=== PATIENT | male | born 1965 | race African-American/Black ===

== ENCOUNTER 2019-10-23 09:07 | Inpatient (IN) | payer SELFPAY ==
--- NOTE | 2019-10-23 10:01 | RAD ---
EXAM: Single view of the chest HISTORY: CHF and edema COMPARISON: None FINDINGS: Single view of the chest shows an enlarged cardiomediastinal silhouette. There is no eviden ce of consolidation, mass, or pleural effusion. The bones are unremarkable. IMPRESSION: Cardiomegaly
[2019-10-23] MEDS ORDERED: Furosemide 40 MG/4 ML VIAL ONE (10:08)
[2019-10-23 10:39] LABS: Hemoglobin 10.3 g/dL (14.0-18.0); Mean Corpuscular HGB CONC 29.1 g/dL (32.0-36.0); Mean Corpuscular Hemoglobin 23.2 pg (27.0-31.0); Mean Corpuscular Volume 79.7 fL (78.0-98.0); Mean Platelet Volume 10.2 fL (7.4-10.4); Platelet Count 244 thou/uL (130-400); RBC Distribution Width 15.8 % (11.5-14.5); Red Blood Cell (RBC) Count 4.44 mill/uL (4.70-6.10); White Blood Cell (WBC) Count 6.3 thou/uL (4.8-10.8)
[2019-10-23 10:42] LABS: #Eosinphils 0.1 thou/uL (0.0-0.7); #Lymphocytes 1.4 thou/uL (1.20-3.40); #Monocytes 0.5 thou/uL (0.11-0.59); #Neutrophils 4.3 thou/uL (1.40-6.50); %Basophils 0.6 % (0.0-1.0); %Eosinophils 1.5 % (0.0-10.0); %Lymphocytes 21.6 % (21.0-51.0); %Monocytes 8.3 % (0.0-10.0); %Neutrophils 68.1 % (42.0-75.0)
[2019-10-23 10:53] LABS: ALT (SGPT) 11 U/L (8-55); AST (SGOT) 20 U/L (5-34); Albumin 2.6 g/dL (3.5-5.0); Alkaline Phosphatase 121 U/L (40-110); Anion Gap 11 mmol/L (10-20); BUN (Urea Nitrogen) 36 mg/dL (8.4-25.7); Bilirubin, Total 0.3 mg/dL (0.2-1.2); Calc. Creatinine Clearance 0 mL/min (70-130); Calcium 8.1 mg/dL (7.8-10.44); Carbon Dioxide 22 mmol/L (22-29); Chloride 111 mmol/L (98-107); Estimated GFR-MDRD 32; Glucose 98 mg/dL (70-105); Potassium 5.1 mmol/L (3.5-5.1); Protein, Total 5.6 g/dL (6.0-8.3); Sodium 139 mmol/L (136-145)
[2019-10-23 10:58] LABS: Band 4 % (5-11); Lymphocytes 27 % (21-51); MDiff Complete? YES; Microcytosis SLIGHT = 6-15 cells (100X) (0-5/hpf); Monocytes 7 % (0-10); Neutrophil 61 % (42-75); Polychromasia SLIGHT = 2-3 cells (100X) (0-2/hpf)
[2019-10-23 11:26] LABS: CKMB 6.2 ng/mL (0-6.6)
[2019-10-23 14:35] LABS: Troponin I 0.035 ng/mL (< 0.028)
[2019-10-23] MEDS ORDERED: hydrALAZINE 25 MG TAB PO SCH (16:30)
--- NOTE | 2019-10-23 17:12 | PDOC.HHP ---
Hospitalist HPI - History of Present Illness shortness of breath and swelling History of Present Illness: Mr. Carolina is a 53yo M w/ MHx of CHF (unknown if reduced or preserved ejection fraction), T2DM, HTN who presented to the ED for shortness of breath and swelling. Patient recently relocated from [place]. Two weeks ago, had nausea , vomiting, and diarrhea, so stopped his medications, including lasix. Although his symptoms resolved within four days, didn't retake his medication because was afraid that he would redevelop symptoms. Developed progressively worsening diffuse swelling and over the couple of days prior to presentation, developed dyspnea as with slight movement, orthopnea, and paroxysmal nocturnal dyspnea, so came to the ED. At baseline around March, could walk a block before getting short of breath On encounter, lying comfortably in bed and complained, in addition to abovementioned, of dysuria and increased urinary frequency. Denies fatigue, syncope, presyncope, chest pain or pressure, jaw, shoulder, back pain, pleuritic pain, sputum production, palpitations, diarrhea, hematuria, hematochezia, melena ED Course: In the ED, found to be anasrca, BNP in 3000s, and CXR showed mild interstitial edema with cephalization. He was admitted to the telemetry floor for further management Hospitalist ROS - Review of Systems Constitutional: denies: fever, chills, sweats, weakness, malaise, other Respiratory: reports: SOB with excertion. denies: cough, dry, shortness of breath, hemoptysis, pleuritic pain, sputum, wheezing, other Cardiovascular: reports: orthopnea, paroxysmal noc. dyspnea, edema. denies: chest pain, palpitations, light headedness, other Gastrointestinal: denies: nausea, vomiting, abdominal pain, diarrhea, constipation, melena, hematochezia, other Genitourinary: reports: dysuria, frequency. denies: incontinence, hematuria, retention, other Neurological: denies: weakness, numbness, incoordination, change in speech, confusion, seizures Hospitalist History - Past Medical History Cardiac: reports: CHF, HTN. denies: AFIB, CAD Pulmonary: denies: asthma, COPD Gastrointestinal: reports: no pertinent history Heme/Onc: reports: no pertinent history Hepatobiliary: reports: no pertinent history Psych: reports: no pertinent history Musculoskeletal: reports: no pertinent history Rheumatologic: reports: no pertinent history Infectious Disease: reports: no pertinent history - Past Surgical History Past Surgical History: reports: no pertinent history - Family History Family History: reports: diabetes mellitus, hypertension - Social History Smoking Status: Former smoker (for one year only, in 2006) Tobacco Type: cigarettes Alcohol: reports: Heavy (stopped years ago but drank heavily for 30+ years) Drugs: reports: none Living Situation: With Family Activity level: independent ambulation - Exam General Appearance: NAD, awake alert General - other findings: morbidly obese Eye: PERRL, anicteric sclera Neck: no thyromegaly, no lymphadenopathy, JVD Heart: RRR, no murmur, no gallops, no rubs Respiratory: CTAB, no wheezes, no rales, no ronchi Respiratory - other findings: mildy reduced breath sounds throughout, likely due to body habitus Gastrointestinal: non-tender, non-distended, normal bowel sounds Gastrointestinal - other findings: pitting nodular edema on lower half Extremities: 2+ LE edema Extremities - other findings: anasarca Neurological: cranial nerve grossly intact, normal sensation to touch. negative : no weakness, no focal deficits, facial droop Musculoskeletal: normal tone, normal strength, no muscle wasting Psychiatric: normal affect, normal behavior, A&O x 3 Hospitalist Results - Labs Result Diagrams: 10/23/19 10:21 10/23/19 10:21 Lab results: WBC 6.3 thou/uL (4.8-10.8) 10/23/19 10:21 Hgb 10.3 g/dL (14.0-18.0) L 10/23/19 10:21 Hct 35.4 % (42.0-52.0) L 10/23/19 10:21 MCV 79.7 fL (78.0-98.0) 10/23/19 10:21 Plt Count 244 thou/uL (130-400) 10/23/19 10:21 Neutrophils % 68.1 % (42.0-75.0) 10/23/19 10:21 Band Neuts % (Manual) 4 % (5-11) L 10/23/19 10:21 Sodium 139 mmol/L (136-145) 10/23/19 10:21 Potassium 5.1 mmol/L (3.5-5.1) 10/23/19 10:21 Chloride 111 mmol/L (98-107) H 10/23/19 10:21 Carbon Dioxide 22 mmol/L (22-29) 10/23/19 10:21 BUN 36 mg/dL (8.4-25.7) H 10/23/19 10:21 Creatinine 2.58 mg/dL (0.7-1.3) H 10/23/19 10:21 Glucose 98 mg/dL (70-105) 10/23/19 10:21 Calcium 8.1 mg/dL (7.8-10.44) 10/23/19 10:21 Total Bilirubin 0.3 mg/dL (0.2-1.2) 10/23/19 10:21 AST 20 U/L (5-34) 10/23/19 10:21 ALT 11 U/L (8-55) 10/23/19 10:21 Alkaline Phosphatase 121 U/L (40-110) H 10/23/19 10:21 CK-MB (CK-2) 6.2 ng/mL (0-6.6) 10/23/19 10:21 Troponin I 0.035 ng/mL (< 0.028) H 10/23/19 14:08 B-Natriuretic Peptide 3444.0 pg/mL (0-100) H 10/23/19 10:21 Serum Total Protein 5.6 g/dL (6.0-8.3) L 10/23/19 10:21 Albumin 2.6 g/dL (3.5-5.0) L 10/23/19 10:21 - EKG Interpretation EKG: sinus rhythm, lateral symmetric T-wave inversions, poor R wave progression - Radiology Interpretation Chest x-ray Status: image reviewed by me Additional Comment: cardiomegaly, interstitial edema, and cephalization Hospitalist H&P A/P - Problem (1) CHF (congestive heart failure), NYHA class III Code(s): I50.9 - HEART FAILURE, UNSPECIFIED Status: Acute (2) Hypertensive emergency Code(s): I16.1 - HYPERTENSIVE EMERGENCY Status: Acute (3) T2DM (type 2 diabetes mellitus) Status: Acute (4) Microcytic anemia Code(s): D50.9 - IRON DEFICIENCY ANEMIA, UNSPECIFIED Status: Acute - Plan Plan: #Poorly controlled heart failure due to medication nonadherence; CHF III -medication nonadherence, including to lasix -anasarca, JVD; BNP 3K -EKG lateral ischemia, trop indeterminate -> negative; likely demand ishemia due to hyperdynamic heart function in context of hypervolemia -lasix 40mg IVP bid; strict I/O -hold home coreg considering nonadherence; will restart as symptoms improve -Echocardiography to evaluate for necessity of life saving devices/pacing/ valvular disease #HTN emergency on presentation, systolic > 180 ALEX/CKD, pulmonary edema received Nitro in ED -avoid nephrotoxic at this point -started amlodipine, hydralazine #ALEX/CKD -Creatinine 2.58; considering nonadherence, may be CKD due to T2DM/HTN #T2DM -at home, on metformin and glipizide -morbidly obese, history of nonadherence -sliding scale -A1c, lipid panel #disposition/PPx -full code; patient did not want to discuss surrogate at this point -GI PPx: no indication -DVT PPx: lovenox
[2019-10-23 17:22] LABS: ALT (SGPT) 11 U/L (8-55); AST (SGOT) 21 U/L (5-34); Albumin 2.5 g/dL (3.5-5.0); Alkaline Phosphatase 121 U/L (40-110); Anion Gap 14 mmol/L (10-20); BUN (Urea Nitrogen) 37 mg/dL (8.4-25.7); Bilirubin, Total Less than 0.2 mg/dL (0.2-1.2); Calc. Creatinine Clearance 57 mL/min (70-130); Calcium 7.7 mg/dL (7.8-10.44); Carbon Dioxide 19 mmol/L (22-29); Chloride 110 mmol/L (98-107); Estimated GFR-MDRD 34; Glucose 116 mg/dL (70-105); Potassium 5.3 mmol/L (3.5-5.1); Protein, Total 5.5 g/dL (6.0-8.3); Sodium 138 mmol/L (136-145)
[2019-10-23 17:24] LABS: Troponin I 0.022 ng/mL (< 0.028)
[2019-10-23] MEDS ORDERED: Amlodipine 10 MG TAB PO SCH (17:30)
[2019-10-23 17:32] LABS: Bacteria/HPF None Seen HPF (None Seen); Bilirubin Negative (Negative); Blood, Urine 1+ (Negative); Clarity Clear (Clear); Glucose, Urine (Dipstick) 30 mg/dL (Negative); Leukocyte Negative Leu/uL (Negative); Nitrite Negative (Negative); Protein, Urine (Dipstick) 300 mg/dL (Neg-Trace); Squamous Epithelial 0-3 HPF (0-3); Urobilinogen Normal mg/dL (Less than 2); WBC/HPF 0-3 HPF (0-3)
[2019-10-23] MEDS: hydrALAZINE 25 MG TAB PO SCH (21:05)
[2019-10-24 05:40] LABS: Hemoglobin A1c 5.7 % (4.0-6.0)
[2019-10-24] MEDS: Furosemide 40 MG/4 ML VIAL SLOW IVP SCH ×2 (05:47→15:17)
[2019-10-24 05:58] LABS: Anion Gap 10 mmol/L (10-20); BUN (Urea Nitrogen) 36 mg/dL (8.4-25.7); Calc. Creatinine Clearance 59 mL/min (70-130); Calcium 7.8 mg/dL (7.8-10.44); Carbon Dioxide 25 mmol/L (22-29); Cardiac Risk 2.8 (Less than 4.5); Chloride 109 mmol/L (98-107); Cholesterol 153 mg/dl (< 200 Desired); Estimated GFR-MDRD 32; Glucose 90 mg/dL (70-105); HDL Cholesterol 55 mg/dL (>60 Neg Risk); Iron 16 ug/dL (65-175); Iron Binding Capacity, Total 244 mcg/dL (261-462); LDL Cholesterol, Calculated 80 mg/dL; Sodium 139 mmol/L (136-145); Triglycerides 90 mg/dL (Less than 150)
[2019-10-24] MEDS ORDERED: Prevnar 13-Val Conj/PF 0.5 ML SYRINGE IM ONE (09:00)
[2019-10-24] MEDS ORDERED: Amlodipine 10 MG TAB PO SCH (09:00)
[2019-10-24] MEDS ORDERED: FLU VACC QS2019-20(6MOS UP)/PF 60 MCG/0.5 ML SYRINGE IM ONE (09:00)
[2019-10-24] MEDS: Enoxaparin Sodium 30 MG/0.3 ML SYRINGE SC SCH (09:56)
[2019-10-24] MEDS: hydrALAZINE 25 MG TAB PO SCH ×3 (09:56→20:15)
[2019-10-24] MEDS: Ferrous Sulfate 325 MG TAB PO SCH ×4 (09:57→20:17)
--- NOTE | 2019-10-24 20:12 | CON ---
DATE OF CONSULTATION: 10/24/2019 CONSULTING PROVIDER: Dr. Arnaldo Perkins. REASON FOR CONSULTATION: Iron-deficiency anemia. HISTORY OF PRESENT ILLNESS: The patient is a 53-year-old male with past medical history of congestive heart failure, diabetes, and hypertension, presenting with shortness of breath/dyspnea on exertion, bilateral lower extremity edema and increased abdominal distention and anemia. Upon speaking with the patient, the patient was admitted to [facility] in June 2019 with increased shortness of breath and swelling of the upper lower extremities. He subsequently underwent diuretic therapy as an inpatient and with adequate diuresis, was ultimately discharged to home with home diuretics. While at home, the outpatient diuretics were felt not to be as effective as what was being experienced in the hospital, so he progressively increased the dosing of his diuretics, resulting in increased nausea, vomiting, and diarrhea. With the onset of these symptoms, it prompted him to discontinue his diuretics altogether and over the last 2 to 3 weeks has been slowly having progressive shortness of breath, dyspnea on exertion and bilateral lower extremity edema that has now resulted in increased abdominal distention as well. Given the worsening shortness of breath, it then prompted him to seek healthcare assistance in the [facility] ER and while in the ER was noted to have a mild anemia. Further characterization of this anemia showed that it may have a possible component for iron-deficiency anemia, so he was admitted to the hospital both for diuretic management, in addition to iron-deficiency anemia. Upon questioning the patient about his iron-deficiency anemia, he states that he was diagnosed with iron-deficiency anemia approximately 3 years ago and has required the infusion of IV iron on multiple occasions in the past. He cannot recall any specific etiology for his anemia and he has not had either upper or lower endoscopy. He currently denies any family history of colon polyps or colon cancer, although his father was diagnosed with hepatocellular carcinoma secondary to cirrhosis. Currently, he states that he has been having subjective chills, weight gain ( cannot quantify) and sudden blurry vision to his right eye. However, he currently denies any nausea, vomiting, hematemesis, melena, hematochezia, dysphagia, odynophagia, weight loss, rashes, or easy bruising along with jaundice. REVIEW OF SYSTEMS: A 10-category review of systems was obtained with all responses negative except for the pertinent positives as listed in the HPI. PAST MEDICAL HISTORY: As per HPI. PAST SURGICAL HISTORY: None. FAMILY HISTORY: Denies any GI malignancies other than his father diagnosed with hepatocellular carcinoma secondary to cirrhosis. SOCIAL HISTORY: Denies any tobacco, alcohol, or illicit drug use, although he does have a history of higher alcohol consumption. OUTPATIENT MEDICATIONS: Reviewed. ALLERGIES: IODINE AND LISINOPRIL. PHYSICAL EXAMINATION: VITAL SIGNS: Temperature 97.8, pulse 84, blood pressure 125/74, respiratory rate 16, saturating 98% on room air. GENERAL: The patient was lying in bed, in no acute distress. Alert and oriented x4. No conversational dyspnea. HEENT: Normocephalic atraumatic. No scleral icterus. NECK: Supple. CARDIOVASCULAR: Regular rate and rhythm with no discernible murmurs, gallops, or rubs. RESPIRATORY: Diminished breath sounds in the bilateral lower lung [place], but clear to auscultation bilaterally otherwise. ABDOMEN: Normoactive bowel sounds, soft, mild to moderately distended with thickened skin on the lower abdominal quadrants consistent with anasarca. Tenderness to palpation in all abdominal quadrants to both light and deep palpation. EXTREMITIES: 2+/3+ bilateral lower extremity edema extending into the bilateral thighs. LABORATORY DATA: CBC with a white blood cell count of 6.3, hemoglobin 10.3, hematocrit 35.4, platelets 244. Chemistry with a sodium of 139, potassium 5, chloride 109, CO2 of 25, BUN 36, creatinine 2.6, glucose 90, AST 21, ALT 11, alkaline phosphatase 121, and total bilirubin less than 0.2. Iron 16, ferritin 20, total iron binding complex 244. IMAGING DATA: Chest x-ray obtained on October 23, 2019, showed an enlarged cardiomediastinal silhouette. There was no evidence of consolidation mass or pleural effusion. ASSESSMENT AND PLAN: The patient is a 53-year-old male with past medical history of diabetes, hypertension, and congestive heart failure, presenting with acute on chronic exacerbation of his congestive heart failure in addition to a mixed anemia type picture. 1. Anemia. The patient is presenting with a mild anemia characterized as a hemoglobin of 10.3 and hematocrit of 35.4. Upon further characterization of this anemia, he was noted to have a low iron and low ferritin, which can be seen in iron-deficiency anemia as well as a slightly elevated RDW, but his MCV is actually normal and his total iron binding complex is low indicative more of an anemia of chronic disease or renal disease process. Upon speaking with the patient, he has been diagnosed with iron deficiency in the past and has received multiple infusions of IV iron in order to correct although he has never had an upper endoscopy or colonoscopy for further evaluation of this iron-deficiency anemia. At this time , he has a mixed picture between iron-deficiency anemia and anemia of chronic disease (likely related to his congestive heart failure) and would benefit from further evaluation with upper and lower endoscopy. However, given his significantly worsening congestive heart failure, optimization of his cardiac status should be performed first prior to any sort of invasive interventions. RECOMMENDATIONS: 1. We would continue to trend his H and H and transfuse as necessary to maintain an H and H of 7/. 2. Continue to monitor clinically for signs of active GI bleeding. 3. We would continue to optimize his cardiac status with diuretic management in light of acute exacerbation of his congestive heart failure. Once the patient has experienced adequate diuresis, endoscopy could be considered at that time. 4. We will hold on upper endoscopy and colonoscopy for further evaluation of this iron-deficiency anemia. 5. We will continue to monitor the patient. Once the patient is adequately diuresed, would proceed with endoscopy at that time. We will continue to follow peripherally until adequately diuresed. Please call with any questions. Job ID: [id number] [facility]ITAL[facility]
--- NOTE | 2019-10-24 20:42 | PDOC.HOSPP ---
- Subjective Encounter Date: 10/24/19 Encounter Time: 08:00 Subjective: no overnight events. This morning, has no complaints and endorses improved breathing and edema. - Objective Vital Signs & Weight: Vital Signs (12 hours) Temp Pulse Resp BP BP BP Pulse Ox 10/24/19 20:15 90 137/79 10/24/19 19:25 98.4 F 90 16 137/79 95 10/24/19 15:17 84 125/74 10/24/19 15:15 97.8 F 81 16 125/74 98 10/24/19 12:03 98.5 F 88 18 153/88 H 95 10/24/19 09:56 90 163/94 H 10/24/19 09:55 90 163/94 H 10/24/19 09:10 93 L Weight Weight 248 lb 1.6 oz I&O: 10/23/19 10/24/19 10/25/19 06:59 06:59 06:59 Intake Total 610 764 Output Total 450 1025 Balance 160 -261 Result Diagrams: 10/23/19 10:21 10/24/19 04:53 Additional Labs: Accuchecks 10/24/19 10/24/19 10/24/19 20:11 16:26 10:51 POC Glucose 131 H 122 H 135 H 10/23/19 21:08 POC Glucose 109 Hospitalist ROS - Review of Systems Constitutional: denies: fever, chills, sweats, weakness, malaise, other Respiratory: denies: cough, dry, shortness of breath, hemoptysis, SOB with excertion, pleuritic pain, sputum, wheezing, other Cardiovascular: reports: orthopnea, paroxysmal noc. dyspnea, edema. denies: chest pain, palpitations, light headedness, other Gastrointestinal: denies: nausea, vomiting, abdominal pain, diarrhea, constipation, melena, hematochezia, other Genitourinary: denies: dysuria, frequency, incontinence, hematuria, retention, other - Medication Medications: Active Medications Generic Name Dose Route Start Last Admin Trade Name Freq PRN Reason Stop Dose Admin Amlodipine Besylate 10 mg 10/24/19 09:00 10/24/19 09:55 Norvasc PO 10 mg DAILY JEN Administration Enoxaparin Sodium 30 mg 10/24/19 09:00 10/24/19 09:56 Lovenox SC 30 mg 0900 JEN Administration Ferrous Sulfate 325 mg 10/24/19 09:30 10/24/19 20:17 Feosol PO 325 mg Q2D JEN Administration Ferrous Sulfate 325 mg 10/24/19 15:00 10/24/19 15:17 Feosol PO 325 mg Q2D JEN Administration Ferrous Sulfate 325 mg 10/24/19 21:00 10/24/19 20:15 Feosol PO 325 mg Q2D JEN Administration Furosemide 40 mg 10/24/19 06:00 10/24/19 15:17 Lasix SLOW IVP 40 mg 0600,1400 JEN Administration Hydralazine HCl 25 mg 10/23/19 21:00 10/24/19 20:15 Apresoline PO 25 mg TID JEN Administration - Exam General Appearance: NAD, awake alert Heart: RRR, no murmur, no gallops, no rubs, normal peripheral pulses Respiratory: CTAB, no wheezes, no ronchi, normal chest expansion, no tachypnea Respiratory - other findings: mild inspiratory rales, lower [place] Gastrointestinal - other findings: edema Extremities: 2+ LE edema Extremities - other findings: no improvement Psychiatric: normal affect, normal behavior, A&O x 3 Hosp A/P (1) CHF (congestive heart failure), NYHA class III Code(s): I50.9 - HEART FAILURE, UNSPECIFIED Status: Acute (2) Hypertensive emergency Code(s): I16.1 - HYPERTENSIVE EMERGENCY Status: Acute (3) T2DM (type 2 diabetes mellitus) Status: Acute (4) Microcytic anemia Code(s): D50.9 - IRON DEFICIENCY ANEMIA, UNSPECIFIED Status: Acute - Plan #CHFrEF III -EF 10-15%; global hypokinesis -symptoms improved; will gradually reintroduce coreg; stop amlodipine to prevent hypotension and contribution to edema -will consult cardiology; changed to inpatient status considering requires further evaluation, optimization, and possible life vest/AICD #ALEX -no significant change -continue diuresis -can start lisinopril gradually, entresto if tolerates with resolution of ALEX #mixed anemia -RDW high MCV borderline low, ferritin, iron and sat low c/w iron deficiency but transferrin borderline low c/w anemia of chronic inflammation -per GI, will consider endoscopy once patient stabilized -conitnue H&H -iron being supplemented. -
[2019-10-25 05:20] LABS: Anion Gap 11 mmol/L (10-20); BUN (Urea Nitrogen) 38 mg/dL (8.4-25.7); Calc. Creatinine Clearance 52 mL/min (70-130); Calcium 7.4 mg/dL (7.8-10.44); Carbon Dioxide 22 mmol/L (22-29); Chloride 111 mmol/L (98-107); Estimated GFR-MDRD 30; Glucose 124 mg/dL (70-105); Potassium 5.2 mmol/L (3.5-5.1); Sodium 139 mmol/L (136-145)
[2019-10-25 05:54] LABS: #Eosinphils 0.2 thou/uL (0.0-0.7); #Lymphocytes 1.6 thou/uL (1.20-3.40); #Monocytes 0.5 thou/uL (0.11-0.59); #Neutrophils 4.3 thou/uL (1.40-6.50); %Basophils 0.6 % (0.0-1.0); %Eosinophils 2.4 % (0.0-10.0); %Lymphocytes 24.4 % (21.0-51.0); %Monocytes 7.5 % (0.0-10.0); %Neutrophils 65.1 % (42.0-75.0); Hemoglobin 9.9 g/dL (14.0-18.0); Mean Corpuscular HGB CONC 28.8 g/dL (32.0-36.0); Mean Corpuscular Hemoglobin 23.3 pg (27.0-31.0); Mean Platelet Volume 9.8 fL (7.4-10.4); Platelet Count 276 thou/uL (130-400); RBC Distribution Width 15.8 % (11.5-14.5); Red Blood Cell (RBC) Count 4.24 mill/uL (4.70-6.10); White Blood Cell (WBC) Count 6.6 thou/uL (4.8-10.8)
[2019-10-25] MEDS: Furosemide 40 MG/4 ML VIAL SLOW IVP SCH ×2 (06:04→14:32)
[2019-10-25] MEDS ORDERED: Carvedilol 25 MG TAB PO SCH ×2 (08:00→09:00)
[2019-10-25] MEDS: Enoxaparin Sodium 30 MG/0.3 ML SYRINGE SC SCH (08:38)
[2019-10-25] MEDS ORDERED: Lisinopril 20 MG TAB PO SCH (09:00)
--- NOTE | 2019-10-25 09:47 | CON ---
DATE OF CONSULTATION: 10/25/2019 HISTORY OF PRESENT ILLNESS: The patient is an unfortunate 53-year-old gentle with a history of a severe nonischemic cardiomyopathy, who presents with increasing dyspnea and lower extremity swelling. The patient has a history of apparent nonischemic cardiomyopathy. In 11/2018, he developed congestive heart failure. He underwent a cardiac catheterization. He states that he was found to have normal coronary arteries. The patient subsequently was placed on medical therapy. He was readmitted several months later to another hospital in [place] with congestive heart failure. The patient states he has been compliant with his medications. He is nauseated and stopped taking his medications a few weeks ago. The patient started taking diuretics again, but continued to have worsening edema. The patient denies having any chest discomfort. He reports having dyspnea with minimal exertion. PAST MEDICAL HISTORY: 1. Cardiomyopathy. 2. Hypertension. 3. Diabetes mellitus. 4. Dyslipidemia. 5. Anemia. PAST SURGICAL HISTORY: SOCIAL HISTORY: Nonsmoker. ALLERGIES: IODINE. FAMILY HISTORY: No strong family history of coronary artery disease. PHYSICAL EXAMINATION: GENERAL: This is an ill-appearing gentleman. VITAL SIGNS: Blood pressure 137/79. NECK: No jugular venous distention. LUNGS: Clear to auscultation. HEART: Regular rate and rhythm with a normal S1, S2, 1/6 systolic murmur. ABDOMEN: Markedly distended. EXTREMITIES: Severe bilateral edema. LABORATORY RESULTS: White blood cell count 6.6, hemoglobin 9.9, hematocrit 34.3 , and platelets 276. Sodium was 139, potassium 5.2, chloride 111, bicarbonate 22 , BUN 28, and creatinine 2.7. EKG revealed him to have normal sinus rhythm, nonspecific T-wave abnormality. Echocardiogram revealed severe decrease in left ventricular systolic function, estimated ejection fraction 10% to 15% with global hypokinesis. IMPRESSION: 1. Congestive heart failure. 2. Severe nonischemic cardiomyopathy. 3. Renal insufficiency. 4. Diabetes mellitus. 5. Hypertension. 6. Anemia. PLAN: This unfortunate gentleman presents with worsening congestive heart failure. We would recommend placing him on IV dobutamine. We will continue IV Lasix. We will start the patient on BiDil since he has significant renal insufficiency and avoid TODD inhibitor therapy at this time. We will obtain records from his previous hospitalizations. We will follow this patient with you. Job ID: [id number] [facility]
[2019-10-25] MEDS: DOBUTamine 500 mg/250 ml 250 ML IVPB SCH (10:56)
--- NOTE | 2019-10-25 13:26 | PDOC.HOSPP ---
- Subjective Encounter Date: 10/25/19 Encounter Time: 09:00 Subjective: no overnight events. This morning, breathing is better and feels that swelling has gone down as well. no complaints. - Objective Vital Signs & Weight: Vital Signs (12 hours) Temp Pulse Resp BP BP BP Pulse Ox 10/25/19 11:18 97.5 F L 81 18 126/67 95 10/25/19 08:37 137/79 10/25/19 07:36 97.9 F 82 16 140/83 96 10/25/19 03:10 98.0 F 84 17 124/69 96 Weight Weight 252 lb 12.8 oz I&O: 10/24/19 10/25/19 10/26/19 06:59 06:59 06:59 Intake Total 610 1244 Output Total 450 1575 Balance 160 -331 Result Diagrams: 10/25/19 05:40 10/25/19 04:48 Additional Labs: Accuchecks 10/25/19 10/24/19 10/24/19 11:25 20:11 16:26 POC Glucose 116 H 131 H 122 H Hospitalist ROS - Review of Systems Constitutional: denies: fever, chills, sweats, weakness, malaise, other Respiratory: denies: cough, dry, shortness of breath, hemoptysis, SOB with excertion (endorses being able to walk down [place] without shortness of breath, improvement), pleuritic pain, sputum, wheezing, other Cardiovascular: denies: chest pain, palpitations, orthopnea, paroxysmal noc. dyspnea, edema, light headedness, other Gastrointestinal: denies: nausea, vomiting, abdominal pain, diarrhea, constipation, melena, hematochezia, other Genitourinary: denies: dysuria, frequency, incontinence, hematuria, retention, other - Medication Medications: Active Medications Generic Name Dose Route Start Last Admin Trade Name Freq PRN Reason Stop Dose Admin Enoxaparin Sodium 30 mg 10/24/19 09:00 10/25/19 08:38 Lovenox SC 30 mg 0900 [facility] Administration Ferrous Sulfate 325 mg 10/24/19 09:30 10/24/19 20:17 Feosol PO 325 mg Q2D JEN Administration Ferrous Sulfate 325 mg 10/24/19 15:00 10/24/19 15:17 Feosol PO 325 mg Q2D JEN Administration Ferrous Sulfate 325 mg 10/24/19 21:00 10/24/19 20:15 Feosol PO 325 mg Q2D JEN Administration Furosemide 40 mg 10/24/19 06:00 10/25/19 06:04 Lasix SLOW IVP 40 mg 0600,1400 JEN Administration Dobutamine HCl/Dextrose 250 mls @ 17.2 mls/hr 10/25/19 09:30 10/25/19 10:56 Dobutamine 500 Mg/250 Ml IVPB 250 mls INF JEN Administration Protocol 5 MCG/KG/MIN - Exam General Appearance: NAD, awake alert Neck: no JVD Heart: RRR, no murmur, no gallops, no rubs Respiratory: CTAB, no wheezes, no ronchi Respiratory - other findings: mild b/l lower field inspiratory rales Extremities: 2+ LE edema Extremities - other findings: unchanged Musculoskeletal: normal tone, normal strength Psychiatric: normal affect, normal behavior, A&O x 3 Hosp A/P (1) CHF (congestive heart failure), NYHA class III Code(s): I50.9 - HEART FAILURE, UNSPECIFIED Status: Acute (2) Hypertensive emergency Code(s): I16.1 - HYPERTENSIVE EMERGENCY Status: Acute (3) T2DM (type 2 diabetes mellitus) Status: Acute (4) Microcytic anemia Code(s): D50.9 - IRON DEFICIENCY ANEMIA, UNSPECIFIED Status: Acute - Plan #CHFrEF III -EF 10-15%; global right hypokinesis -per cardiology, stopped lisinopril (ALEX, reduced GFR), started Bidil, continue hydralazine, start dobutamine #ALEX -no significant change -continue diuresis -can start lisinopril gradually, entresto if tolerates with resolution of ALEX #mixed anemia -RDW high MCV borderline low, ferritin, iron and sat low c/w iron deficiency but transferrin borderline low c/w anemia of chronic inflammation -per GI, will consider endoscopy once patient stabilized -conitnue H&H -iron being supplemented.
[2019-10-25] MEDS: hydrALAZINE 25 MG TAB PO SCH ×2 (14:33→20:49)
[2019-10-25] MEDS ORDERED: Isosorbide Dinitrate 20 MG TAB PO SCH ×2 (15:00→16:00)
--- NOTE | 2019-10-25 15:54 | EKG ---
Test Reason : Blood Pressure : / mmHG Vent. Rate : 094 BPM Atrial Rate : 094 BPM P-R Int : 136 ms QRS Dur : 088 ms QT Int : 372 ms P-R-T Axes : 059 017 212 degrees QTc Int : 465 ms Normal sinus rhythm Low voltage QRS Poor anterior R wave progression Abnormal ECG Confirmed by DR. Danica BERMEO MD ([id number]) on 10/25/2019 3:53:56 PM Referred By: Confirmed By:DR. Danica BERMEO MD
[2019-10-25] MEDS: Isosorbide Dinitrate 20 MG TAB PO SCH ×2 (17:02→20:50)
[2019-10-25] MEDS ORDERED: Furosemide 100 MG/10 ML VIAL SLOW IVP SCH (18:45)
[2019-10-26] MEDS: DOBUTamine 500 mg/250 ml 250 ML IVPB SCH ×2 (04:16→17:00)
[2019-10-26] MEDS: Furosemide 100 MG/10 ML VIAL SLOW IVP SCH ×2 (05:47→14:02)
[2019-10-26 06:01] LABS: Hemoglobin 9.8 g/dL (14.0-18.0)
[2019-10-26 06:25] LABS: Magnesium 1.9 mg/dL (1.6-2.6); Potassium 4.2 mmol/L (3.5-5.1)
[2019-10-26] MEDS: hydrALAZINE 25 MG TAB PO SCH ×3 (08:54→20:04)
[2019-10-26] MEDS: Isosorbide Dinitrate 20 MG TAB PO SCH ×3 (08:54→20:04)
[2019-10-26] MEDS: Enoxaparin Sodium 30 MG/0.3 ML SYRINGE SC SCH (08:56)
[2019-10-26] MEDS ORDERED: Metolazone 5 MG TAB PO SCH (13:30)
--- NOTE | 2019-10-26 13:34 | PDOC.HOSPP ---
- Subjective Encounter Date: 10/26/19 Encounter Time: 13:32 Subjective: Doing ok. Breathing ok. Voiding well. No new complaints. - Objective Vital Signs & Weight: Vital Signs (12 hours) Temp Pulse Resp BP BP Pulse Ox 10/26/19 11:47 98.9 F 103 H 13 171/80 H 94 L 10/26/19 08:54 113 H 178/83 H 10/26/19 07:49 98.3 F 108 H 18 176/82 H 92 L 10/26/19 04:15 100 16 167/80 H 10/26/19 03:59 98.3 F 101 H 14 111/59 L 96 Weight Weight 246 lb 12.8 oz I&O: 10/25/19 10/26/19 10/27/19 06:59 06:59 06:59 Intake Total 1244 1549 240 Output Total 1575 2300 1200 Balance -331 -751 -960 Result Diagrams: 10/26/19 05:41 10/26/19 05:41 Additional Labs: Accuchecks 10/26/19 10/26/19 10/25/19 10:27 05:42 21:03 POC Glucose 103 88 109 10/25/19 16:44 POC Glucose 113 H Hospitalist ROS - Medication Medications: Active Medications Generic Name Dose Route Start Last Admin Trade Name Sebastian PRN Reason Stop Dose Admin Enoxaparin Sodium 30 mg 10/24/19 09:00 10/26/19 08:56 Lovenox SC 30 mg 0900 JEN Administration Ferrous Sulfate 325 mg 10/24/19 09:30 10/24/19 20:17 Feosol PO 325 mg Q2D JEN Administration Ferrous Sulfate 325 mg 10/24/19 15:00 10/24/19 15:17 Feosol PO 325 mg Q2D JEN Administration Ferrous Sulfate 325 mg 10/24/19 21:00 10/24/19 20:15 Feosol PO 325 mg Q2D JEN Administration Furosemide 80 mg 10/26/19 06:00 10/26/19 05:47 Lasix SLOW IVP 80 mg 0600,1400 JEN Administration Dobutamine HCl/Dextrose 250 mls @ 17.2 mls/hr 10/25/19 09:30 10/26/19 04:16 Dobutamine 500 Mg/250 Ml IVPB 250 mls INF JEN Administration 5 MCG/KG/MIN Isosorbide Dinitrate 20 mg 10/25/19 15:00 10/26/19 08:54 Isordil PO 20 mg TID JEN Administration Sodium Chloride 10 ml 10/25/19 21:00 10/26/19 09:00 Flush - Normal Saline IVF Not Given Q12HR JEN Sodium Chloride 10 ml 10/25/19 09:41 10/26/19 05:47 Flush - Normal Saline IVF 10 ml PRN PRN Administration Saline Flush - Exam General Appearance: NAD, awake alert Heart: RRR, no murmur, no gallops, no rubs, normal peripheral pulses Respiratory: CTAB, no wheezes, no rales, no ronchi, normal chest expansion, no tachypnea, normal percussion Respiratory - other findings: Diminished at bases. Gastrointestinal: soft, non-tender, non-distended, normal bowel sounds, no palpable masses, no hepatomegaly, no splenomegaly, no bruit Extremities: 2+ LE edema Psychiatric: normal affect, normal behavior, A&O x 3 Hosp A/P (1) Anemia of chronic disease Code(s): D63.8 - ANEMIA IN OTHER CHRONIC DISEASES CLASSIFIED ELSEWHERE Status : Acute (2) Nonischemic cardiomyopathy Code(s): I42.8 - OTHER CARDIOMYOPATHIES Status: Acute (3) CHF (congestive heart failure), NYHA class III Code(s): I50.9 - HEART FAILURE, UNSPECIFIED Status: Acute (4) Hypertensive emergency Code(s): I16.1 - HYPERTENSIVE EMERGENCY Status: Acute (5) T2DM (type 2 diabetes mellitus) Status: Acute (6) Stage 3b chronic kidney disease Code(s): N18.3 - CHRONIC KIDNEY DISEASE, STAGE 3 (MODERATE) Status: Acute - Plan CHF due to non-compliance and non-ischemic cardiomyopathy with EF 15%. On Lasix and a Dobutamine with good results so far. Still has anasarca. Dr. Vila increased the Hydralazine and continuing the Isosorbide. No ACEI in light of renal function. Renal function is stable. Blood sugars controlled. Continue iron supplementation, but appears to be related to anemia of chronic disease given low binding capacity.
[2019-10-26] MEDS: Ferrous Sulfate 325 MG TAB PO SCH ×2 (14:01→20:04)
[2019-10-26] MEDS ORDERED: Acetaminophen 325 MG TAB PO PRN (20:04)
--- NOTE | 2019-10-26 20:05 | PRG ---
DATE OF SERVICE: 10/26/2019 REASON FOR CONSULTATION: Iron deficiency anemia, anemia. SUBJECTIVE: The patient states that since admission, his breathing status has improved significantly. However, he does continue to have increased lower extremity edema as well as edema within the lower abdomen. Currently, he is doing well with no difficulties tolerating solid diet and has been on diuretic management with increased urination while on this regimen. Otherwise, he denies any nausea, vomiting, fevers, chills, GI bleeding, dysphagia, or odynophagia. OBJECTIVE: VITAL SIGNS: Temperature 98.2, pulse 105, blood pressure 158/76, respiratory rate 15, saturating 93% on room air. GENERAL: The patient was lying in bed, in no acute distress. Alert and oriented x4. CARDIOVASCULAR: Tachycardic rate, but regular rhythm. RESPIRATORY: Diminished breath sounds in the bilateral lower lung [place], but clear to auscultation otherwise. ABDOMEN: Normoactive bowel sounds, soft, mild to moderately distended abdomen with thickened skin in the lower abdominal quadrants consistent with anasarca that was tender to palpation. EXTREMITIES: 2+ bilateral lower extremity edema extending into the thighs and lower abdomen. LABORATORY DATA: CBC with a hemoglobin of 9.8, hematocrit 33.4. IMAGING DATA: No current GI imaging is available for review. ASSESSMENT AND PLAN: The patient is a 53-year-old male with past medical history of diabetes, hypertension, and congestive heart failure, presenting with an acute on chronic exacerbation of congestive heart failure in addition to a mixed anemia type picture. Anemia. The patient is presenting with mild anemia with no significant decrease during this admission. At this time, characterization yields more mixed type picture between iron deficiency anemia and anemia of chronic disease. With the possibility of iron deficiency anemia and lack of endoscopic studies performed in the past, he may benefit from intraluminal endoscopic evaluation; however, given his significant congestive heart failure, optimization of his cardiac status should be performed prior to any sort of invasive interventions, especially given his stable clinical condition at this time. RECOMMENDATIONS: 1. Would continue to trend his hemoglobin and hematocrit and transfuse as necessary to maintain hemoglobin and hematocrit of 7/21. 2. Continue to monitor clinically for signs of active GI bleeding. 3. Continue with optimization of his cardiac status with aggressive diuresis and cardiology consultation. 4. We will continue to hold on upper endoscopy and colonoscopy until cleared by Cardiology that is safe to proceed. We will continue to follow peripherally until the patient is adequately diuresed and cleared by Cardiology for endoscopy. Please call with any questions. Job ID: [id number]
[2019-10-27 05:24] LABS: Anion Gap 10 mmol/L (10-20); BUN (Urea Nitrogen) 37 mg/dL (8.4-25.7); Calc. Creatinine Clearance 50 mL/min (70-130); Calcium 7.8 mg/dL (7.8-10.44); Carbon Dioxide 28 mmol/L (22-29); Chloride 106 mmol/L (98-107); Estimated GFR-MDRD 30; Glucose 81 mg/dL (70-105); Potassium 4.1 mmol/L (3.5-5.1); Sodium 140 mmol/L (136-145)
[2019-10-27] MEDS: Furosemide 100 MG/10 ML VIAL SLOW IVP SCH ×2 (06:20→13:53)
[2019-10-27] MEDS: DOBUTamine 500 mg/250 ml 250 ML IVPB SCH (09:27)
[2019-10-27] MEDS: Isosorbide Dinitrate 20 MG TAB PO SCH ×3 (09:28→21:36)
[2019-10-27] MEDS: hydrALAZINE 25 MG TAB PO SCH ×3 (09:28→21:36)
[2019-10-27] MEDS: Enoxaparin Sodium 30 MG/0.3 ML SYRINGE SC SCH (09:28)
--- NOTE | 2019-10-27 11:22 | PDOC.HOSPP ---
- Subjective Encounter Date: 10/27/19 Encounter Time: 11:21 Subjective: He reports some dizziness and nausea. Says he feels like his blood sugar is "off", but he doesn't want to eat anything because of the nausea. - Objective Vital Signs & Weight: Vital Signs (12 hours) Temp Pulse Resp BP BP Pulse Ox 10/27/19 09:28 119 H 10/27/19 07:17 98.7 F 119 H 20 143/76 H 94 L 10/27/19 03:30 99.3 F 110 H 14 162/72 H 95 10/27/19 00:00 103 H 15 121/58 L Weight Weight 243 lb 8 oz I&O: 10/26/19 10/27/19 10/28/19 06:59 06:59 06:59 Intake Total 1549 1362 Output Total 2305 4810 Balance -904 -4638 Result Diagrams: 10/26/19 05:41 10/27/19 04:42 Additional Labs: Accuchecks 10/26/19 10/26/19 20:11 16:51 POC Glucose 92 103 Hospitalist ROS - Medication Medications: Active Medications Generic Name Dose Route Start Last Admin Trade Name Freq PRN Reason Stop Dose Admin Acetaminophen 650 mg 10/26/19 20:04 10/26/19 20:15 Tylenol PO 650 mg Q4H PRN Administration Headache/Fever or Pain Enoxaparin Sodium 30 mg 10/24/19 09:00 10/27/19 09:28 Lovenox SC 30 mg 0900 JEN Administration Ferrous Sulfate 325 mg 10/24/19 09:30 10/24/19 20:17 Feosol PO 325 mg Q2D JEN Administration Ferrous Sulfate 325 mg 10/24/19 15:00 10/26/19 14:01 Feosol PO 325 mg Q2D JEN Administration Ferrous Sulfate 325 mg 10/24/19 21:00 10/26/19 20:04 Feosol PO 325 mg Q2D JEN Administration Furosemide 80 mg 10/26/19 06:00 10/27/19 06:20 Lasix SLOW IVP 80 mg 0600,1400 JEN Administration Hydralazine HCl 50 mg 10/26/19 15:00 10/27/19 09:28 Apresoline PO 50 mg TID JEN Administration Dobutamine HCl/Dextrose 250 mls @ 17.2 mls/hr 10/25/19 09:30 10/27/19 09:27 Dobutamine 500 Mg/250 Ml IVPB 250 mls INF JEN Administration 5 MCG/KG/MIN Isosorbide Dinitrate 20 mg 10/25/19 15:00 10/27/19 09:28 Isordil PO 20 mg TID JEN Administration Sodium Chloride 10 ml 10/25/19 21:00 10/27/19 09:27 Flush - Normal Saline IVF Not Given Q12HR JEN Sodium Chloride 10 ml 10/25/19 09:41 10/26/19 05:47 Flush - Normal Saline IVF 10 ml PRN PRN Administration Saline Flush - Exam General Appearance: ill appearing Heart: RRR, no murmur, no gallops, no rubs Heart - other findings: Tachy Respiratory: CTAB, no wheezes, no rales, no ronchi, normal chest expansion, no tachypnea, normal percussion Respiratory - other findings: Diminished Gastrointestinal: soft, non-tender, non-distended, normal bowel sounds, no palpable masses, no hepatomegaly, no splenomegaly, no bruit Extremities: 2+ LE edema Musculoskeletal: generalized weakness Psychiatric: somnolent (mildly) Hosp A/P (1) CHF (congestive heart failure), NYHA class III Code(s): I50.9 - HEART FAILURE, UNSPECIFIED Status: Acute (2) Nonischemic cardiomyopathy Code(s): I42.8 - OTHER CARDIOMYOPATHIES Status: Acute (3) Hypertensive emergency Code(s): I16.1 - HYPERTENSIVE EMERGENCY Status: Acute (4) T2DM (type 2 diabetes mellitus) Status: Acute (5) Stage 3b chronic kidney disease Code(s): N18.3 - CHRONIC KIDNEY DISEASE, STAGE 3 (MODERATE) Status: Acute (6) Anemia of chronic disease Code(s): D63.8 - ANEMIA IN OTHER CHRONIC DISEASES CLASSIFIED ELSEWHERE Status : Acute - Plan Acute on chronic systolic CHF: CHF due to non-compliance and non-ischemic cardiomyopathy with EF 15%. On Lasix and a Dobutamine with good results so far. Over 2 liters off past 24 hours. Still has anasarca. HTN: Dr. Vila increased the Hydralazine and continuing the Isosorbide. No ACEI in light of renal function. CKD: Renal function is stable. Appears to be CKD IIIb DM: Blood sugars controlled. No evidence of hypoglycemia. Only on SSI and not needing that. Anemia: Continue iron supplementation, but appears to be related to anemia of chronic disease given low binding capacity. Nausea: PRN Zofran. May be related to dobutamine gtt.
[2019-10-27] MEDS ORDERED: Digoxin 0.5 MG/2 ML AMP SLOW IVP SCH (13:30)
[2019-10-27] MEDS ORDERED: Metolazone 5 MG TAB PO SCH (13:30)
[2019-10-27] MEDS ORDERED: Digoxin 0.25 MG TAB PO SCH (15:30)
[2019-10-27] MEDS: Ondansetron PF 4 MG/2 ML Vial IVP PRN (21:38)
[2019-10-28] MEDS: DOBUTamine 500 mg/250 ml 250 ML IVPB SCH (01:23)
[2019-10-28 04:20] LABS: #Eosinphils 0.1 thou/uL (0.0-0.7); #Lymphocytes 1.2 thou/uL (1.20-3.40); #Monocytes 0.4 thou/uL (0.11-0.59); #Neutrophils 4.7 thou/uL (1.40-6.50); %Basophils 0.6 % (0.0-1.0); %Eosinophils 1.3 % (0.0-10.0); %Lymphocytes 18.7 % (21.0-51.0); %Monocytes 6.8 % (0.0-10.0); %Neutrophils 72.7 % (42.0-75.0); Mean Corpuscular HGB CONC 30.9 g/dL (32.0-36.0); Mean Corpuscular Hemoglobin 24.5 pg (27.0-31.0); Mean Corpuscular Volume 79.3 fL (78.0-98.0); Mean Platelet Volume 10.1 fL (7.4-10.4); Platelet Count 245 thou/uL (130-400); RBC Distribution Width 15.9 % (11.5-14.5); Red Blood Cell (RBC) Count 4.07 mill/uL (4.70-6.10); White Blood Cell (WBC) Count 6.5 thou/uL (4.8-10.8)
[2019-10-28 04:42] LABS: Anion Gap 12 mmol/L (10-20); BUN (Urea Nitrogen) 37 mg/dL (8.4-25.7); Calc. Creatinine Clearance 49 mL/min (70-130); Carbon Dioxide 27 mmol/L (22-29); Chloride 105 mmol/L (98-107); Estimated GFR-MDRD 29; Glucose 84 mg/dL (70-105); Potassium 4.3 mmol/L (3.5-5.1); Sodium 140 mmol/L (136-145)
[2019-10-28] MEDS: Furosemide 100 MG/10 ML VIAL SLOW IVP SCH ×2 (05:35→15:34)
[2019-10-28] MEDS: Digoxin 0.125 MG TAB PO SCH (10:19)
[2019-10-28] MEDS: Isosorbide Dinitrate 20 MG TAB PO SCH ×3 (10:20→20:47)
[2019-10-28] MEDS: hydrALAZINE 25 MG TAB PO SCH ×3 (10:20→20:44)
[2019-10-28] MEDS: Metolazone 5 MG TAB PO SCH (10:20)
[2019-10-28] MEDS: Enoxaparin Sodium 30 MG/0.3 ML SYRINGE SC SCH (10:21)
[2019-10-28] MEDS: Ferrous Sulfate 325 MG TAB PO SCH ×2 (10:28→20:43)
[2019-10-28] MEDS ORDERED: Milrinone Lactate/D5W 20 MG in Premix Bag 1 BAG IV SCH ×2 (11:30→11:45)
--- NOTE | 2019-10-28 14:58 | PDOC.HOSPP ---
- Subjective Encounter Date: 10/28/19 Subjective: Still feels a little nauseated. No vomiting, but doesn't want to think about eating. Had a little confusion this morning per nurse. - Objective Vital Signs & Weight: Vital Signs (12 hours) Temp Pulse Resp BP BP Pulse Ox 10/28/19 12:07 98.7 F 113 H 16 154/70 H 92 L 10/28/19 10:09 121 H 175/80 H 10/28/19 07:21 98.1 F 117 H 14 189/84 H 95 10/28/19 04:45 116 H 18 154/72 H 100 10/28/19 04:00 99.8 F H Weight Weight 240 lb 6.4 oz I&O: 10/27/19 10/28/19 10/29/19 06:59 06:59 06:59 Intake Total 1362 630 Output Total 8270 1175 Balance -2288 -545 Result Diagrams: 10/28/19 03:56 10/28/19 03:56 Additional Labs: Accuchecks 10/28/19 10/27/19 10/27/19 05:32 21:20 16:32 POC Glucose 96 93 84 Hospitalist ROS - Medication Medications: Active Medications Generic Name Dose Route Start Last Admin Trade Name Freq PRN Reason Stop Dose Admin Acetaminophen 650 mg 10/26/19 20:04 10/26/19 20:15 Tylenol PO 650 mg Q4H PRN Administration Headache/Fever or Pain Digoxin 0.125 mg 10/28/19 09:00 10/28/19 10:19 Lanoxin PO 0.125 mg QAM JEN Administration Enoxaparin Sodium 30 mg 10/24/19 09:00 10/28/19 10:21 Lovenox SC 30 mg 0900 JEN Administration Ferrous Sulfate 325 mg 10/24/19 21:00 10/26/19 20:04 Feosol PO 325 mg Q2D JEN Administration Furosemide 80 mg 10/26/19 06:00 10/28/19 05:35 Lasix SLOW IVP 80 mg 0600,1400 JEN Administration Hydralazine HCl 50 mg 10/26/19 15:00 10/28/19 10:20 Apresoline PO 50 mg TID JEN Administration Milrinone Lactate/Dextrose 20 100 mls @ 9.81 mls/hr 10/28/19 11:45 10/28/19 12:40 mg/ Device IV 100 mls INF JEN Administration Protocol 0.3 MCG/KG/MIN Isosorbide Dinitrate 20 mg 10/25/19 15:00 10/28/19 10:20 Isordil PO 20 mg TID JEN Administration Metolazone 5 mg 10/28/19 08:30 10/28/19 10:20 Zaroxolyn PO 5 mg 0830 JEN Administration Ondansetron HCl 4 mg 10/27/19 11:19 10/27/19 21:38 Zofran IVP 4 mg Q6H PRN Administration Nausea/Vomiting Sodium Chloride 10 ml 10/25/19 21:00 10/28/19 10:21 Flush - Normal Saline IVF 10 ml Q12HR JEN Administration Sodium Chloride 10 ml 10/25/19 09:41 10/26/19 05:47 Flush - Normal Saline IVF 10 ml PRN PRN Administration Saline Flush - Exam General Appearance: NAD, awake alert General - other findings: Obese Heart: RRR, no murmur, no gallops, no rubs, normal peripheral pulses Heart - other findings: Tachy Respiratory: CTAB, no wheezes, no rales, no ronchi, normal chest expansion, no tachypnea, normal percussion Gastrointestinal: soft, non-tender, non-distended, normal bowel sounds, no palpable masses, no hepatomegaly, no splenomegaly, no bruit Extremities: 1+ LE edema Skin: normal turgor Musculoskeletal: generalized weakness Psychiatric: normal affect, normal behavior, A&O x 3 Hosp A/P (1) CHF (congestive heart failure), NYHA class III Code(s): I50.9 - HEART FAILURE, UNSPECIFIED Status: Acute (2) Nonischemic cardiomyopathy Code(s): I42.8 - OTHER CARDIOMYOPATHIES Status: Acute (3) Hypertensive emergency Code(s): I16.1 - HYPERTENSIVE EMERGENCY Status: Resolved (4) T2DM (type 2 diabetes mellitus) Status: Acute (5) Stage 3b chronic kidney disease Code(s): N18.3 - CHRONIC KIDNEY DISEASE, STAGE 3 (MODERATE) Status: Acute (6) Anemia of chronic disease Code(s): D63.8 - ANEMIA IN OTHER CHRONIC DISEASES CLASSIFIED ELSEWHERE Status : Acute - Plan Acute on chronic systolic CHF: CHF due to non-compliance and non-ischemic cardiomyopathy with EF 15%. On Lasix, zaroxolyn. Dobutamin DC'd and Milrinone gtt started. Hopefully it will help the tachycardia and HTN. Down 34# since admission. Still has some edema. HTN: Hyrdalazine and isosorbide. No ACEI in light of renal function. CKD: Renal function is stable. Appears to be CKD IIIb DM: Blood sugars controlled. No evidence of hypoglycemia. Only on SSI and not needing that. Anemia: Continue iron supplementation, but appears to be related to anemia of chronic disease given low binding capacity. Nausea: PRN Zofran. May be related to dobutamine gtt. Monitor for improvement with change to milrinone. Acute metabolic encephalopathy: Seems improved now. Again, may be related to the dobutamine effect.
[2019-10-28 17:50] LABS: #Eosinphils 0.1 thou/uL (0.0-0.7); #Lymphocytes 1.2 thou/uL (1.20-3.40); #Monocytes 0.4 thou/uL (0.11-0.59); #Neutrophils 4.7 thou/uL (1.40-6.50); %Basophils 0.5 % (0.0-1.0); %Eosinophils 2.1 % (0.0-10.0); %Lymphocytes 18.3 % (21.0-51.0); %Monocytes 6.9 % (0.0-10.0); %Neutrophils 72.2 % (42.0-75.0); Hemoglobin 9.9 g/dL (14.0-18.0); Mean Corpuscular HGB CONC 30.4 g/dL (32.0-36.0); Mean Corpuscular Hemoglobin 24.2 pg (27.0-31.0); Mean Corpuscular Volume 79.6 fL (78.0-98.0); Mean Platelet Volume 10.2 fL (7.4-10.4); Platelet Count 283 thou/uL (130-400); RBC Distribution Width 16.1 % (11.5-14.5); Red Blood Cell (RBC) Count 4.08 mill/uL (4.70-6.10); White Blood Cell (WBC) Count 6.5 thou/uL (4.8-10.8)
[2019-10-28 18:14] LABS: Anion Gap 11 mmol/L (10-20); BUN (Urea Nitrogen) 39 mg/dL (8.4-25.7); Calc. Creatinine Clearance 47 mL/min (70-130); Calcium 8.1 mg/dL (7.8-10.44); Carbon Dioxide 30 mmol/L (22-29); Chloride 104 mmol/L (98-107); Estimated GFR-MDRD 28; Glucose 81 mg/dL (70-105); Magnesium 1.7 mg/dL (1.6-2.6); Potassium 4.4 mmol/L (3.5-5.1); Sodium 141 mmol/L (136-145)
[2019-10-28 19:49] LABS: Anion Gap 11 mmol/L (10-20); BUN (Urea Nitrogen) 40 mg/dL (8.4-25.7); Calc. Creatinine Clearance 46 mL/min (70-130); Carbon Dioxide 29 mmol/L (22-29); Chloride 105 mmol/L (98-107); Estimated GFR-MDRD 28; Glucose 82 mg/dL (70-105); Magnesium 1.8 mg/dL (1.6-2.6); Potassium 4.4 mmol/L (3.5-5.1); Sodium 141 mmol/L (136-145)
[2019-10-28 20:15] LABS: #Eosinphils 0.2 thou/uL (0.0-0.7); #Monocytes 0.5 thou/uL (0.11-0.59); #Neutrophils 4.7 thou/uL (1.40-6.50); %Basophils 0.3 % (0.0-1.0); %Eosinophils 2.5 % (0.0-10.0); %Lymphocytes 16.1 % (21.0-51.0); %Monocytes 7.4 % (0.0-10.0); %Neutrophils 73.7 % (42.0-75.0); Hemoglobin 9.9 g/dL (14.0-18.0); Mean Corpuscular HGB CONC 30.2 g/dL (32.0-36.0); Mean Corpuscular Hemoglobin 24.3 pg (27.0-31.0); Mean Corpuscular Volume 80.3 fL (78.0-98.0); Mean Platelet Volume 10.1 fL (7.4-10.4); Platelet Count 263 thou/uL (130-400); RBC Distribution Width 15.8 % (11.5-14.5); Red Blood Cell (RBC) Count 4.08 mill/uL (4.70-6.10); White Blood Cell (WBC) Count 6.4 thou/uL (4.8-10.8)
[2019-10-29] MEDS: Furosemide 100 MG/10 ML VIAL SLOW IVP SCH ×2 (05:15→15:28)
[2019-10-29 06:17] LABS: Anion Gap 12 mmol/L (10-20); BUN (Urea Nitrogen) 41 mg/dL (8.4-25.7); Calc. Creatinine Clearance 43 mL/min (70-130); Calcium 8.3 mg/dL (7.8-10.44); Carbon Dioxide 30 mmol/L (22-29); Chloride 103 mmol/L (98-107); Estimated GFR-MDRD 26; Glucose 87 mg/dL (70-105); Potassium 4.3 mmol/L (3.5-5.1); Sodium 141 mmol/L (136-145)
[2019-10-29] MEDS: hydrALAZINE 25 MG TAB PO SCH ×3 (09:24→21:50)
[2019-10-29] MEDS: Enoxaparin Sodium 30 MG/0.3 ML SYRINGE SC SCH (09:24)
[2019-10-29] MEDS: Isosorbide Dinitrate 20 MG TAB PO SCH ×3 (09:24→21:51)
[2019-10-29] MEDS: Digoxin 0.125 MG TAB PO SCH (09:24)
[2019-10-29] MEDS: Metolazone 5 MG TAB PO SCH (09:25)
[2019-10-29] MEDS ORDERED: Amlodipine 5 MG TAB PO SCH (19:00)
--- NOTE | 2019-10-29 19:49 | CT ---
CT BRAIN NONCONTRAST: DATE: 10/29/2019 HISTORY: 53-year-old male with altered mental status, confusion. COMPARISON: None FINDINGS: There is no evidence of acute intra-axial or extra-axial hemorrhage. There is no midline shift or any other mass effect. There is no extra-axial fluid collection. There is no evidence of obstructive hydrocephalus. Calvarium is intact. There is an approximately 2.5 x 1.5 cm region of low attenuation at the lateral aspect of the left cerebellar hemisphere. Somewhat large, very irregularly-shaped high density lesion in the subcutaneous fat of the occipital scalp, extending into the suboccipital p osterior upper neck. IMPRESSION: 1. Low density intra-axial lesion in the left cerebellar hemisphere. Exact etiology is uncertain. Thi s is favored to represent an area of encephalomalacia and gliosis from prior insult. However, focal area of edema cannot be excluded. Recommend MRI of the brain with and without contrast, on a nonemerg ent basis. 2. Patchy high density lesions in this superficial subcutaneous fat of the occipital scalp. This coul d represent hemorrhagic contusion or scar.
--- NOTE | 2019-10-29 21:45 | PDOC.HOSPP ---
- Subjective Encounter Date: 10/29/19 Subjective: Still has some nausea. About the same as yesterday. Breathing ok. Nurse indicates he gets p to the bathroom and stays there for 45 minutes. - Objective Vital Signs & Weight: Vital Signs (12 hours) Temp Pulse Resp BP BP Pulse Ox 10/29/19 15:21 99.0 F 99 16 176/81 H 95 10/29/19 11:50 98.8 F 105 H 16 155/70 H 95 Weight Weight 222 lb 12.8 oz I&O: 10/28/19 10/29/19 10/30/19 06:59 06:59 06:59 Intake Total 630 1458.6 720 Output Total 1175 Balance -545 1458.6 720 Result Diagrams: 10/28/19 19:08 10/29/19 05:44 Additional Labs: Accuchecks 10/29/19 10/29/19 10/29/19 20:40 16:53 06:07 POC Glucose 90 96 128 H Hospitalist ROS - Medication Medications: Active Medications Generic Name Dose Route Start Last Admin Trade Name Freq PRN Reason Stop Dose Admin Acetaminophen 650 mg 10/26/19 20:04 10/26/19 20:15 Tylenol PO 650 mg Q4H PRN Administration Headache/Fever or Pain Digoxin 0.125 mg 10/28/19 09:00 10/29/19 09:24 Lanoxin PO 0.125 mg QAM JEN Administration Enoxaparin Sodium 30 mg 10/24/19 09:00 10/29/19 09:24 Lovenox SC 30 mg 0900 JEN Administration Ferrous Sulfate 325 mg 10/24/19 21:00 10/28/19 20:43 Feosol PO 325 mg Q2D JEN Administration Furosemide 80 mg 10/26/19 06:00 10/29/19 15:28 Lasix SLOW IVP 80 mg 0600,1400 JEN Administration Hydralazine HCl 50 mg 10/26/19 15:00 10/29/19 15:29 Apresoline PO 50 mg TID JEN Administration Milrinone Lactate 20 mg/ 100 mls @ 8.17 mls/hr 10/28/19 23:15 10/29/19 08:14 Sodium Chloride IVPB 100 mls INF JEN Administration Protocol 0.25 MCG/KG/MIN Ondansetron HCl 4 mg 10/27/19 11:19 10/27/19 21:38 Zofran IVP 4 mg Q6H PRN Administration Nausea/Vomiting Sodium Chloride 10 ml 10/25/19 21:00 10/29/19 09:26 Flush - Normal Saline IVF 10 ml Q12HR JEN Administration Sodium Chloride 10 ml 10/25/19 09:41 10/26/19 05:47 Flush - Normal Saline IVF 10 ml PRN PRN Administration Saline Flush - Exam General Appearance: NAD, awake alert Heart: RRR, no murmur, no gallops, no rubs, normal peripheral pulses Heart - other findings: tachycardia Respiratory: CTAB, no wheezes, no rales, no ronchi, normal chest expansion, no tachypnea, normal percussion Gastrointestinal: soft, non-tender, non-distended, normal bowel sounds, no palpable masses, no hepatomegaly, no splenomegaly, no bruit Skin: normal turgor Musculoskeletal: normal tone Psychiatric - other findings: A little somnolent. Poor historian. Hosp A/P (1) CHF (congestive heart failure), NYHA class III Code(s): I50.9 - HEART FAILURE, UNSPECIFIED Status: Acute (2) Hypertensive emergency Code(s): I16.1 - HYPERTENSIVE EMERGENCY Status: Resolved (3) T2DM (type 2 diabetes mellitus) Status: Acute (4) Anemia of chronic disease Code(s): D63.8 - ANEMIA IN OTHER CHRONIC DISEASES CLASSIFIED ELSEWHERE Status : Acute (5) Nonischemic cardiomyopathy Code(s): I42.8 - OTHER CARDIOMYOPATHIES Status: Acute (6) Stage 3b chronic kidney disease Code(s): N18.3 - CHRONIC KIDNEY DISEASE, STAGE 3 (MODERATE) Status: Acute - Plan Acute on chronic systolic CHF: CHF due to non-compliance and non-ischemic cardiomyopathy with EF 10-15%. Still has some anasarca. Discussed with Dr. Traore and reviewed his plan for dobutamine/milrinone. HTN: Hyrdalazine and isosorbide. No ACEI in light of renal function. CKD: Renal function is stable. Appears to be CKD IIIb DM: Blood sugars controlled. No evidence of hypoglycemia. Only on SSI and not needing that. Anemia: Continue iron supplementation, but appears to be related to anemia of chronic disease given low binding capacity. Nausea: PRN Zofran. May be related to dobutamine gtt. Monitor for improvement with change to milrinone. Acute metabolic encephalopathy: Seems to be improving. Discussed with Dr. Traore. He will order CT.
[2019-10-29] MEDS: DOBUTamine 500 mg/250 ml 500 MG in Premix Bag 1 BAG IVPB SCH (21:48)
[2019-10-30 04:25] LABS: #Eosinphils 0.3 thou/uL (0.0-0.7); #Lymphocytes 1.9 thou/uL (1.20-3.40); #Monocytes 0.6 thou/uL (0.11-0.59); #Neutrophils 4.4 thou/uL (1.40-6.50); %Basophils 0.5 % (0.0-1.0); %Eosinophils 4.4 % (0.0-10.0); %Lymphocytes 25.8 % (21.0-51.0); %Monocytes 8.4 % (0.0-10.0); Hemoglobin 9.4 g/dL (14.0-18.0); Mean Corpuscular HGB CONC 30.3 g/dL (32.0-36.0); Mean Corpuscular Volume 79.3 fL (78.0-98.0); Platelet Count 248 thou/uL (130-400); RBC Distribution Width 15.5 % (11.5-14.5); Red Blood Cell (RBC) Count 3.93 mill/uL (4.70-6.10); White Blood Cell (WBC) Count 7.2 thou/uL (4.8-10.8)
[2019-10-30 04:51] LABS: ALT (SGPT) 9 U/L (8-55); AST (SGOT) 24 U/L (5-34); Albumin 2.5 g/dL (3.5-5.0); Alkaline Phosphatase 76 U/L (40-110); Anion Gap 11 mmol/L (10-20); BUN (Urea Nitrogen) 42 mg/dL (8.4-25.7); Bilirubin, Total 0.2 mg/dL (0.2-1.2); Calc. Creatinine Clearance 41 mL/min (70-130); Carbon Dioxide 30 mmol/L (22-29); Chloride 102 mmol/L (98-107); Estimated GFR-MDRD 27; Globulin 2.7 g/dL (2.4-3.5); Glucose 73 mg/dL (70-105); Magnesium 1.8 mg/dL (1.6-2.6); Protein, Total 5.2 g/dL (6.0-8.3); Sodium 139 mmol/L (136-145)
[2019-10-30] MEDS: Furosemide 100 MG/10 ML VIAL SLOW IVP SCH ×2 (05:37→14:58)
--- NOTE | 2019-10-30 06:41 | CON ---
DATE OF CONSULTATION: 10/29/2019 REASON FOR CONSULT: Management of acute on chronic heart failure. HISTORY OF PRESENT ILLNESS: Mr. Niranjan Carolina, 53-year-old gentleman with heart failure with reduced ejection fraction most likely due to nonischemic cardiomyopathy, was admitted for acute on chronic heart failure. Mr. Carolina said his heart failure started back in November 2018. He said he had a severe coughing episode and then felt very short of breath and was taken to the ER. He was seen at [facility] in [place], [place]. There, he was treated for heart failure and diuresed. He said he was discharged on carvedilol and lisinopril. He said he did well for about two months at home, then he had a heart failure exacerbation. Then he sought care at [facility]. At this point, his history becomes a bit confused. He cannot explain his hospitalization or discharge. Apparently, he was hospitalized at least 1 more time or perhaps more. Eventually he was discharged. It is believed that he cannot be left alone. Thus, he has started living with his niece in [place], [place]. Due to frequent falls and inability of the niece in handling him, he was moved from [place], [place] to [place], [place] with brother. In the meantime, he has said that he began to gain more and more weight. He became edematous in his feet, his arm, his leg, his thighs, his abdomen, even his shoulders. So when he arrived at [place], [place], he has felt very short of breath , very edematous and then he was admitted. He said he was taking his medication, but it stopped working. During this admission, dobutamine was tried. Dobutamine was stopped. Milrinone was started. He received high dose of IV Lasix. Metolazone 5 mg was added to augment the diuresis. I believe there has been significant diuresis. However, it is very difficult to quantify. The patient did not urinate into a collection. Consequently, good volume output was not truly recorded and the weight was measured in different methods and varied widely from day-to-day. PAST MEDICAL HISTORY: 1. Heart failure with reduced ejection fraction with combined diastolic and systolic dysfunction. 2. Hypertension. 3. The patient said he has type 2 diabetes, but this is uncertain. FAMILY HISTORY: His father of cancer at age 51. His mother at age 71 of cancer. He had a sister who at age 41 due to heart failure. Her name is Tayler. He had another sister who at age 60 due to heart failure. SOCIAL HISTORY: He denied ever smoking. He said that he is only occasional social drinker. He denied large or persistent alcohol use. He denied illicit drug use. He was for seven years, but then was or his left him. 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 REVIEW OF SYSTEMS: GENERAL: He is fatigued but no fever, chills, or cough. HEENT: There is no changing in vision, hearing, or swallowing. PULMONARY: Dyspnea on exertion, orthopnea, and also PND. CARDIOVASCULAR: Denied palpitations, syncope, but for rest see HPI. GI: He gets early satiety and he does not really feel like eating. : He believed he urinates without any difficulty. NEUROLOGIC: There are no focal deficits or weaknesses. INTEGUMENT: There is no skin breakdown. MUSCULOSKELETAL: There is no complaint of joint pains. PSYCHOLOGIC: He is not depressed. However, he seemed to be confused and he seemed to be confabulating at times. He makes up events when he cannot give any answer. CARDIAC MEDICATIONS: Include, 1. Enoxaparin 30 mg subcutaneous for DVT prophylaxis. 2. Digoxin 0.125 daily. 3. Milrinone currently at 0.3 mcg/kg/minute. 4. Hydralazine 50 mg three times a day. 5. Lasix 80 mg IV b.i.d. 6. Isosorbide dinitrate 20 mg t.i.d. 7. Metolazone 5 mg p.o. daily in the morning. PHYSICAL EXAMINATION: VITAL SIGNS: Heart rate 99, blood pressure 176/89. Telemetry was reviewed, is sinus and sinus tachycardia. GENERAL: He is alert and conversational, lying comfortably in bed. He can easily get up and move around. However, he seemed to be confused all the time. He cannot give a certain answer. He is always searching for an answer from his memory. HEENT: Show EOMI. PERRL. Oropharynx is benign with moist mucosa without erythema, no exudate. NECK: His JVP is very elevated all the way up beyond the earlobe. This is probably around 15 cm or higher. PULMONARY: He has bilateral basilar crackles. CARDIAC: Tachycardia with 3/6 holosystolic murmur at the apex with radiation to the left axilla. There is a good right ventricular heave. ABDOMEN: Large and distended. Positive bowel sounds. It feels like quite a bit of ascites. There is some presacral edema in his lower back. EXTREMITIES: Lower extremities, he has 3+ edema that is greater than 1 cm pitting edema from his feet all the way to his thighs and above. LABORATORY DATA: His current lab values, sodium 141, potassium 4.3, bicarb is 30, BUN at 41, creatinine 3.05, magnesium is 1.8. ASSESSMENT: 53-year-old gentleman resides in [place] Heart Association class 3B heart failure with reduced ejection fraction. By my reading of echocardiogram, it showed left ventricular inner diameter in diastole of at least 6.6 cm, so this is dilated and his left ventricular ejection fraction is only 15 % or lower. He has at least moderate mitral regurgitation. He has mildly dilated right ventricle and his right ventricle has moderate dysfunction. So consequently, he has biventricular failure. He also has both systolic and diastolic dysfunction heart failure. He suffers from cardiorenal syndrome. This is exacerbated by his hypertension which makes the heart work harder and then also has hypertensive renal disease. At this point, we need to increase his cardiac output, decrease his blood pressure to reduce overall systemic resistance, and preserve his renal function. This will take quite a while. This will be quite a long stay for these to work out and to get enough fluid off him. Please see the following for recommendations. RECOMMENDATIONS: 1. Reduce milrinone to 0.25 mcg/kg/minute IV GTT because milrinone is renally cleared, so we do not want this to become toxic. 2. Start dobutamine at 2.5 mcg/kg/minute IV GTT. This may need to be titrated up. This will work synergistically with milrinone. 3. Start Norvasc 5 mg daily, 1st dose now. This will be titrated up to 10 mg. 4. I increased isosorbide dinitrate to 30 mg three times a day. 5. Discontinue metolazone for now to preserve renal function. We want to see how well that he can sustain urine output with lower blood pressure and hopefully increase cardiac output. 6. Please do CT scan of the head, noncontrast, to see if there is an old stroke or some explanation for his encephalopathy. 7. Consider neurology consult for potential Wernicke encephalopathy. 8. Please do complete metabolic panel, magnesium, and BNP tomorrow morning. 9. Please have PT, OT to work with the patient, it will be important to mobilize the patient as much as possible. 10. Please do abdominal ultrasound to quantify amount of ascites, a potential paracentesis can relieve abdominal pressure and allow him to eat. It has been a pleasure of seeing Mr. Niranjan Carolina. If you have any questions, please give me a call. Job ID: [id number] MTDD
--- NOTE | 2019-10-30 08:21 | ULT ---
LIMITED ABDOMINAL ULTRASOUND: INDICATION: History of distended abdomen with CHs and dyspnea; STAT ultrasound to evaluate extent of the ascites. TECHNIQUE: The limited abdominal ultrasound was performed within the midline and within the upper and lower quad rants of the abdomen. Color and kaiser scale ultrasound images were submitted. FINDINGS: A small amount of fluid is seen overlying the right hepatic margin. No focal hepatic lesion is evide nt. A small amount of trace fluid is seen within the right lower quadrant and left lower quadrant. The visualized aspects of the bladder are unremarkable-appearing. Visualized aspects of the left upp er quadrant demonstrate a minimal amount of fluid. Visualized aspects of the spleen appear within no rmal limits. IMPRESSION: Minimal ascites. None of the collections are large enough for drainage. Would recommend considerati on for abdominal radiograph to evaluate extent of abdominal distention related to the patient's bowel gas. POS: [facility]
[2019-10-30] MEDS ORDERED: Amlodipine 5 MG TAB PO SCH ×2 (09:00→15:30)
[2019-10-30] MEDS: hydrALAZINE 25 MG TAB PO SCH ×3 (09:27→21:08)
[2019-10-30] MEDS: Digoxin 0.125 MG TAB PO SCH (09:27)
[2019-10-30] MEDS: Enoxaparin Sodium 30 MG/0.3 ML SYRINGE SC SCH (09:27)
[2019-10-30] MEDS: Isosorbide Dinitrate 20 MG TAB PO SCH ×3 (09:29→21:09)
[2019-10-30] MEDS: Milrinone Lactate/D5W 20 MG in Premix Bag 1 BAG IV SCH ×2 (09:34→21:07)
--- NOTE | 2019-10-30 13:16 | MRI ---
MRI BRAIN WITHOUT CONTRAST: HISTORY: Altered mental status and confusion. FINDINGS: Correlation is made with the previous day's CT scan. There is encephalomalacia in the left cerebellar hemisphere likely due to remote insult. No restrict ed diffusion is seen. No evidence of acute infarct, hemorrhage, midline shift, or abnormal extraaxia l fluid collections are noted. The ventricular size is normal and the basilar cisterns patent. Ther e is mucosal disease in the paranasal sinuses and fluid in the mastoid air cells (right greater than left). IMPRESSION: No evidence of acute intracranial process. This study was interpreted in consultation with Dr. Nolan Leonard (neuroradiologist) who concurs. POS: [facility]
--- NOTE | 2019-10-30 13:45 | PDOC.HOSPP ---
- Subjective Encounter Date: 10/30/19 Subjective: Reports persistent dizziness. Still has mild nausea, but was able to eat this morning. He also reports blurred vision that started a day prior to him coming to the hospital. - Objective Vital Signs & Weight: Vital Signs (12 hours) Temp Pulse Resp BP BP Pulse Ox 10/30/19 12:34 98.1 F 114 H 20 143/64 H 92 L 10/30/19 09:30 92 L 10/30/19 08:35 98.1 F 109 H 15 153/66 H 92 L 10/30/19 03:56 99.3 F 116 H 18 157/70 H 92 L Weight Weight 222 lb 12.8 oz I&O: 10/29/19 10/30/19 10/31/19 06:59 06:59 06:59 Intake Total 1458.6 2060.6 Output Total 1250 Balance 1458.6 810.6 Result Diagrams: 10/30/19 04:08 10/30/19 04:08 Additional Labs: Accuchecks 10/30/19 10/30/19 10/29/19 10:38 06:24 20:40 POC Glucose 106 78 90 10/29/19 16:53 POC Glucose 96 Hospitalist ROS - Medication Medications: Active Medications Generic Name Dose Route Start Last Admin Trade Name Freq PRN Reason Stop Dose Admin Acetaminophen 650 mg 10/26/19 20:04 10/26/19 20:15 Tylenol PO 650 mg Q4H PRN Administration Headache/Fever or Pain Amlodipine Besylate 5 mg 10/30/19 09:00 10/30/19 09:27 Norvasc PO 5 mg DAILY JEN Administration Digoxin 0.125 mg 10/28/19 09:00 10/30/19 09:27 Lanoxin PO 0.125 mg QAM JEN Administration Enoxaparin Sodium 30 mg 10/24/19 09:00 10/30/19 09:27 Lovenox SC 30 mg 0900 JEN Administration Ferrous Sulfate 325 mg 10/24/19 21:00 10/28/19 20:43 Feosol PO 325 mg Q2D JEN Administration Furosemide 80 mg 10/26/19 06:00 10/30/19 05:37 Lasix SLOW IVP 80 mg 0600,1400 JEN Administration Hydralazine HCl 50 mg 10/26/19 15:00 10/30/19 09:27 Apresoline PO 50 mg TID JEN Administration Dobutamine HCl/Dextrose 500 mg 250 mls @ 7.57 mls/hr 10/29/19 19:00 10/29/19 21:48 / Device IVPB 250 mls INF JEN Administration Protocol 2.5 MCG/KG/MIN Milrinone Lactate/Dextrose 20 100 mls @ 8.17 mls/hr 10/30/19 06:45 10/30/19 09:34 mg/ Device IV 100 mls INF JEN Administration Protocol 0.25 MCG/KG/MIN Isosorbide Dinitrate 30 mg 10/29/19 21:00 10/30/19 09:29 Isordil PO 30 mg TID JEN Administration Ondansetron HCl 4 mg 10/27/19 11:19 10/27/19 21:38 Zofran IVP 4 mg Q6H PRN Administration Nausea/Vomiting Sodium Chloride 10 ml 10/25/19 21:00 10/30/19 09:29 Flush - Normal Saline IVF 10 ml Q12HR JEN Administration Sodium Chloride 10 ml 10/25/19 09:41 10/26/19 05:47 Flush - Normal Saline IVF 10 ml PRN PRN Administration Saline Flush - Exam General Appearance: NAD, awake alert Heart: RRR, no gallops, no rubs, II/IV Respiratory: CTAB, no wheezes, no rales, no ronchi, normal chest expansion, no tachypnea, normal percussion Gastrointestinal: soft, non-tender, non-distended, normal bowel sounds, no palpable masses, no hepatomegaly, no splenomegaly, no bruit Extremities: 2+ LE edema Skin: normal turgor Musculoskeletal: generalized weakness Psychiatric: normal affect, normal behavior Hosp A/P (1) CHF (congestive heart failure), NYHA class III Code(s): I50.9 - HEART FAILURE, UNSPECIFIED Status: Acute (2) Hypertensive emergency Code(s): I16.1 - HYPERTENSIVE EMERGENCY Status: Resolved (3) T2DM (type 2 diabetes mellitus) Status: Acute (4) Anemia of chronic disease Code(s): D63.8 - ANEMIA IN OTHER CHRONIC DISEASES CLASSIFIED ELSEWHERE Status : Acute (5) Nonischemic cardiomyopathy Code(s): I42.8 - OTHER CARDIOMYOPATHIES Status: Acute (6) Stage 3b chronic kidney disease Code(s): N18.3 - CHRONIC KIDNEY DISEASE, STAGE 3 (MODERATE) Status: Acute (7) Nausea Code(s): R11.0 - NAUSEA Status: Acute (8) Dizziness Code(s): R42 - DIZZINESS AND GIDDINESS Status: Acute - Plan Acute on chronic systolic CHF: CHF due to non-compliance and non-ischemic cardiomyopathy with EF 10-15%. Still has some anasarca. Discussed with Dr. Traore and reviewed his plan for dobutamine/milrinone. Cardiomyopathy: Discussed with Dr. Traore. 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 HTN: Hyrdalazine and isosorbide. No ACEI in light of renal function. CKD: Renal function is stable. Appears to be CKD IIIb DM: Blood sugars controlled. No evidence of hypoglycemia. Only on SSI and not needing that. Anemia: Continue iron supplementation, but appears to be related to anemia of chronic disease given low binding capacity. Nausea: PRN Zofran. May be related to dobutamine gtt. Monitor for improvement with change to milrinone. Was able to eat today. Acute metabolic encephalopathy: Seems to be improving. Discussed with Dr. Traore. He will order CT. Visual disturbance: Blurred vision. He has central and peripheral vision intact. Says it is just blurry. Unclear etiology. Await MRI. Dizziness: May be hypoperfusion symptom. Await MRI results. May be able to treat symptomatically.
[2019-10-30] MEDS ORDERED: Meclizine HCl 12.5 MG TAB PO PRN (13:50)
[2019-10-30 15:31] LABS: #Basophils 0.1 thou/uL (0.0-0.2); #Eosinphils 0.3 thou/uL (0.0-0.7); #Lymphocytes 1.8 thou/uL (1.20-3.40); #Monocytes 0.6 thou/uL (0.11-0.59); #Neutrophils 5.2 thou/uL (1.40-6.50); %Basophils 1.1 % (0.0-1.0); %Eosinophils 3.4 % (0.0-10.0); %Lymphocytes 22.6 % (21.0-51.0); %Monocytes 7.8 % (0.0-10.0); %Neutrophils 65.1 % (42.0-75.0); Hemoglobin 10.2 g/dL (14.0-18.0); Mean Corpuscular HGB CONC 30.6 g/dL (32.0-36.0); Mean Corpuscular Hemoglobin 24.1 pg (27.0-31.0); Mean Corpuscular Volume 78.7 fL (78.0-98.0); Mean Platelet Volume 9.6 fL (7.4-10.4); Platelet Count 261 thou/uL (130-400); RBC Distribution Width 15.9 % (11.5-14.5); Red Blood Cell (RBC) Count 4.23 mill/uL (4.70-6.10)
[2019-10-30 15:48] LABS: Anion Gap 9 mmol/L (10-20); BUN (Urea Nitrogen) 41 mg/dL (8.4-25.7); Calc. Creatinine Clearance 40 mL/min (70-130); Calcium 7.8 mg/dL (7.8-10.44); Carbon Dioxide 31 mmol/L (22-29); Chloride 101 mmol/L (98-107); Estimated GFR-MDRD 27; Glucose 125 mg/dL (70-105); Magnesium 1.8 mg/dL (1.6-2.6); Sodium 137 mmol/L (136-145)
[2019-10-30] MEDS ORDERED: Aspirin Chewable 81 MG TAB PO SCH (16:00)
--- NOTE | 2019-10-30 16:28 | CON ---
DATE OF CONSULTATION: 10/30/2019 CONSULTING PHYSICIAN: Hospitalist Service. IMPRESSION: 1. Dizziness, which most likely is peripheral in origin. 2. Monocular vision decline on the right of uncertain etiology. 3. Severe congestive heart failure. 4. 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 PLAN: 1. Aspirin 325 mg per day. 2. Digoxin level, B1 and B2 levels. HISTORY OF PRESENT ILLNESS: Mr. Carolina is a 53-year-old gentleman, who was admitted with congestive heart failure and fluid overload. He had some sideline complaints of some intermittent dizziness. This occurs in certain positions and can be a bit nauseating, and it lasts for brief intervals of time. It is not associated with any other focal symptoms or headache. For the last 2 weeks, he has noted that the vision in the right eye is a bit blurry than it had been. He has had some minor memory difficulty superimposed on this as well. He had a CT scan of the brain done on admission, which was unremarkable other than a chronic area of encephalomalacia in the left cerebellum. He had a followup MRI due to someone is concerned for Wernicke encephalopathy. There was no evidence of abnormal signal in the basal ganglia. His MRI was otherwise completely normal. B12 level was 312. His blood pressures have been reasonable since admission. He is being diuresed. He denies any past history of any focal neurologic events. PAST HISTORY: Congestive heart failure. ALLERGIES: IODINE AND LISINOPRIL. SOCIAL HISTORY: No tobacco or alcohol use. FAMILY HISTORY: Noncontributory. REVIEW OF SYSTEMS: Ten-system review of systems is otherwise negative. PHYSICAL EXAMINATION: VITAL SIGNS: Blood pressure 143/64, pulse 114, respirations 20, and temperature 98.1. HEENT: Pupils equal. Conjunctivae clear. No nystagmus was present. Oropharynx clear. NECK: Supple. No lymphadenopathy. EXTREMITIES: Edematous. NEUROLOGIC: He is alert and appropriate. His speech is fluent and clear. He follows commands appropriately. Cranial nerves were intact. Motor exam shows equal strength bilaterally. He reportedly has some gait instability due to some generalized weakness. No abnormal movements were seen. LABORATORY STUDIES: White blood cell count 6.6, hemoglobin 9.9. Electrolytes showed a BUN of 42 and creatinine 3.02. Urinalysis showed some proteinuria. Imaging was reviewed. SUMMARY: A 53-year-old man with multiple ongoing complaints. MRI of his brain looks remarkably good. I do not see any central cause for his ongoing complaints. Make sure that his digoxin level is not toxic. I will follow up with him tomorrow. Job ID: [id number]
--- NOTE | 2019-10-30 16:38 | PRG ---
DATE OF SERVICE: 10/30/[address] Liam Traore, from [facility]. SUBJECTIVE: Mr. Carolina had a good day. He said he has increased energy level. He said that he is not as groggy today. He is able to concentrate and remember much better. Today, he can tell me that he was with his first for 15 years and he his second for 5 years and she tried to come and visit him last night. He believed he really thinking a lot more clearly. He said he can see the fluid is coming off the arms, today was the first time in several days that he is able to eat. He was glad that he is able to eat. REVIEW OF SYSTEMS: GENERAL: No fever or chills, or productive cough. Please see HPI. HEENT: He said he cannot see out of his right eye. However, there is no lesions found either on the CT scan and MRI. There is no changing in hearing or swallowing. PULMONARY: He is breathing well. Please see HPI. CARDIOVASCULAR: He denies palpitations or syncope. His heart rate about 110. GI: Please see HPI. : He is urinating well. NEUROLOGIC: There is no focal weaknesses or deficits, the exception is unable to see out of the right eye. INTEGUMENT: There is no breakdown. MUSCULOSKELETAL: There are no complaints of joint pains. PSYCHIATRIC: He is in better mood today. CARDIAC MEDICATIONS: Include: 1. Dobutamine currently at 2.5 mcg/kg/minute. 2. Digoxin is 0.125 mg. 3. Milrinone 0.25 mcg/kg/minute. 4. Amlodipine at 5 mg daily. 5. Hydralazine 50 mg three times a day. 6. Lasix 80 mg twice a day. 7. Isosorbide dinitrate 30 mg three times a day. PHYSICAL EXAMINATION: VITAL SIGNS: His vitals are heart rate 114 and blood pressure 143/64, this actually averaging better than a day ago. He is nonfebrile. His weight decreased from 222 pounds yesterday down to 218 pounds today. GENERAL: He is alert and conversational. His mind is much sharper today. He converses easily. He is able to focus today. This is a dramatic improvement from yesterday. HEENT: EOMI. Oropharynx benign with moist mucosa. NECK: JVP still about 13 cm higher. PULMONARY: Good air movement bilaterally. There are slight bibasilar crackles. HEART: Tachycardic, but regular rhythm. 2/6 holosystolic murmur at apex, radiation to the left axilla. ABDOMEN: Soft, nontender, and mildly distended. There is no presacral edema, but adipose tissue. EXTREMITIES: Lower extremity, he has 3+. There is greater than 1 cm pitting edema from the feet all the way to above his thighs. LABORATORY DATA: His lab values include sodium 139, potassium 4, BUN of 42, and creatinine is 3.02. His BNP is 1258.6. This is a great decrease from his admission, which was 3444. ASSESSMENT: A 53-year-old gentleman resides in [place] Heart Association class 3B heart failure with reduced ejection fraction. He has proven that he needs combination of dobutamine plus milrinone to provide sufficient cardiac output. The dobutamine binds to beta one receptor, which downstream causes increase in cyclic AMP. Milrinone prevents the cyclic AMP from being degraded. Consequently, these two medication will works well synergistically together. The increase cardiac output provided better brain perfusion. This is the reason why he is more clear minded today. However, CT and MRI suggests that he may had an event in the in the left cerebrum. So, he could had an old stroke. Even though he improved, he is still suffering from cardiorenal syndrome, so he needs a bit more cardiac output. His blood pressure did decrease nicely to decrease overall systemic resistance; however, he is still not quite there. Ideally, it is a decrease systolic blood pressure to 120. This will need to be done slowly over time. It is a very gratifying that he have 4 pounds of diuresis in one day, so we are going at right direction, however, you will take a long time to get most of fluid off him. Please see the following for recommendations. RECOMMENDATIONS: 1. Increase dobutamine to 4 mcg/kg/minute. 2. Keep the milrinone at 0.25 mcg/kg/minute. 3. Increase amlodipine to 10 mg daily. 4. Decrease hydralazine to 25 mg three times a day. 5. In the future, we might be able to titrate off hydralazine and convert three times a day isosorbide dinitrate to isosorbide mononitrate. 6. 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 7. We will also contact Lionel Hardy and also Lionel Crespo'estephania about this patient. He could be one of their patients. It has been a pleasure taking care of Mr. Carolina, if you have any questions, please give me a call. Job ID: [id number] MTDD
[2019-10-30 16:51] LABS: Digoxin 0.56 ng/mL (0.8-2.0)
[2019-10-30 17:44] LABS: Bacteria/HPF None Seen HPF (None Seen); Bilirubin Negative (Negative); Blood, Urine Negative (Negative); Clarity Clear (Clear); Glucose, Urine (Dipstick) Normal (Negative); Leukocyte Negative Leu/uL (Negative); Nitrite Negative (Negative); Protein, Urine (Dipstick) 100 mg/dL (Neg-Trace); RBC/HPF 0-3 HPF (0-3); Squamous Epithelial None Seen HPF (0-3); Urobilinogen Normal mg/dL (Less than 2); WBC/HPF 0-3 HPF (0-3)
[2019-10-30] MEDS: Ferrous Sulfate 325 MG TAB PO SCH (21:09)
[2019-10-31] MEDS: Furosemide 100 MG/10 ML VIAL SLOW IVP SCH ×2 (05:32→14:24)
[2019-10-31] MEDS: hydrALAZINE 25 MG TAB PO SCH ×3 (05:32→20:59)
[2019-10-31 06:10] LABS: Anion Gap 11 mmol/L (10-20); BUN (Urea Nitrogen) 41 mg/dL (8.4-25.7); Calc. Creatinine Clearance 42 mL/min (70-130); Calcium 7.9 mg/dL (7.8-10.44); Carbon Dioxide 32 mmol/L (22-29); Chloride 99 mmol/L (98-107); Estimated GFR-MDRD 28; Glucose 78 mg/dL (70-105); Magnesium 1.8 mg/dL (1.6-2.6); Potassium 3.7 mmol/L (3.5-5.1); Sodium 138 mmol/L (136-145)
[2019-10-31] MEDS ORDERED: GoLYTELY 4,000 ml Bottle PO SCH (08:15)
[2019-10-31] MEDS: Amlodipine 10 MG TAB PO SCH (09:01)
[2019-10-31] MEDS: Digoxin 0.125 MG TAB PO SCH (09:02)
[2019-10-31] MEDS: Isosorbide Dinitrate 20 MG TAB PO SCH ×3 (09:02→20:04)
[2019-10-31] MEDS: Aspirin Chewable 81 MG TAB PO SCH (09:02)
[2019-10-31] MEDS: Enoxaparin Sodium 30 MG/0.3 ML SYRINGE SC SCH (09:02)
[2019-10-31] MEDS: Milrinone Lactate/D5W 20 MG in Premix Bag 1 BAG IV SCH (11:24)
--- NOTE | 2019-10-31 15:05 | PDOC.HOSPP ---
- Subjective Encounter Date: 10/31/19 Subjective: Feeling much better. No nausea today at all. - Objective Vital Signs & Weight: Vital Signs (12 hours) Temp Pulse Pulse Pulse Resp BP BP 10/31/19 11:33 99.0 F 108 H 18 10/31/19 10:16 114 H 116 H 162/70 H 10/31/19 07:25 10/31/19 07:20 98.2 F 112 H 18 10/31/19 05:32 118 H 190/86 H 10/31/19 03:51 98.6 F 118 H 20 BP BP Pulse Ox 10/31/19 11:33 172/72 H 94 L 10/31/19 10:16 141/60 H 10/31/19 07:25 93 L 10/31/19 07:20 195/81 H 93 L 10/31/19 05:32 10/31/19 03:51 104/51 L 90 L Weight Admit Weight 250 lb Weight 221 lb 6.4 oz I&O: 10/30/19 10/31/19 11/01/19 06:59 06:59 06:59 Intake Total 2060.6 2165.6 Output Total 1250 1150 Balance 810.6 1015.6 Result Diagrams: 10/30/19 15:21 10/31/19 05:03 Additional Labs: Accuchecks 10/31/19 10/31/19 10/30/19 11:09 05:51 20:21 POC Glucose 108 83 106 10/30/19 16:51 POC Glucose 125 H Hospitalist ROS - Medication Medications: Active Medications Generic Name Dose Route Start Last Admin Trade Name Barronq PRN Reason Stop Dose Admin Acetaminophen 650 mg 10/26/19 20:04 10/26/19 20:15 Tylenol PO 650 mg Q4H PRN Administration Headache/Fever or Pain Amlodipine Besylate 10 mg 10/31/19 09:00 10/31/19 09:01 Norvasc PO 10 mg DAILY JEN Administration Aspirin 81 mg 10/31/19 09:00 10/31/19 09:02 Aspirin Chewable PO 81 mg DAILY JEN Administration Digoxin 0.125 mg 10/28/19 09:00 10/31/19 09:02 Lanoxin PO 0.125 mg QAM JEN Administration Enoxaparin Sodium 30 mg 10/24/19 09:00 10/31/19 09:02 Lovenox SC 30 mg 0900 JEN Administration Ferrous Sulfate 325 mg 10/24/19 21:00 10/30/19 21:09 Feosol PO 325 mg Q2D JEN Administration Furosemide 80 mg 10/26/19 06:00 10/31/19 14:24 Lasix SLOW IVP 80 mg 0600,1400 JEN Administration Hydralazine HCl 25 mg 10/30/19 22:00 10/31/19 14:25 Apresoline PO 25 mg Q8HR JEN Administration Dobutamine HCl/Dextrose 500 mg 250 mls @ 12.12 mls/hr 10/29/19 19:00 21:48 / Device IVPB 250 mls INF JEN Administration Protocol 4 MCG/KG/MIN Milrinone Lactate/Dextrose 20 100 mls @ 8.17 mls/hr 10/30/19 06:45 10/31/19 11:24 mg/ Device IV 100 mls INF JEN Administration Protocol 0.25 MCG/KG/MIN Isosorbide Dinitrate 30 mg 10/29/19 21:00 10/31/19 14:24 Isordil PO 30 mg TID JEN Administration Ondansetron HCl 4 mg 10/27/19 11:19 10/27/19 21:38 Zofran IVP 4 mg Q6H PRN Administration Nausea/Vomiting Sodium Chloride 10 ml 10/25/19 21:00 10/31/19 09:03 Flush - Normal Saline IVF 10 ml Q12HR JEN Administration Sodium Chloride 10 ml 10/25/19 09:41 10/26/19 05:47 Flush - Normal Saline IVF 10 ml PRN PRN Administration Saline Flush - Exam General Appearance: NAD, awake alert Heart: RRR, no murmur, no rubs, II/IV Respiratory: CTAB, no wheezes, no rales, no ronchi, normal chest expansion, no tachypnea, normal percussion Gastrointestinal: soft, non-tender, non-distended, normal bowel sounds, no palpable masses, no hepatomegaly, no splenomegaly, no bruit Extremities: 2+ LE edema Skin: normal turgor Musculoskeletal: generalized weakness Psychiatric: normal affect, normal behavior, A&O x 3 Hosp A/P (1) CHF (congestive heart failure), NYHA class III Code(s): I50.9 - HEART FAILURE, UNSPECIFIED Status: Acute (2) Hypertensive emergency Code(s): I16.1 - HYPERTENSIVE EMERGENCY Status: Resolved (3) T2DM (type 2 diabetes mellitus) Status: Acute (4) Anemia of chronic disease Code(s): D63.8 - ANEMIA IN OTHER CHRONIC DISEASES CLASSIFIED ELSEWHERE Status : Acute (5) Nonischemic cardiomyopathy Code(s): I42.8 - OTHER CARDIOMYOPATHIES Status: Acute (6) Stage 3b chronic kidney disease Code(s): N18.3 - CHRONIC KIDNEY DISEASE, STAGE 3 (MODERATE) Status: Acute (7) Nausea Code(s): R11.0 - NAUSEA Status: Acute (8) Dizziness Code(s): R42 - DIZZINESS AND GIDDINESS Status: Acute - Plan Acute on chronic systolic CHF: CHF due to non-compliance and non-ischemic cardiomyopathy with EF 10-15%. Still has some anasarca. Discussed with Dr. Traore and reviewed his plan for dobutamine/milrinone. Seems much improved. Weight coming down. Cardiomyopathy: Discussed with Dr. Traore. 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 HTN: Hyrdalazine and isosorbide. No ACEI in light of renal function. CKD: Renal function is stable. Appears to be CKD IIIb DM: Blood sugars controlled. No evidence of hypoglycemia. Only on SSI and not needing that. Anemia: Continue iron supplementation, but appears to be related to anemia of chronic disease given low binding capacity. Nausea: PRN Zofran. Basically resolved today. Acute metabolic encephalopathy: MRI negative. Much improved. Visual disturbance: Blurred vision. Reassess as his encephalopathy has improved. Dizziness: May be hypoperfusion symptom. Much improved.
--- NOTE | 2019-10-31 17:33 | PRG ---
DATE OF SERVICE: 10/31/2019 REASON FOR CONSULTATION: Iron-deficiency anemia. SUBJECTIVE: The patient states that he has been feeling much better with the diuresis with approximately 4-pound weight loss yesterday alone. He adds that the swelling in both his abdomen and his lower extremities has increased significantly as well. However, he does continue to have edema in those regions. Otherwise, he states he is doing well with no complaints of nausea, vomiting, fevers, chills, hematemesis, melena, hematochezia, dysphagia, or odynophagia. OBJECTIVE: VITAL SIGNS: Temperature 99, pulse 111, blood pressure 164/74, respiratory rate 18, saturating 93% on 1 L nasal cannula. GENERAL: The patient was lying in bed, in no acute distress. Alert and oriented x4. CARDIOVASCULAR: Tachycardic rate but regular rhythm. RESPIRATORY: Diminished breath sounds in the bilateral lower lung [place], but clear to auscultation otherwise, poor inspiratory effort. ABDOMEN: Normoactive bowel sounds. Soft. Mild abdominal distention with thickened skin in the lower abdominal quadrants consistent with anasarca. Only mild tenderness to palpation in the right lower quadrant and left lower quadrant. EXTREMITIES: 2+ bilateral lower extremity edema extending to the knees on both sides. LABORATORY DATA: Chemistry with a sodium of 138, potassium 3.7, chloride 99, CO2 of 32, BUN 41, creatinine 2.89, glucose 78. IMAGING DATA: No current GI imaging is available for review. ASSESSMENT AND PLAN: The patient is a 53-year-old male with past medical history of diabetes, hypertension, and congestive heart failure, presenting with an acute on chronic exacerbation of congestive heart failure in addition to a mixed anemia type picture. Anemia. The patient initially presented with complaints of increased shortness of breath and dyspnea on exertion and was noted to have an acute exacerbation of his chronic congestive heart failure in addition to a mild anemia. Based on characterization of this anemia, it is more of a mixed type picture between iron-deficiency anemia and anemia of chronic disease, characterized as a low iron, low ferritin, but low TIBC. With the possibility of iron-deficiency anemia either from chronic GI blood loss or underlying GI malignancy, endoscopic evaluation would normally be advised. However, during the course of this hospitalization, his H and H has remained relatively stable, making the possibility of active GI bleeding much less and evaluation for possible colorectal cancer is not indicated at this time due to the concurrent existence of COVID-19 virus (per surgical/anesthesia service recommendations). At this time, like I said EGD and colonoscopy would normally will be recommended, but at this point, I would continue to monitor his anemia with no endoscopic intervention planned at this time secondary to COVID-19 virus. RECOMMENDATIONS: 1. Would continue to trend his H and H and transfuse as necessary to maintain an H and H of 7/21. 2. Continue to monitor clinically for signs of active GI bleeding. 3. Continue with optimization of his cardiac status. 4. We would hold on both upper and lower endoscopy, given the low likelihood of active GI bleeding and low priority of screening for colorectal neoplasm in this patient secondary to the existence of COVID-19 virus. 5. Air-contrast barium enema could be considered in this patient for screening for colorectal cancer given the possibility of colorectal cancer causing an iron deficiency anemia, but given the NONEMERGENT nature of this screening, this can be held for approximately 30 days secondary to radiological recommendations at this time secondary to COVID-19 virus. However, anemia workup would be considered URGENT once radiology/endoscopy restrictions are lifted. We will sign off at this time. Please call with any questions. Job ID: [id number] [facility]ITAL[facility]ayetano
[2019-10-31] MEDS ORDERED: Carvedilol 6.25 MG TAB PO SCH (18:45)
[2019-10-31] MEDS ORDERED: AcetaZOLAMIDE 250 MG TAB PO SCH (19:15)
[2019-10-31] MEDS ORDERED: Magnesium Oxide 400 MG TAB PO SCH (19:15)
--- NOTE | 2019-10-31 20:11 | PRG ---
DATE OF SERVICE: 10/31/2019 SERVICE: [facility]. SUBJECTIVE: Mr. Niranjan Carolina overall had an excellent day, but started a bit poorly. Apparently he has sleep apnea. Oxygen saturation decreased drastically. He had a variable blood pressure going from lowest at 102 to high at 192. At 192, occurred was oxygen desaturation as reported by the nursing staff. After oxygen was put on, his blood pressure came down throughout the day. Otherwise, Mr. Carolina said he had an excellent day. He said that he is more sharper today. He is able to listen to people, chart picker things, and remember events much better. He also said he felt energetic enough, where he actually walked down the [place] to the nurses station and beyond and then came back to his room. This is the farthest he had walked in a very long time. He felt energetic and able to eat. He believes that more fluid is coming off because he said he can feel it coming off. REVIEW OF SYSTEMS: GENERAL: More energetic, breathing easier today. HEENT: There are no changes in vision, hearing, or swallowing. PULMONARY: Please see HPI. CARDIOVASCULAR: He said that sometimes he can feel palpitations, but there is no syncope. GI: He is able to eat well. : He said he is urinating just fine. 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 MUSCULOSKELETAL: There is no complaint of joint pains. INTEGUMENT: Please see HPI. He notes that his arms now are not edematous anymore. His leg still has edema, but then he believes that it is coming off. MEDICATIONS: His active cardiac medications include: 1. Aspirin 81 mg daily. 2. Dobutamine at 4 mcg/kg daily. 3. Digoxin 0.125 mg daily. 4. Milrinone 0.25 mcg/kg daily. 5. Amlodipine 10 mg daily. 6. Hydralazine 25 mg q.8 hours. 7. Lasix 80 mg IV b.i.d. 8. Isosorbide dinitrate 30 mg t.i.d. OBJECTIVE: GENERAL: His telemetry has been review. He has sinus tachycardia. There are no concerning arrhythmias. VITAL SIGNS: His current vitals are heart rate 102, blood pressure 148/67. GENERAL: He is alert and conversational, sitting up comfortably in bed. He is talking well. He is not short of breath. He is able to sustain long sentences. His mind is much more focused than 2 days ago. It is an improvement from yesterday. He is able to stand up and walk around easily. This is a big change from 3 days ago. HEENT: Show EOMI. His oropharynx is benign with moist mucosa. There is no erythema. No exudate. NECK: The JVP is still elevated, at least 14 cm, just at the earlobe. PULMONARY: With good air movement bilaterally; however, he still has some bibasilar crackles. CARDIAC: Tachycardic, regular rhythm, he has a loud 2/6 holosystolic murmur at the apex with radiation to the left axilla. ABDOMEN: Large, soft, and nontender. Positive bowel sounds. EXTREMITIES: His lower extremity has 3+ edema. There is greater than 1 cm indention from his feet all the way to his thighs; however, overall, his lower extremity is much looser now, so his fluid is definitely coming off. Nurse and I stood him up. On standing weight again, he is weighing 215 pounds today, so this is a 3-pound decrease from yesterday. So, in 3 days, he went from 222 pounds down to 218 pounds, now down to 215 pounds. LABORATORY VALUES: Sodium 138, potassium 3.7, chloride 99, bicarbonate 32, BUN 41, and creatinine at 2.89. This is a small improvement from yesterday. His magnesium is 1.8. ASSESSMENT: 53-year-old gentleman, resides in [place] Heart Association class IIIB heart failure with reduced ejection fraction. Combination of dobutamine and milrinone has provided enough cardiac output to sustain diuresis. 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 He also has poorly controlled hypertension. In relation to his oxygen saturation, he most likely has sleep apnea. His blood pressure goes up when he goes apneic. He continues to be volume overloaded; however, he did have effective diuresis with 3-pound weight loss. We will need to continue to work on getting his blood pressure under better control. However, with his huge wide range of 102 to 192 and 90 to 142, I will have to proceed on with discontinuing his blood pressure carefully, so we do not inadvertently drop the blood pressure too much. As mentioned before, he will need a long diuresis. I did investigate his prior hospitalization. He was admitted to [facility] for heart failure last year. He was never seen in [facility]. [facility] or [facility] has not seen him either. Please see the following for my recommendations. RECOMMENDATIONS: 1. Add carvedilol at 6.25 mg p.o. q.12 hours. Dose to reduce the blood pressure some more and provide some mild control of his heart rate. 2. Start acetazolamide 250 mg daily. This is to help with his volume contraction alkalosis. 3. Ask the patient to wear oxygen when he goes asleep. Ideally, he would need CPAP, however, was told by nursing staff that he will not wear such a thing. 4. Tomorrow, I will likely to increase hydralazine back to 50 mg q.8 hours again ; however, I want to see how his blood pressure responds to the current regimen with oxygen and carvedilol. 5. Please ask the nursing staff to make sure a good standing weight is done every day and record his standing weight in the computerized system. His bed weight is unreliable. Since he does not urinate into the container, it is impossible to get a good urine output on him. Thus, at least standing weight is the only reliable measure of his progress. It has been a pleasure taking care of Mr. Ramirez. If you have any questions, please give me a call. Job ID: [id number] MTDD
[2019-11-01] MEDS: Milrinone Lactate/D5W 20 MG in Premix Bag 1 BAG IV SCH ×2 (00:50→14:40)
[2019-11-01] MEDS: DOBUTamine 500 mg/250 ml 500 MG in Premix Bag 1 BAG IVPB SCH (02:39)
[2019-11-01 05:01] LABS: Digoxin 0.51 ng/mL (0.8-2.0)
[2019-11-01] MEDS: hydrALAZINE 25 MG TAB PO SCH ×3 (06:11→20:58)
[2019-11-01] MEDS: Furosemide 100 MG/10 ML VIAL SLOW IVP SCH ×2 (06:11→14:41)
[2019-11-01] MEDS: Digoxin 0.125 MG TAB PO SCH (08:34)
[2019-11-01] MEDS: Carvedilol 6.25 MG TAB PO SCH ×2 (08:34→20:59)
[2019-11-01] MEDS: Amlodipine 10 MG TAB PO SCH (08:36)
[2019-11-01] MEDS: Isosorbide Dinitrate 20 MG TAB PO SCH ×3 (08:37→20:56)
[2019-11-01] MEDS: Magnesium Oxide 400 MG TAB PO SCH ×2 (08:37→20:59)
[2019-11-01] MEDS: Aspirin Chewable 81 MG TAB PO SCH (08:38)
[2019-11-01] MEDS: AcetaZOLAMIDE 250 MG TAB PO SCH (08:38)
[2019-11-01] MEDS: Enoxaparin Sodium 30 MG/0.3 ML SYRINGE SC SCH (08:39)
--- NOTE | 2019-11-01 20:25 | PRG ---
DATE OF SERVICE: 11/01/2019 SERVICE: This is from [facility]. SUBJECTIVE: Mr. Carolina had a variable day. The nurse says that he was active in a day and talked a lot. The nurses also said he has gone up and down to the bathroom and ate well without difficulty. However, when I saw him this early evening, who is quite sleepy, he will answer question, but much more difficult to arouse. For some reason, there was no labs drawn this morning, so this is more difficult to make a judgment. CURRENT MEDICATIONS: Include: 1. Dobutamine at 4 mcg/kg/min. 2. Milrinone at 0.25 mcg/kg/min. 3. Carvedilol 6.25 mg twice a day. 4. Acetazolamide 250 mg daily. 5. Digoxin at 0.125 mg daily. 6. Amlodipine at 10 mg daily. 7. Hydralazine at 25 mg q.8 hours. 8. Isosorbide dinitrate 30 mg three times a day. 9. Aspirin 81 mg daily. 10. Lasix 80 mg IV twice a day. OBJECTIVE: VITAL SIGNS: Telemetry was reviewed. His heart rates generally is slower today at average rate about 93. It is ranged between 90s to 100s. There is sinus rhythm, sinus tachycardia. There are no concerning rhythms. His systolic blood pressures ranges quite a bit. He ranged between 110 to 170. At the time of examination, his blood pressure is 110/60. GENERAL: He is sleepy and difficult to arouse, but he will open his eyes and answer question correctly. HEENT: EOMI and oropharynx benign with moist mucosa. NECK: JVP is still very elevated at least 14 cm close to the earlobe. LUNGS: Good air movement bilaterally. There is still bibasilar crackles more prominent on the right. CARDIAC: Tachycardic. Regular rhythm. S1 and S2 and a 3/6 holosystolic murmur at the apex with radiation to the left axilla. ABDOMEN: Soft and nontender. Positive bowel sounds. EXTREMITIES: His lower extremities have 3+ pitting edema. There is greater than 1 cm pitting from his feet all the way to his upper thighs. However, it is much looser. His standing weight today is 211. This is another 4-pound weight decrease from yesterday. ASSESSMENT: A 53-year-old gentleman resides in [place] Heart Association class 3B heart failure with reduced ejection fraction. Combination of dobutamine and Milrinone provided sufficient cardiac output to sustain diuresis. He has continued to lose weight, losing another 4 pounds quite gratifying. His blood pressure still goes to well fluctuations, between 110 to 170. We will need to figure out what causes this fluctuation, we will need to reduce it even possible - low dose carvedilol seemed to help with heart rate quite a bit. Without labs, it is uncertain if there are any improvement or worsening of renal function, so this needs to be checked tomorrow. Please see the following for recommendations. RECOMMENDATIONS: 1. Continue with the current cardiac regimen for now. I will not make any change until the lab value comes back. 2. Please ensure there is a BMP, BNP, and magnesium done early in the morning and also every day. With the laboratory values in hand and much more wakeful person tomorrow, they will make further medication adjustments as needed. 3. Please continue to do standing weight daily, this is the most accurate way to quantify his volume status. It has been a pleasure taking care of Mr. Carolina. If you have any questions, please give me a call. Job ID: [id number] MTDD
[2019-11-01] MEDS: Ferrous Sulfate 325 MG TAB PO SCH (20:58)
[2019-11-02] MEDS: DOBUTamine 500 mg/250 ml 500 MG in Premix Bag 1 BAG IVPB SCH (02:02)
[2019-11-02] MEDS: Milrinone Lactate/D5W 20 MG in Premix Bag 1 BAG IV SCH ×2 (03:22→16:42)
[2019-11-02 04:24] LABS: #Eosinphils 0.3 thou/uL (0.0-0.7); #Lymphocytes 1.7 thou/uL (1.20-3.40); #Monocytes 0.6 thou/uL (0.11-0.59); %Basophils 0.4 % (0.0-1.0); %Eosinophils 3.9 % (0.0-10.0); %Lymphocytes 19.3 % (21.0-51.0); %Monocytes 7.2 % (0.0-10.0); %Neutrophils 69.2 % (42.0-75.0); Hemoglobin 9.8 g/dL (14.0-18.0); Mean Corpuscular HGB CONC 30.3 g/dL (32.0-36.0); Mean Corpuscular Hemoglobin 23.9 pg (27.0-31.0); Mean Corpuscular Volume 78.7 fL (78.0-98.0); Mean Platelet Volume 10.8 fL (7.4-10.4); Platelet Count 242 thou/uL (130-400); Red Blood Cell (RBC) Count 4.12 mill/uL (4.70-6.10); White Blood Cell (WBC) Count 8.6 thou/uL (4.8-10.8)
[2019-11-02 04:29] LABS: Anion Gap 16 mmol/L (10-20); BUN (Urea Nitrogen) 39 mg/dL (8.4-25.7); Calc. Creatinine Clearance 44 mL/min (70-130); Calcium 7.7 mg/dL (7.8-10.44); Carbon Dioxide 26 mmol/L (22-29); Chloride 98 mmol/L (98-107); Estimated GFR-MDRD 31; Glucose 99 mg/dL (70-105); Magnesium 1.8 mg/dL (1.6-2.6); Potassium 3.9 mmol/L (3.5-5.1); Sodium 136 mmol/L (136-145)
[2019-11-02] MEDS: hydrALAZINE 25 MG TAB PO SCH ×3 (05:33→21:08)
[2019-11-02] MEDS: Furosemide 100 MG/10 ML VIAL SLOW IVP SCH ×2 (05:33→14:41)
--- NOTE | 2019-11-02 09:18 | PDOC.HOSPP ---
- Subjective Encounter Date: 11/01/19 Encounter Time: 10:00 Subjective: pt up in bed does not feel well today. - Objective Vital Signs & Weight: Vital Signs (12 hours) Temp Pulse Resp BP Pulse Ox 11/02/19 07:26 98.1 F 90 18 175/76 H 96 11/02/19 05:33 92 11/02/19 03:59 98.2 F 90 16 163/74 H 95 11/02/19 00:10 98.4 F 84 14 135/60 95 Weight Admit Weight 250 lb Weight 201 lb 11.2 oz I&O: 11/01/19 11/02/19 11/03/19 06:59 06:59 06:59 Intake Total 2074 1868.6 Output Total 4500 2800 Balance -4756 -931.4 Result Diagrams: 11/02/19 03:40 11/02/19 03:40 Additional Labs: Accuchecks 11/02/19 11/01/19 11/01/19 05:52 20:36 16:45 POC Glucose 99 102 139 H 11/01/19 10:40 POC Glucose 104 Hospitalist ROS - Review of Systems Cardiovascular: denies: chest pain, palpitations, orthopnea, paroxysmal noc. dyspnea, edema, light headedness, other Gastrointestinal: denies: nausea, vomiting, abdominal pain, diarrhea, constipation, melena, hematochezia, other Genitourinary: denies: dysuria, frequency, incontinence, hematuria, retention, other - Medication Medications: Active Medications Generic Name Dose Route Start Last Admin Trade Name Freq PRN Reason Stop Dose Admin Acetaminophen 650 mg 10/26/19 20:04 10/26/19 20:15 Tylenol PO 650 mg Q4H PRN Administration Headache/Fever or Pain Acetazolamide 250 mg 11/01/19 09:00 11/01/19 08:38 Diamox PO 250 mg DAILY JEN Administration Amlodipine Besylate 10 mg 10/31/19 09:00 11/01/19 08:36 Norvasc PO 10 mg DAILY JEN Administration Aspirin 81 mg 10/31/19 09:00 11/01/19 08:38 Aspirin Chewable PO 81 mg DAILY JEN Administration Carvedilol 6.25 mg 11/01/19 09:00 11/01/19 20:59 Coreg PO 6.25 mg BID JEN Administration Digoxin 0.125 mg 10/28/19 09:00 11/01/19 08:34 Lanoxin PO 0.125 mg QAM JEN Administration Enoxaparin Sodium 30 mg 10/24/19 09:00 11/01/19 08:39 Lovenox SC 30 mg 0900 JEN Administration Ferrous Sulfate 325 mg 10/24/19 21:00 11/01/19 20:58 Feosol PO 325 mg Q2D JEN Administration Furosemide 80 mg 10/26/19 06:00 11/02/19 05:33 Lasix SLOW IVP 80 mg 0600,1400 JEN Administration Hydralazine HCl 25 mg 10/30/19 22:00 11/02/19 05:33 Apresoline PO 25 mg Q8HR JEN Administration Dobutamine HCl/Dextrose 500 mg 250 mls @ 12.12 mls/hr 10/29/19 19:00 02:02 / Device IVPB 250 mls INF JEN Administration Protocol 4 MCG/KG/MIN Milrinone Lactate/Dextrose 20 100 mls @ 8.17 mls/hr 10/30/19 06:45 11/02/19 03:22 mg/ Device IV 100 mls INF JEN Administration Protocol 0.25 MCG/KG/MIN Isosorbide Dinitrate 30 mg 10/29/19 21:00 11/01/19 20:56 Isordil PO 30 mg TID JEN Administration Magnesium Oxide 400 mg 11/01/19 09:00 11/01/19 20:59 Magnesium Oxide PO 400 mg BID JEN Administration Ondansetron HCl 4 mg 10/27/19 11:19 10/27/19 21:38 Zofran IVP 4 mg Q6H PRN Administration Nausea/Vomiting Sodium Chloride 10 ml 10/25/19 21:00 11/01/19 21:07 Flush - Normal Saline IVF Not Given Q12HR JEN Sodium Chloride 10 ml 10/25/19 09:41 10/26/19 05:47 Flush - Normal Saline IVF 10 ml PRN PRN Administration Saline Flush - Exam Neck: negative: supple, symmetric, no JVD, no thyromegaly, no lymphadenopathy, no carotid bruit, JVD Heart: negative: RRR, no murmur, no gallops, no rubs, normal peripheral pulses, irregular, diminshed peripheral pulses, murmur present, II/IV, III/IV Respiratory: negative: CTAB, no wheezes, no rales, no ronchi, normal chest expansion, no tachypnea, normal percussion, rales, rhonchi, tachypneic, wheezes Gastrointestinal: negative: soft, non-tender, non-distended, normal bowel sounds , no palpable masses, no hepatomegaly, no splenomegaly, no bruit, no guarding, no rigidity, tender to palpation, distended, diminished bowl sounds, voluntary guarding Extremities: 2+ LE edema Hosp A/P (1) CHF (congestive heart failure), NYHA class III Code(s): I50.9 - HEART FAILURE, UNSPECIFIED Status: Acute (2) Nonischemic cardiomyopathy Code(s): I42.8 - OTHER CARDIOMYOPATHIES Status: Acute (3) Stage 3b chronic kidney disease Code(s): N18.3 - CHRONIC KIDNEY DISEASE, STAGE 3 (MODERATE) Status: Acute (4) T2DM (type 2 diabetes mellitus) Status: Acute - Plan will follow along creatinine, He is on milronine and dobutamine. pt has been loosing weight. will continue current diuretics. will monitor electrolytes. hydrazine dose has been increased due to elevated bp.
[2019-11-02] MEDS: AcetaZOLAMIDE 250 MG TAB PO SCH (09:30)
[2019-11-02] MEDS: Amlodipine 10 MG TAB PO SCH (09:30)
[2019-11-02] MEDS: Carvedilol 6.25 MG TAB PO SCH ×2 (09:31→20:36)
[2019-11-02] MEDS: Isosorbide Dinitrate 20 MG TAB PO SCH ×3 (09:31→20:36)
[2019-11-02] MEDS: Digoxin 0.125 MG TAB PO SCH (09:31)
[2019-11-02] MEDS: Aspirin Chewable 81 MG TAB PO SCH (09:31)
[2019-11-02] MEDS: Magnesium Oxide 400 MG TAB PO SCH ×2 (09:31→20:36)
[2019-11-02] MEDS: Enoxaparin Sodium 30 MG/0.3 ML SYRINGE SC SCH (09:32)
[2019-11-02] MEDS ORDERED: Potassium Chloride 10 MEQ TAB PO SCH (12:00)
[2019-11-02] MEDS ORDERED: Calcium Gluconate 4.6 MEQ in Sodium Chloride 0.9% 100 ML IVPB SCH (12:00)
--- NOTE | 2019-11-02 12:20 | PRG ---
DATE OF SERVICE: 11/02/2019 SUBJECTIVE: Mr. Carolina had an excellent morning. He was able to eat breakfast well. He was able to ambulate down the hallway completely and he come back on his own. He does not need any assistance. He was able to take a shower by himself. He felt energetic. He is still sleeps at about 60 degree incline, but he does not have any PND. There is no syncope. He still has some sensation of palpitation, but otherwise he is doing well. He believe that he is still losing a lot of fluid weight. Any previous swelling is going down. REVIEW OF SYSTEMS: GENERAL: There is no fever or chills, or productive cough. HEENT: No change in vision, hearing or swallowing. PULMONARY: Please see HPI. CARDIOVASCULAR: Please see history of PI. GI: He is eating well. : No problem with urination. NEUROLOGIC: There are no focal deficits. No weakness. MUSCULOSKELETAL: There are no complaints of joint pains. INTEGUMENT: There is no complaints of skin breakdown or rashes. MEDICATIONS: His cardiac medications include: 1. Dobutamine currently at 4 mcg/kg/min. 2. Carvedilol 6.25 mg b.i.d. 3. Acetazolamide 250 mg daily. 4. Digoxin 0.125 daily. 5. Milrinone 0.25 mcg/kg daily. 6. Amlodipine 10 mg daily. 7. Hydralazine 25 mg q.8 hours. 8. Lasix 80 mg IV twice a day.\. 9. Isosorbide dinitrate 30 mg t.i.d. 10. Aspirin 81 mg daily. PHYSICAL EXAMINATION: Telemetry was reviewed. It is mainly sinus with rate about 90, which is good for him. PHYSICAL EXAMINATION: VITAL SIGNS: Heart rate 92, blood pressure 143/67. His standing weight is 201 pounds today. This is a nearly 10-pound decrease from yesterday. GENERAL: Very energetic and conversational today. He is sitting comfortably in bed. HEENT: Show EOMI. Oropharynx benign with moist mucosa. There is no erythema, no exudate. NECK: JVP is still high about 14 cm or higher near the earlobe. PULMONARY: Good air movement in upper lung [place]. There are bilateral crackles at bilateral bases. CARDIAC: Regular rate and rhythm. S1, S2. There is a 2/6 holosystolic murmur at the apex with radiation to the left axilla. ABDOMEN: Large, soft, nontender. EXTREMITIES: Lower extremity has greater than 1 cm pitting edema that is 3+ from his feet to his upper thigh. However, his skin in the volume is much looser, so there seemed to be quite a bit of fluid coming off. LABORATORY VALUES: This morning, sodium 136, potassium 3.9, chloride 98, BUN 39 and creatinine at 2.68. This is an improvement. ASSESSMENT: 53-year-old gentleman resides in [place] Heart Association class 4 heart failure with reduced ejection fraction. 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 He also has [id number] hypertension. He has significantly improved. Even though he is still volume overloaded, he has achieved quite a bit of effective diuresis. He lost about 10 pounds again. His renal function improved. Combination of dobutamine and Milrinone has provided sufficient cardiac output to improve his renal function despite heavy diuresis. This is his best creatinine yet. His blood pressure continue to be high. We will intensify his blood pressure regimen. The overall aim is to use dobutamine and Milrinone combination to sustain cardiac outputs to diurese him to the point of finding a good dry weight, then we will find an oral diuretics and try to wean off the two drips. RECOMMENDATIONS: 1. Continue with the current inotropic drips. 2. Increase hydralazine to 50 mg q.8 hours. 3. Please add potassium chloride 10 mEq daily, 1st dose now. He is starting to lose his potassium. 4. Please add magnesium oxide 400 mg twice a day. 5. He also has low calcium. Please give him a calcium gluconate 1 g IV. 6. Please give him supplemental calcium with vitamin D. 7. Please ensure patient has oxygen on every day. 8. Please continue to have the patient to have standup weights. It has been a pleasure taking care of Mr. [place]. Please call me if you have any questions. Job ID: [id number] [facility]
--- NOTE | 2019-11-02 16:25 | PDOC.HOSPP ---
- Subjective Encounter Date: 11/02/19 Encounter Time: 11:15 Subjective: pt up in bed feels much better today. He walked and took a shower today. - Objective Vital Signs & Weight: Vital Signs (12 hours) Temp Pulse Resp BP Pulse Ox 11/02/19 15:42 98.1 F 98 12 144/66 H 97 11/02/19 11:16 98.1 F 95 17 149/68 H 97 11/02/19 07:26 98.1 F 90 18 175/76 H 96 11/02/19 05:33 92 Weight Admit Weight 250 lb Weight 201 lb 11.2 oz I&O: 11/01/19 11/02/19 11/03/19 06:59 06:59 06:59 Intake Total 2074 1868.6 Output Total 4500 2800 Balance -7846 931.4 Result Diagrams: 11/02/19 03:40 11/02/19 03:40 Additional Labs: Accuchecks 11/02/19 11/02/19 11/01/19 10:54 05:52 20:36 POC Glucose 127 H 99 102 11/01/19 16:45 POC Glucose 139 H Hospitalist ROS - Review of Systems Cardiovascular: denies: chest pain, palpitations, orthopnea, paroxysmal noc. dyspnea, edema, light headedness, other Gastrointestinal: denies: nausea, vomiting, abdominal pain, diarrhea, constipation, melena, hematochezia, other Genitourinary: denies: dysuria, frequency, incontinence, hematuria, retention, other - Medication Medications: Active Medications Generic Name Dose Route Start Last Admin Trade Name Barronq PRN Reason Stop Dose Admin Acetaminophen 650 mg 10/26/19 20:04 10/26/19 20:15 Tylenol PO 650 mg Q4H PRN Administration Headache/Fever or Pain Acetazolamide 250 mg 11/01/19 09:00 11/02/19 09:30 Diamox PO 250 mg DAILY JEN Administration Amlodipine Besylate 10 mg 10/31/19 09:00 11/02/19 09:30 Norvasc PO 10 mg DAILY JEN Administration Aspirin 81 mg 10/31/19 09:00 11/02/19 09:31 Aspirin Chewable PO 81 mg DAILY JEN Administration Carvedilol 6.25 mg 11/01/19 09:00 11/02/19 09:31 Coreg PO 6.25 mg BID JEN Administration Digoxin 0.125 mg 10/28/19 09:00 11/02/19 09:31 Lanoxin PO 0.125 mg QAM JEN Administration Enoxaparin Sodium 30 mg 10/24/19 09:00 11/02/19 09:32 Lovenox SC 30 mg 0900 JEN Administration Ferrous Sulfate 325 mg 10/24/19 21:00 11/01/19 20:58 Feosol PO 325 mg Q2D JEN Administration Furosemide 80 mg 10/26/19 06:00 11/02/19 14:41 Lasix SLOW IVP 80 mg 0600,1400 JEN Administration Hydralazine HCl 50 mg 11/02/19 14:00 11/02/19 14:42 Apresoline PO 50 mg Q8HR JEN Administration Dobutamine HCl/Dextrose 500 mg 250 mls @ 12.12 mls/hr 10/29/19 19:00 02:02 / Device IVPB 250 mls INF JEN Administration Protocol 4 MCG/KG/MIN Milrinone Lactate/Dextrose 20 100 mls @ 8.17 mls/hr 10/30/19 06:45 11/02/19 03:22 mg/ Device IV 100 mls INF JEN Administration Protocol 0.25 MCG/KG/MIN Isosorbide Dinitrate 30 mg 10/29/19 21:00 11/02/19 14:41 Isordil PO 30 mg TID JEN Administration Magnesium Oxide 400 mg 11/01/19 09:00 11/02/19 09:31 Magnesium Oxide PO 400 mg BID JEN Administration Ondansetron HCl 4 mg 10/27/19 11:19 10/27/19 21:38 Zofran IVP 4 mg Q6H PRN Administration Nausea/Vomiting Sodium Chloride 10 ml 10/25/19 21:00 11/02/19 09:32 Flush - Normal Saline IVF 10 ml Q12HR JEN Administration Sodium Chloride 10 ml 10/25/19 09:41 10/26/19 05:47 Flush - Normal Saline IVF 10 ml PRN PRN Administration Saline Flush - Exam Neck: negative: supple, symmetric, no JVD, no thyromegaly, no lymphadenopathy, no carotid bruit, JVD Heart: negative: RRR, no murmur, no gallops, no rubs, normal peripheral pulses, irregular, diminshed peripheral pulses, murmur present, II/IV, III/IV Respiratory: negative: CTAB, no wheezes, no rales, no ronchi, normal chest expansion, no tachypnea, normal percussion, rales, rhonchi, tachypneic, wheezes Gastrointestinal: negative: soft, non-tender, non-distended, normal bowel sounds , no palpable masses, no hepatomegaly, no splenomegaly, no bruit, no guarding, no rigidity, tender to palpation, distended, diminished bowl sounds, voluntary guarding Extremities: 2+ LE edema Hosp A/P (1) CHF (congestive heart failure), NYHA class III Code(s): I50.9 - HEART FAILURE, UNSPECIFIED Status: Acute (2) Nonischemic cardiomyopathy Code(s): I42.8 - OTHER CARDIOMYOPATHIES Status: Acute (3) Stage 3b chronic kidney disease Code(s): N18.3 - CHRONIC KIDNEY DISEASE, STAGE 3 (MODERATE) Status: Acute (4) T2DM (type 2 diabetes mellitus) Status: Acute - Plan will follow along creatinine, He is on milronine and dobutamine. pt has been loosing weight. will continue current diuretics. will monitor electrolytes. hydrazine dose has been increased due to elevated bp. 11/01 pt's weight today was 201. continue current meds milronine and dobutamine.
[2019-11-03] MEDS: DOBUTamine 500 mg/250 ml 500 MG in Premix Bag 1 BAG IVPB SCH ×2 (01:27→23:26)
[2019-11-03] MEDS: hydrALAZINE 25 MG TAB PO SCH ×2 (06:11→21:18)
[2019-11-03] MEDS: Furosemide 100 MG/10 ML VIAL SLOW IVP SCH (06:13)
[2019-11-03] MEDS: Milrinone Lactate/D5W 20 MG in Premix Bag 1 BAG IV SCH ×2 (06:27→19:26)
[2019-11-03] MEDS: Isosorbide Dinitrate 20 MG TAB PO SCH ×3 (07:56→21:17)
[2019-11-03] MEDS: Digoxin 0.125 MG TAB PO SCH (07:57)
[2019-11-03] MEDS: Amlodipine 10 MG TAB PO SCH (07:57)
[2019-11-03] MEDS: Magnesium Oxide 400 MG TAB PO SCH ×2 (07:58→21:16)
[2019-11-03] MEDS: Carvedilol 6.25 MG TAB PO SCH ×2 (07:58→21:19)
[2019-11-03] MEDS: Aspirin Chewable 81 MG TAB PO SCH (07:58)
[2019-11-03] MEDS: AcetaZOLAMIDE 250 MG TAB PO SCH ×2 (07:58→21:19)
[2019-11-03] MEDS: Enoxaparin Sodium 30 MG/0.3 ML SYRINGE SC SCH (07:59)
[2019-11-03] MEDS ORDERED: Potassium Chloride 10 MEQ TAB PO SCH (09:00)
[2019-11-03 10:50] LABS: Anion Gap 11 mmol/L (10-20); BUN (Urea Nitrogen) 41 mg/dL (8.4-25.7); Calc. Creatinine Clearance 40 mL/min (70-130); Calcium 7.8 mg/dL (7.8-10.44); Carbon Dioxide 33 mmol/L (22-29); Chloride 97 mmol/L (98-107); Estimated GFR-MDRD 30; Glucose 137 mg/dL (70-105); Magnesium 1.7 mg/dL (1.6-2.6); Potassium 3.9 mmol/L (3.5-5.1); Sodium 137 mmol/L (136-145)
--- NOTE | 2019-11-03 12:09 | PDOC.HOSPP ---
- Subjective Encounter Date: 11/03/19 Encounter Time: 10:00 Subjective: Pt up in bed no complains. He stated that he got up yesterday to the chair. - Objective Vital Signs & Weight: Vital Signs (12 hours) Temp Pulse Resp BP BP BP Pulse Ox 11/03/19 11:15 98.3 F 91 18 122/54 L 95 11/03/19 07:58 188/81 H 11/03/19 07:57 87 188/81 H 11/03/19 07:15 97.4 F L 87 16 188/81 H 98 11/03/19 06:11 92 161/65 H 11/03/19 04:00 98.6 F 92 20 162/71 H Weight Admit Weight 250 lb Weight 195 lb 8 oz I&O: 11/02/19 11/03/19 11/04/19 06:59 06:59 06:59 Intake Total 1868.6 1551.0 Output Total 2800 4600 Balance -931.4 -3049.0 Result Diagrams: 11/02/19 03:40 11/03/19 10:24 Additional Labs: Accuchecks 11/03/19 11/03/19 11/02/19 10:42 06:06 20:52 POC Glucose 156 H 111 H 161 H 11/02/19 17:39 POC Glucose 135 H Hospitalist ROS - Review of Systems Gastrointestinal: denies: nausea, vomiting, abdominal pain, diarrhea, constipation, melena, hematochezia, other Genitourinary: denies: dysuria, frequency, incontinence, hematuria, retention, other - Medication Medications: Active Medications Generic Name Dose Route Start Last Admin Trade Name Sebastian PRN Reason Stop Dose Admin Acetaminophen 650 mg 10/26/19 20:04 10/26/19 20:15 Tylenol PO 650 mg Q4H PRN Administration Headache/Fever or Pain Acetazolamide 250 mg 11/01/19 09:00 11/03/19 07:58 Diamox PO 250 mg DAILY JEN Administration Amlodipine Besylate 10 mg 10/31/19 09:00 11/03/19 07:57 Norvasc PO 10 mg DAILY JEN Administration Aspirin 81 mg 10/31/19 09:00 11/03/19 07:58 Aspirin Chewable PO 81 mg DAILY JEN Administration Carvedilol 6.25 mg 11/01/19 09:00 11/03/19 07:58 Coreg PO 6.25 mg BID JEN Administration Digoxin 0.125 mg 10/28/19 09:00 11/03/19 07:57 Lanoxin PO 0.125 mg QAM JEN Administration Enoxaparin Sodium 30 mg 10/24/19 09:00 11/03/19 07:59 Lovenox SC 30 mg 0900 JEN Administration Ferrous Sulfate 325 mg 10/24/19 21:00 11/01/19 20:58 Feosol PO 325 mg Q2D JEN Administration Furosemide 80 mg 10/26/19 06:00 11/03/19 06:13 Lasix SLOW IVP 80 mg 0600,1400 JEN Administration Dobutamine HCl/Dextrose 500 mg 250 mls @ 12.12 mls/hr 10/29/19 19:00 01:27 / Device IVPB 250 mls INF JEN Administration Protocol 4 MCG/KG/MIN Milrinone Lactate/Dextrose 20 100 mls @ 8.17 mls/hr 10/30/19 06:45 11/03/19 06:27 mg/ Device IV 100 mls INF JEN Administration Protocol 0.25 MCG/KG/MIN Isosorbide Dinitrate 30 mg 10/29/19 21:00 11/03/19 07:56 Isordil PO 30 mg TID JEN Administration Magnesium Oxide 400 mg 11/02/19 21:00 11/03/19 07:58 Magnesium Oxide PO 400 mg BID JEN Administration Ondansetron HCl 4 mg 10/27/19 11:19 10/27/19 21:38 Zofran IVP 4 mg Q6H PRN Administration Nausea/Vomiting Potassium Chloride 10 meq 11/03/19 09:00 11/03/19 08:02 Klor-Con 10 PO 10 meq DAILY JEN Administration Sodium Chloride 10 ml 10/25/19 21:00 11/03/19 07:59 Flush - Normal Saline IVF 10 ml Q12HR JEN Administration Sodium Chloride 10 ml 10/25/19 09:41 11/03/19 06:13 Flush - Normal Saline IVF 10 ml PRN PRN Administration Saline Flush - Exam Neck: negative: supple, symmetric, no JVD, no thyromegaly, no lymphadenopathy, no carotid bruit, JVD Heart: negative: RRR, no murmur, no gallops, no rubs, normal peripheral pulses, irregular, diminshed peripheral pulses, murmur present, II/IV, III/IV Respiratory: rales Gastrointestinal: negative: soft, non-tender, non-distended, normal bowel sounds , no palpable masses, no hepatomegaly, no splenomegaly, no bruit, no guarding, no rigidity, tender to palpation, distended, diminished bowl sounds, voluntary guarding Extremities: no edema, 1+ LE edema, 2+ LE edema, clubbing. negative: no cyanosis, no clubbing Hosp A/P (1) CHF (congestive heart failure), NYHA class III Code(s): I50.9 - HEART FAILURE, UNSPECIFIED Status: Acute (2) Nonischemic cardiomyopathy Code(s): I42.8 - OTHER CARDIOMYOPATHIES Status: Acute (3) Stage 3b chronic kidney disease Code(s): N18.3 - CHRONIC KIDNEY DISEASE, STAGE 3 (MODERATE) Status: Acute (4) T2DM (type 2 diabetes mellitus) Status: Acute - Plan will follow along creatinine, He is on milronine and dobutamine. pt has been loosing weight. will continue current diuretics. will monitor electrolytes. hydrazine dose has been increased due to elevated bp. 11/01 pt's weight today was 201. continue current meds milronine and dobutamine. 11/02 pt's creatinine is worsening, his bnp has improved. He has lost a lot of weight his current weight is 195lbs. will discuss with HF to back off the lasix for now to avoid overdiuresis.
--- NOTE | 2019-11-03 13:17 | PRG ---
DATE OF SERVICE: 11/03/2019 CONSULTING SERVICE: Advanced Heart Failure Cardiology. SUBJECTIVE: Mr. Carolina had a good day. He was able to walk down the [place] and come back. This has increased in walking distance. He said he was not short of breath with that. He is able to eat well. He has continued to have a large volume of urine output. He feels like that the fluid is coming off his legs well now. His states that legs are now much softer. He had a good night of sleep and did not have any troubles. He did have a high blood pressure this morning about 188, but then with morning medications is steady and coming down. REVIEW OF SYSTEMS: GENERAL: There is no fever or chills or productive cough. 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 PULMONARY: See HPI. CARDIOVASCULAR: There is no palpitations or syncope. No chest pains. GI: He is eating well. : He is able to urinate well. NEUROLOGIC: There are no focal deficits or weaknesses. MUSCULOSKELETAL: There is no joint pain. He says he can see his knees now. INTEGUMENT: There are no new skin breakdowns. MEDICATIONS: His current cardiac medications include: 1. Dobutamine at 4 mcg/kg/minute. 2. Milrinone at 0.25 mcg/kg/minute. 3. Carvedilol at 6.25 mg b.i.d. 4. Acetazolamide 250 mg daily. 5. Digoxin at 0.125 mg daily. 6. Amlodipine at 10 mg daily. 7. Hydralazine at 50 mg q.8 hours, but it is increased to 75 mg q.8 hours. 8. Lasix 80 mg IV b.i.d. 9. Also isosorbide dinitrate 30 mg p.o. t.i.d. 10. Aspirin 81 mg daily. 11. Also potassium chloride 10 mEq daily. OBJECTIVE: Telemetry is reviewed. He is in sinus rhythm. There is a PVC. There are no concerning arrhythmias. CURRENT VITAL SIGNS: Heart rate 94, blood pressure 122/84. GENERAL: He is alert and conversational, sitting comfortable in a chair. He can talk in long sentences without being short of breath and looking energetic. HEENT: Show EOMI. Oropharynx benign without erythema. No exudate. NECK: JVP is at least 13 cm. PULMONARY: There is good air movement bilateral. He still has bibasilar crackles, but less so than in the previous. HEART: Regular rate and rhythm with 2/6 holosystolic murmur at the apex with radiation to the left axilla. ABDOMEN: Large, soft, nontender. Positive bowel sounds. There is no presacral edema. EXTREMITIES: He still has 3+ pitting edema that is greater than 1 cm pitting edema from his feet to his upper thighs. However, overall his leg diameter has strength quite a bit at both sides and also below the knee. Standing weight was done once again. Mr. [place] has lost another 6 pounds going from 201 pounds down to 195 pounds today. LABORATORY VALUES: Sodium 137, potassium 3.9, bicarb at 33, BUN 41, creatinine at 2.72, and his BNP is now 613. This is a great decrease since the 3444 at admission. ASSESSMENT: 53-year-old gentleman resides in [place] Heart Association class 4 heart failure with reduced ejection fraction. He has both systolic and diastolic dysfunctions. He currently depends on combination of dobutamine and milrinone to support enough cardiac output to provide sufficient diuresis. He is still very much volume overloaded. He has suffered from cardiorenal syndrome. Now, he also have contraction alkalosis. His creatinine bumped a little bit with another 6 pounds per day weight loss and perhaps there is too much urine output that we will need to slow down his diuresis for time being to allow the kidneys to recover. Furthermore, with improving renal function, he will also need higher doses of milrinone because it is renally cleared. His blood pressure, I think, he needs a better control. I agree with increase of hydralazine to 75 mg q.8 hours, however, be careful to make sure that he does drop his blood pressure too much that would also cause kidney injury. Please see the following recommendations. RECOMMENDATIONS: 1. Increase milrinone to 0.3 mcg/kg/minute IV GTT. 2. Decrease frequency of Lasix 80 mg IV to just once a day for now. We want to slow down the diuresis to allow better renal perfusion for now. 3. Increase acetazolamide 250 mg to twice a day to combat the contraction alkalosis. This will also augment diuresis. 4. Agree with hydralazine 75 mg q.8 hours. However, must not drop his blood pressure below 100. He will need this to perfuse kidneys. 5. Please continue to do daily standing weights. This is providing an excellent way to quantify his diuretic effect. 6. It will take a long time to give most fluid off once. We would need to find a way to titrate off the inotrope once a good dry weight is reached. 7. Please assist in bringing out what insurance that he has because at this point finding sufficient coverage for his outpatient medication will be a nichols for successful discharge. However, the discharge still will not take place any time soon. It has been a pleasure taking care of Mr. Niranjan [place]. If you have any questions, please give me a call. Job ID: [id number] [facility]
[2019-11-03] MEDS ORDERED: hydrALAZINE 25 MG TAB PO SCH ×2 (14:00→15:30)
[2019-11-03] MEDS: Potassium Chloride 10 MEQ TAB PO SCH (16:55)
[2019-11-03] MEDS: Insulin Regular 300 UNITS/3 ML VIAL SC PRN (16:56)
[2019-11-03] MEDS: Ferrous Sulfate 325 MG TAB PO SCH (21:16)
[2019-11-04] MEDS: hydrALAZINE 25 MG TAB PO SCH ×3 (05:44→21:16)
[2019-11-04] MEDS: Potassium Chloride 10 MEQ TAB PO SCH ×2 (09:13→16:45)
[2019-11-04] MEDS: AcetaZOLAMIDE 250 MG TAB PO SCH ×2 (09:14→20:35)
[2019-11-04] MEDS: Carvedilol 6.25 MG TAB PO SCH ×2 (09:14→20:34)
[2019-11-04] MEDS: Aspirin Chewable 81 MG TAB PO SCH (09:14)
[2019-11-04] MEDS: Amlodipine 10 MG TAB PO SCH (09:14)
[2019-11-04] MEDS: Furosemide 100 MG/10 ML VIAL SLOW IVP SCH (09:15)
[2019-11-04] MEDS: Digoxin 0.125 MG TAB PO SCH (09:15)
[2019-11-04] MEDS: Enoxaparin Sodium 30 MG/0.3 ML SYRINGE SC SCH (09:15)
[2019-11-04] MEDS: Isosorbide Dinitrate 20 MG TAB PO SCH ×3 (09:16→20:34)
[2019-11-04] MEDS: Magnesium Oxide 400 MG TAB PO SCH ×2 (09:16→20:34)
[2019-11-04] MEDS: Milrinone Lactate/D5W 20 MG in Premix Bag 1 BAG IV SCH ×2 (09:17→22:09)
[2019-11-04 09:52] LABS: Anion Gap 10 mmol/L (10-20); BUN (Urea Nitrogen) 45 mg/dL (8.4-25.7); Calc. Creatinine Clearance 40 mL/min (70-130); Calcium 7.9 mg/dL (7.8-10.44); Carbon Dioxide 31 mmol/L (22-29); Chloride 100 mmol/L (98-107); Estimated GFR-MDRD 30; Glucose 136 mg/dL (70-105); Magnesium 1.9 mg/dL (1.6-2.6); Potassium 4.3 mmol/L (3.5-5.1); Sodium 137 mmol/L (136-145)
--- NOTE | 2019-11-04 12:57 | PRG ---
DATE OF SERVICE: 11/04/2019 SUBJECTIVE: Mr. Niranjan Carolnia continued to improve physically. He is able to walk a longer distance all the way to beyond the [place] and back. However, he still requires a walker. He believes his leg is getting smaller too. He had a good night sleep. REVIEW OF SYSTEMS: GENERAL: A little better energy level. There is no fever or chills. No productive cough. HEENT: There is no change in vision, hearing, or swallowing. PULMONARY: Breathing easier. CARDIOVASCULAR: There is no palpitation, syncope, or chest pains. GI: He complains of taking pills causing bowel movement. This is most likely due to magnesium. He said that happens about twice a day. : There is no problem with urination. NEUROLOGIC: There are no focal deficits or weaknesses. MUSCULOSKELETAL: There is no complaint of joint pains, but he likes that he can see his knees again. INTEGUMENT: There are no reports of new skin breakdown or rashes. MEDICATIONS: His cardiac medications include: 1. Magnesium oxide 800 mg twice a day. 2. Dobutamine currently at 4 mcg/kg/minute. 3. Carvedilol 6.25 mg twice a day. 4. Acetazolamide 250 mg twice a day. 5. Digoxin 0.125 mg daily. 6. Milrinone 0.3 mcg/kg daily. 7. Amlodipine 10 mg daily. 8. Hydralazine 75 mg q.8 hours. 9. Lasix 80 mg IV once daily. 10. Isosorbide dinitrate 30 mg 3 times a day. 11. Aspirin 81 mg daily. PHYSICAL EXAMINATION: VITAL SIGNS: Heart rate 86, blood pressure 158/67. His I's and O's are negative at 1.2 L. He has another 2 pounds decreased from 195 down to 193 pounds. TELEMETRY: His telemetry was reviewed. He has sinus rhythm. There are no concerning arrhythmias. GENERAL: He is alert and conversational, sitting comfortably in bed, energetic, able to carry on long conversation without being short of breath. HEENT: Show EOMI. Oropharynx is benign without erythema, no exudate, with moist mucosa. NECK: JVP is a little bit lower, but still high about 15 cm. PULMONARY: He has bilateral basilar crackles still. CARDIAC: Regular rate and rhythm. S1 and S2. There is 3/6 holosystolic murmur at the apex with radiation to the left axilla. ABDOMEN: Soft, distended, and nontender. Positive bowel sounds. EXTREMITIES: There is 3+ pitting edema, that is greater than 1 cm pitting from feet to knees, but in his knees, he can see it. His thigh edema has decreased and is about + now in the thighs, and it does not go up all the way to his thighs. LABORATORY DATA: His laboratory value shows sodium is 137, potassium is 4.3, bicarb is 31, BUN is 45, and creatinine is 2.73 which is stable from yesterday. His BNP has dropped some more down to 492.6. ASSESSMENT: A 53-year-old gentleman, resides in [place] Heart Association class IV heart failure with reduced ejection fraction. This non- ischemic dilated cardiomyopathy. He has combined systolic and diastolic dysfunctions. He has reached the plateau with current dobutamine and milrinone regimen. So, we would need to increase his cardiac output a bit more to sustain diuresis. He is still volume overloaded as seen by elevated JVP and lower extremity edema. His creatinine also needed to be improved. Please see the following for detailed recommendations. RECOMMENDATIONS: 1. Increase dobutamine to 5 mcg/kg/minute. 2. Use 100 kg as the weight to dose both dobutamine and milrinone. 3. Increase hydralazine to 100 mg q.8 hours. 4. Continue to collect daily standing weight. This has been excellent in terms quantifying his diuresis. It has been a pleasure taking care of Mr. [place]. If you have any questions, please give me a call. Job ID: [id number] [facility]
--- NOTE | 2019-11-04 14:05 | PDOC.HOSPP ---
- Subjective Encounter Date: 11/04/19 Encounter Time: 11:15 Subjective: pt up walking with PT. He complains of blurry vision from his right eye. - Objective Vital Signs & Weight: Vital Signs (12 hours) Temp Pulse Pulse Pulse Resp BP BP 11/04/19 11:39 98.0 F 86 17 11/04/19 10:39 89 90 143/62 H 11/04/19 07:47 98.2 F 88 16 11/04/19 05:44 89 161/66 H 11/04/19 03:15 97.8 F 93 20 BP BP BP Pulse Ox 11/04/19 11:39 158/67 H 96 11/04/19 10:39 155/70 H 11/04/19 07:47 168/70 H 96 11/04/19 05:44 11/04/19 03:15 159/70 H 96 Weight Admit Weight 250 lb Weight 193 lb 14.4 oz I&O: 11/03/19 11/04/19 11/05/19 06:59 06:59 06:59 Intake Total 1551.0 1801 Output Total 4600 3075 Balance -3049.0 -1274 Result Diagrams: 11/02/19 03:40 11/04/19 09:24 Additional Labs: Accuchecks 11/04/19 11/04/19 11/03/19 10:38 05:21 20:13 POC Glucose 145 H 120 H 119 H 11/03/19 16:40 POC Glucose 172 H Hospitalist ROS - Review of Systems Eyes: reports: vision change Cardiovascular: denies: chest pain, palpitations, orthopnea, paroxysmal noc. dyspnea, edema, light headedness, other Gastrointestinal: denies: nausea, vomiting, abdominal pain, diarrhea, constipation, melena, hematochezia, other Genitourinary: denies: dysuria, frequency, incontinence, hematuria, retention, other - Medication Medications: Active Medications Generic Name Dose Route Start Last Admin Trade Name Freq PRN Reason Stop Dose Admin Acetaminophen 650 mg 10/26/19 20:04 10/26/19 20:15 Tylenol PO 650 mg Q4H PRN Administration Headache/Fever or Pain Acetazolamide 250 mg 11/03/19 21:00 11/04/19 09:14 Diamox PO 11/05/19 21:01 250 mg BID JEN Administration Amlodipine Besylate 10 mg 10/31/19 09:00 11/04/19 09:14 Norvasc PO 10 mg DAILY JEN Administration Aspirin 81 mg 10/31/19 09:00 11/04/19 09:14 Aspirin Chewable PO 81 mg DAILY JEN Administration Carvedilol 6.25 mg 11/01/19 09:00 11/04/19 09:14 Coreg PO 6.25 mg BID JEN Administration Digoxin 0.125 mg 10/28/19 09:00 11/04/19 09:15 Lanoxin PO 0.125 mg QAM JEN Administration Enoxaparin Sodium 30 mg 10/24/19 09:00 11/04/19 09:15 Lovenox SC 30 mg 0900 JEN Administration Ferrous Sulfate 325 mg 10/24/19 21:00 11/03/19 21:16 Feosol PO 325 mg Q2D JEN Administration Furosemide 80 mg 11/04/19 09:00 11/04/19 09:15 Lasix SLOW IVP 80 mg DAILY JEN Administration Dobutamine HCl/Dextrose 500 mg 250 mls @ 15.15 mls/hr 10/29/19 19:00 23:26 / Device IVPB 250 mls INF JEN Administration Protocol 5 MCG/KG/MIN Milrinone Lactate/Dextrose 20 100 mls @ 7.98 mls/hr 11/03/19 12:45 11/04/19 09:17 mg/ Device IV 100 mls INF JEN Administration Protocol 0.3 MCG/KG/MIN Insulin Human Regular 0 units 10/23/19 16:10 11/03/19 16:56 Humulin R SC 2 unit .MILD SLIDING SCALE PRN Administration Mild Correctional Scale Isosorbide Dinitrate 30 mg 10/29/19 21:00 11/04/19 09:16 Isordil PO 30 mg TID JEN Administration Magnesium Oxide 800 mg 11/03/19 21:00 11/04/19 09:16 Magnesium Oxide PO 800 mg BID JEN Administration Ondansetron HCl 4 mg 10/27/19 11:19 10/27/19 21:38 Zofran IVP 4 mg Q6H PRN Administration Nausea/Vomiting Potassium Chloride 10 meq 11/03/19 17:00 11/04/19 09:13 Klor-Con 10 PO 10 meq BID-WM JEN Administration Sodium Chloride 10 ml 10/25/19 21:00 11/04/19 09:53 Flush - Normal Saline IVF 10 ml Q12HR JEN Administration Sodium Chloride 10 ml 10/25/19 09:41 11/03/19 06:13 Flush - Normal Saline IVF 10 ml PRN PRN Administration Saline Flush - Exam Eye: PERRL, anicteric sclera Heart: negative: RRR, no murmur, no gallops, no rubs, normal peripheral pulses, irregular, diminshed peripheral pulses, murmur present, II/IV, III/IV Respiratory - other findings: decrease breath sounds to bases Gastrointestinal: negative: soft, non-tender, non-distended, normal bowel sounds , no palpable masses, no hepatomegaly, no splenomegaly, no bruit, no guarding, no rigidity, tender to palpation, distended, diminished bowl sounds, voluntary guarding Extremities: 2+ LE edema Hosp A/P (1) CHF (congestive heart failure), NYHA class III Code(s): I50.9 - HEART FAILURE, UNSPECIFIED Status: Acute (2) Nonischemic cardiomyopathy Code(s): I42.8 - OTHER CARDIOMYOPATHIES Status: Acute (3) Stage 3b chronic kidney disease Code(s): N18.3 - CHRONIC KIDNEY DISEASE, STAGE 3 (MODERATE) Status: Acute (4) T2DM (type 2 diabetes mellitus) Status: Acute - Plan will follow along creatinine, He is on milronine and dobutamine. pt has been loosing weight. will continue current diuretics. will monitor electrolytes. hydrazine dose has been increased due to elevated bp. 11/01 pt's weight today was 201. continue current meds milronine and dobutamine. 11/02 pt's creatinine is worsening, his bnp has improved. He has lost a lot of weight his current weight is 195lbs. will discuss with HF to back off the lasix for now to avoid overdiuresis. 11/03 pt's bp meds have been increased. His lasix has been decreased. creatinine still on rise will monitor. vit b6 supp started. he has been having blurry vision from his right eye which started when he came to [facility]. MRI did not show any abnormality. pt is covering his right eye. He states blurry vision improves when his right eye is covered.
[2019-11-05 04:51] LABS: Digoxin 0.67 ng/mL (0.8-2.0)
[2019-11-05] MEDS: hydrALAZINE 25 MG TAB PO SCH ×3 (07:38→20:50)
[2019-11-05] MEDS: Carvedilol 6.25 MG TAB PO SCH ×2 (07:39→20:45)
[2019-11-05] MEDS: Aspirin Chewable 81 MG TAB PO SCH (07:39)
[2019-11-05] MEDS: Amlodipine 10 MG TAB PO SCH (07:39)
[2019-11-05] MEDS: Potassium Chloride 10 MEQ TAB PO SCH ×2 (07:39→16:42)
[2019-11-05] MEDS: Enoxaparin Sodium 30 MG/0.3 ML SYRINGE SC SCH (07:40)
[2019-11-05] MEDS: Digoxin 0.125 MG TAB PO SCH (07:40)
[2019-11-05] MEDS: Magnesium Oxide 400 MG TAB PO SCH ×2 (07:42→20:45)
[2019-11-05] MEDS: Isosorbide Dinitrate 20 MG TAB PO SCH ×3 (07:42→20:50)
[2019-11-05] MEDS: pyridOXINE 50 MG (B6) TAB PO SCH (07:42)
[2019-11-05] MEDS: Furosemide 100 MG/10 ML VIAL SLOW IVP SCH (07:42)
[2019-11-05] MEDS: AcetaZOLAMIDE 250 MG TAB PO SCH ×2 (07:43→20:45)
[2019-11-05 11:06] LABS: Anion Gap 10 mmol/L (10-20); BUN (Urea Nitrogen) 51 mg/dL (8.4-25.7); Calc. Creatinine Clearance 39 mL/min (70-130); Calcium 8.3 mg/dL (7.8-10.44); Carbon Dioxide 30 mmol/L (22-29); Chloride 101 mmol/L (98-107); Estimated GFR-MDRD 29; Glucose 135 mg/dL (70-105); Magnesium 1.9 mg/dL (1.6-2.6); Phosphorus 3.3 mg/dL (2.3-4.7); Potassium 4.4 mmol/L (3.5-5.1); Sodium 137 mmol/L (136-145)
[2019-11-05 11:07] LABS: Anion Gap 11 mmol/L (10-20); BUN (Urea Nitrogen) 50 mg/dL (8.4-25.7); Calc. Creatinine Clearance 40 mL/min (70-130); Calcium 8.3 mg/dL (7.8-10.44); Carbon Dioxide 30 mmol/L (22-29); Chloride 100 mmol/L (98-107); Estimated GFR-MDRD 30; Glucose 135 mg/dL (70-105); Magnesium 1.9 mg/dL (1.6-2.6); Potassium 4.4 mmol/L (3.5-5.1); Sodium 137 mmol/L (136-145)
[2019-11-05] MEDS: Milrinone Lactate/D5W 20 MG in Premix Bag 1 BAG IV SCH (11:22)
--- NOTE | 2019-11-05 12:17 | PRG ---
DATE OF SERVICE: 11/05/2019 SUBJECTIVE: Mr. Carolina had a good day. He was able to walk all the way to the of [place] and back. He is able to eat well. However, he does not think that he has much fluid came off. REVIEW OF SYSTEMS: GENERAL: There is no fever or chills. HEENT: There is no change in vision, hearing, or swallowing. PULMONARY: He is breathing easy, but then he noticed that with oxygen taken off , he is little bit more short of breath with that. CARDIAC: No palpitation or syncope. He still has orthopnea. GASTROINTESTINAL: He is eating well. GENITOURINARY: He is urinating well. NEUROLOGIC: There are no focal deficits or weaknesses. MUSCULOSKELETAL: There is no complaint of joint pains. INTEGUMENT: There are no complaints of skin breakdown or new rashes. MEDICATIONS: His current cardiac medications include, 1. Acetazolamide 200 mg twice a day. 2. Amlodipine 10 mg daily. 3. Aspirin 81 mg daily. 4. Carvedilol 6.25 mg twice a day. 5. Digoxin 0.125 mg daily. 6. Dobutamine 5 mcg/kg/minute based on 100 kg weight. 7. Furosemide 80 mg IV daily. 8. Hydralazine 100 mg q.8 hours. 9. Isosorbide dinitrate 30 mg three times a day. 10. Magnesium oxide 800 mg daily. 11. Milrinone 0.3 mcg/kg/minute. DIAGNOSTIC DATA: Telemetry has been reviewed. He is most in sinus rhythm. There is a PVC. His average heart rate is about 90. PHYSICAL EXAMINATION: VITAL SIGNS: His current vitals are heart rate 88 and blood pressure 144/78. He has been saturating 93% on room air. When he put on half a liter of oxygen, his saturation goes above 97%. His weight today is 193 pounds. There is no change from yesterday. GENERAL: He is alert and conversational. HEENT: Show EOMI. Oropharynx is benign with moist mucosa without erythema. No exudate. NECK: JVP remains elevated at least 13 cm. PULMONARY: He still has bibasilar crackles. CARDIAC: Regular rate and rhythm with occasional irregularity. There is a loud 2/6 holosystolic murmur at the apex with radiation to the left axilla. ABDOMEN: Soft and nontender with positive bowel sounds. EXTREMITIES: He has 3+ edema. There is greater than 1 inch indentation from the feet up to his knee. He has about 0.5 inch indentation from knee to half of his thighs. This seemed to be a little bit improved since yesterday and this has been improving daily. LABORATORY DATA: There are no labs today. ASSESSMENT: A 53-year-old gentleman resides in [place] Heart Association class 4 heart failure with reduced ejection fraction. He has both systolic and diastolic dysfunctions. He suffers from cardiorenal syndrome. We had to slow down his diuresis due to worsening of his renal function. However, without knowing labs, it is unsafe to increase his diuretic anymore. His blood pressure still needs better control. Ideally, he can be an excellent LVAD as bridge to heart transplant candidate. However, he does not have insurance that can support advanced heart failure therapy. Since he is uninsured, we will need to do as much as we can with inotropic support. Eventually, we will need to transition from inotropic drips to oral medications before discharge. Overall, his prognosis is quite grim. He could have been a heart transplant candidate if he had insurance and family support. If he does not have this, it is not possible. RECOMMENDATIONS: 1. Ensure that labs are drawn every day. This includes CBC, BMP, magnesium, and BNP. 2. Increase isosorbide dinitrate to 40 mg q.8 hours. 3. Please give O2 supplement to make sure his O2 saturation is above 95%. 4. Continue to record standing weight daily. It has been very helpful in quantifying his diuresis. 5. We will change his regimen again depending on the lab results that come back. It has been a pleasure taking care of Mr. [place]. If you have any questions, please give me a call. Job ID: [id number] MTDD
--- NOTE | 2019-11-05 12:22 | PDOC.HOSPP ---
- Subjective Encounter Date: 11/05/19 Encounter Time: 10:00 Subjective: pt up in bed feels well but has blurry vision to right eye. - Objective Vital Signs & Weight: Vital Signs (12 hours) Temp Pulse Pulse Pulse Resp BP BP 11/05/19 10:03 93 95 140/62 143/69 H 11/05/19 07:33 98.3 F 96 16 11/05/19 03:45 97.9 F 94 20 BP Pulse Ox 11/05/19 10:03 11/05/19 07:33 176/74 H 96 11/05/19 03:45 133/91 H 98 Weight Admit Weight 250 lb Weight 193 lb 4.8 oz I&O: 11/04/19 11/05/19 11/06/19 06:59 06:59 06:59 Intake Total 1801 1430 Output Total 3075 1999 Balance -1274 -570 Result Diagrams: 11/02/19 03:40 11/05/19 10:23 Additional Labs: Accuchecks 11/05/19 11/05/19 11/04/19 10:48 05:31 20:35 POC Glucose 137 H 132 H 163 H 11/04/19 16:26 POC Glucose 135 H Hospitalist ROS - Review of Systems Cardiovascular: denies: chest pain, palpitations, orthopnea, paroxysmal noc. dyspnea, edema, light headedness, other Gastrointestinal: denies: nausea, vomiting, abdominal pain, diarrhea, constipation, melena, hematochezia, other Genitourinary: denies: dysuria, frequency, incontinence, hematuria, retention, other - Medication Medications: Active Medications Generic Name Dose Route Start Last Admin Trade Name Sebastian PRN Reason Stop Dose Admin Acetaminophen 650 mg 10/26/19 20:04 10/26/19 20:15 Tylenol PO 650 mg Q4H PRN Administration Headache/Fever or Pain Acetazolamide 250 mg 11/03/19 21:00 11/05/19 07:43 Diamox PO 11/05/19 21:01 250 mg BID JEN Administration Amlodipine Besylate 10 mg 10/31/19 09:00 11/05/19 07:39 Norvasc PO 10 mg DAILY JEN Administration Aspirin 81 mg 10/31/19 09:00 11/05/19 07:39 Aspirin Chewable PO 81 mg DAILY JEN Administration Carvedilol 6.25 mg 11/01/19 09:00 11/05/19 07:39 Coreg PO 6.25 mg BID JEN Administration Digoxin 0.125 mg 10/28/19 09:00 11/05/19 07:40 Lanoxin PO 0.125 mg QAM JEN Administration Enoxaparin Sodium 30 mg 10/24/19 09:00 11/05/19 07:40 Lovenox SC 30 mg 0900 JEN Administration Ferrous Sulfate 325 mg 10/24/19 21:00 11/03/19 21:16 Feosol PO 325 mg Q2D JEN Administration Furosemide 80 mg 11/04/19 09:00 11/05/19 07:42 Lasix SLOW IVP 80 mg DAILY JEN Administration Hydralazine HCl 100 mg 11/04/19 14:00 11/05/19 07:38 Apresoline PO 100 mg Q8HR JEN Administration Dobutamine HCl/Dextrose 500 mg 250 mls @ 15.15 mls/hr 10/29/19 19:00 23:26 / Device IVPB 250 mls INF JEN Administration Protocol Milrinone Lactate/Dextrose 20 100 mls @ 9.1 mls/hr 11/03/19 12:45 11/05/19 11 :22 mg/ Device IV 100 mls INF JEN Administration Protocol Insulin Human Regular 0 units 10/23/19 16:10 11/03/19 16:56 Humulin R SC 2 unit .MILD SLIDING SCALE PRN Administration Mild Correctional Scale Magnesium Oxide 800 mg 11/03/19 21:00 11/05/19 07:42 Magnesium Oxide PO 800 mg BID JEN Administration Ondansetron HCl 4 mg 10/27/19 11:19 10/27/19 21:38 Zofran IVP 4 mg Q6H PRN Administration Nausea/Vomiting Potassium Chloride 10 meq 11/03/19 17:00 11/05/19 07:39 Klor-Con 10 PO 10 meq BID-WM JEN Administration Pyridoxine HCl 50 mg 11/05/19 09:00 11/05/19 07:42 Vitamin B 6 PO 50 mg DAILY JEN Administration Sodium Chloride 10 ml 10/25/19 21:00 11/05/19 07:43 Flush - Normal Saline IVF 10 ml Q12HR JEN Administration Sodium Chloride 10 ml 10/25/19 09:41 11/03/19 06:13 Flush - Normal Saline IVF 10 ml PRN PRN Administration Saline Flush - Exam Eye - other findings: blurry vision Neck: negative: supple, symmetric, no JVD, no thyromegaly, no lymphadenopathy, no carotid bruit, JVD Heart: negative: RRR, no murmur, no gallops, no rubs, normal peripheral pulses, irregular, diminshed peripheral pulses, murmur present, II/IV, III/IV Respiratory - other findings: mild crackles to bases Gastrointestinal: negative: soft, non-tender, non-distended, normal bowel sounds , no palpable masses, no hepatomegaly, no splenomegaly, no bruit, no guarding, no rigidity, tender to palpation, distended, diminished bowl sounds, voluntary guarding Hosp A/P (1) CHF (congestive heart failure), NYHA class III Code(s): I50.9 - HEART FAILURE, UNSPECIFIED Status: Acute (2) Nonischemic cardiomyopathy Code(s): I42.8 - OTHER CARDIOMYOPATHIES Status: Acute (3) Stage 3b chronic kidney disease Code(s): N18.3 - CHRONIC KIDNEY DISEASE, STAGE 3 (MODERATE) Status: Acute (4) T2DM (type 2 diabetes mellitus) Status: Acute - Plan will follow along creatinine, He is on milronine and dobutamine. pt has been loosing weight. will continue current diuretics. will monitor electrolytes. hydrazine dose has been increased due to elevated bp. 11/01 pt's weight today was 201. continue current meds milronine and dobutamine. 11/02 pt's creatinine is worsening, his bnp has improved. He has lost a lot of weight his current weight is 195lbs. will discuss with HF to back off the lasix for now to avoid overdiuresis. 11/03 pt's bp meds have been increased. His lasix has been decreased. creatinine still on rise will monitor. vit b6 supp started. he has been having blurry vision from his right eye which started when he came to [facility]. MRI did not show any abnormality. pt is covering his right eye. He states blurry vision improves when his right eye is covered. 11/[address] Traore will hold his lasix for geovani. will continue dobutamine and milirone. consulted ophthalmology for his blurry vision. His mri did not indicate any abnormalities.
--- NOTE | 2019-11-05 16:09 | CON ---
DATE OF CONSULTATION: 11/05/2019 TIME SEEN: 1530 hours. REASON FOR CONSULTATION: Blurred vision, right eye. HISTORY OF PRESENT ILLNESS: The patient is a 53-year-old man with congestive heart failure, hypertension, diabetes mellitus type 2, who was admitted for worsening of his congestive heart failure. He previously had good vision bilaterally until 2 weeks previously. He woke with marked loss of vision of the right eye. There has been no change of that since then. PHYSICAL EXAMINATION: On examination, visual acuity with the right eye is intermittent ability to count fingers at 1 foot, and the left eye is J-2 with his reading glasses. Confrontation visual field of the right eye was severely constricted to about 10 degrees and the left eye was full. Intraocular pressure with Juan-Pen was 10 mmHg and 9 mmHg right eye, and 12 mmHg and 9 mmHg left eye. The pupils were about 2 mm and only slightly detectable reaction to light without any detectable afferent pupillary defect. On motility testing with Hirschberg, there appeared to be a very small right exotropia, but otherwise was aligned and with full range of motion. His pupils were dilated with Mydriacyl and Sharath-Synephrine drops. After dilation, the anterior segment appeared normal with relatively clear view of the fundus. The right eye had large amounts of preretinal blood, more so in the inferior half. The left eye had a very small amount of preretinal blood just below the optic nerve. Both optic nerves had a normal rim color with a cup/disk ratio of 0.7. The left macula appeared normal. ASSESSMENT: Probable proliferative diabetic retinopathy with vitreous hemorrhage of the right eye and a small preretinal hemorrhage of the left eye. PLAN: The patient needs retinal consultation after discharge from the hospital. Prior to that, he needs to obtain some type of third democrat fare to provide for the retinal evaluation and any treatment. Job ID: [id number]
[2019-11-05] MEDS: Ferrous Sulfate 325 MG TAB PO SCH (20:50)
[2019-11-05] MEDS: DOBUTamine 500 mg/250 ml 500 MG in Premix Bag 1 BAG IVPB SCH (23:44)
[2019-11-06 05:03] LABS: #Basophils 0.1 thou/uL (0.0-0.2); #Eosinphils 0.3 thou/uL (0.0-0.7); #Lymphocytes 1.5 thou/uL (1.20-3.40); #Monocytes 0.7 thou/uL (0.11-0.59); #Neutrophils 5.9 thou/uL (1.40-6.50); %Basophils 0.7 % (0.0-1.0); %Eosinophils 3.3 % (0.0-10.0); %Lymphocytes 17.4 % (21.0-51.0); %Monocytes 8.1 % (0.0-10.0); %Neutrophils 70.5 % (42.0-75.0); Hemoglobin 8.8 g/dL (14.0-18.0); Mean Corpuscular HGB CONC 30.5 g/dL (32.0-36.0); Mean Corpuscular Volume 78.8 fL (78.0-98.0); Platelet Count 282 thou/uL (130-400); RBC Distribution Width 16.1 % (11.5-14.5); Red Blood Cell (RBC) Count 3.66 mill/uL (4.70-6.10); White Blood Cell (WBC) Count 8.4 thou/uL (4.8-10.8)
[2019-11-06 05:27] LABS: Anion Gap 9 mmol/L (10-20); BUN (Urea Nitrogen) 51 mg/dL (8.4-25.7); Calc. Creatinine Clearance 39 mL/min (70-130); Carbon Dioxide 30 mmol/L (22-29); Chloride 103 mmol/L (98-107); Estimated GFR-MDRD 29; Glucose 187 mg/dL (70-105); Potassium 4.2 mmol/L (3.5-5.1); Sodium 138 mmol/L (136-145)
[2019-11-06] MEDS: Isosorbide Dinitrate 20 MG TAB PO SCH ×3 (05:47→22:15)
[2019-11-06] MEDS: hydrALAZINE 25 MG TAB PO SCH ×3 (05:47→22:15)
[2019-11-06] MEDS: Potassium Chloride 10 MEQ TAB PO SCH ×2 (08:18→16:35)
[2019-11-06] MEDS: Digoxin 0.125 MG TAB PO SCH (08:18)
[2019-11-06] MEDS: Carvedilol 6.25 MG TAB PO SCH ×2 (08:18→22:15)
[2019-11-06] MEDS: Aspirin Chewable 81 MG TAB PO SCH (08:18)
[2019-11-06] MEDS: Amlodipine 10 MG TAB PO SCH (08:18)
[2019-11-06] MEDS: Magnesium Oxide 400 MG TAB PO SCH ×2 (08:18→22:15)
[2019-11-06] MEDS: pyridOXINE 50 MG (B6) TAB PO SCH (08:18)
[2019-11-06] MEDS: Enoxaparin Sodium 30 MG/0.3 ML SYRINGE SC SCH (08:19)
[2019-11-06] MEDS ORDERED: cloNIDine 0.1 MG TAB PO SCH (08:45)
[2019-11-06] MEDS ORDERED: Heparin 5,000 UNITS/ML VIAL SC SCH (09:00)
[2019-11-06 09:35] LABS: Anion Gap 10 mmol/L (10-20); BUN (Urea Nitrogen) 51 mg/dL (8.4-25.7); Calc. Creatinine Clearance 39 mL/min (70-130); Calcium 8.1 mg/dL (7.8-10.44); Carbon Dioxide 30 mmol/L (22-29); Chloride 103 mmol/L (98-107); Estimated GFR-MDRD 29; Glucose 158 mg/dL (70-105); Potassium 4.2 mmol/L (3.5-5.1); Sodium 139 mmol/L (136-145)
[2019-11-06] MEDS ORDERED: Tamsulosin HCl 0.4 MG CAP PO SCH ×2 (10:00)
[2019-11-06] MEDS: Insulin Regular 300 UNITS/3 ML VIAL SC PRN ×2 (12:29→17:45)
--- NOTE | 2019-11-06 13:56 | PRG ---
DATE OF SERVICE: 11/06/2019 SERVICE: Advanced Heart Failure Cardiology Consult Service. SUBJECTIVE: Mr. Carolina had a good day. He was able to walk all the way down to the end of the hallway and walked back. This was done with assistance from cardiac rehabilitation. From time late in afternoon and early evening, his PICC was infiltrated. Consequently, they had to replace it with a peripheral line. He is unsure of how long that took. In the peripheral line, he is a bit unstable. REVIEW OF SYSTEMS: GENERAL: There is no fever, chills, or cough. HEENT: He still has a right-sided loss of vision. There is no change in hearing or swallowing. PULMONARY: He is not short of breath at rest. Please see HPI. CARDIOVASCULAR: There is no palpitation or syncope. GASTROINTESTINAL: He is able to eat well. GENITOURINARY: He continues to urinate without difficulties. NEUROLOGIC: There is no focal weakness or deficits. MUSCULOSKELETAL: He does not complain of any joint pains. INTEGUMENT: There is no new breakdown. MEDICATIONS: His current cardiac medications include, 1. Magnesium 800 mg twice a day. 2. Dobutamine currently at 5 mcg/kg/minute. 3. Carvedilol at 6.25 mg twice a day. 4. Digoxin at 0.125 daily. 5. Milrinone at 0.3 mcg/kg/minute. 6. Amlodipine at 10 mg daily. 7. Hydralazine at 100 mg q.8 hours. 8. Isosorbide dinitrate at 40 mg q.8 hours. 9. Aspirin 81 mg daily. 10. Potassium chloride in the form of Klor-Con at 10 mEq daily. PHYSICAL EXAMINATION: VITAL SIGNS: Heart rate is 83, blood pressure 149/66. Telemetry was reviewed. It shows sinus rhythm and some PVC. There is no concerning arrhythmia. GENERAL: He is alert and conversational, able to carry long sentences. HEENT: Show EOMI. Oropharynx is benign with moist mucosa without erythema. No exudate. NECK: JVP is still high about 15 cm. PULMONARY: Good air movement bilaterally in upper lung [place]. However, he still has bilateral basilar crackles. CARDIAC: Regular rate and rhythm. 3/6 holosystolic murmur at the apex with radiation to the left axilla. ABDOMEN: Little bit distended, soft, nontender. EXTREMITIES: Lower extremity still has 3+ edema. There is greater than 1 cm indentation from his feet to his knees. He has about 2+ edema from the knee to mid thighs. His daily weight increased about 1 pound from 193 to 194. This is most likely due to reduced diuresis. He did get Lasix IV one dose yesterday. LABORATORY DATA: His laboratory values consist of sodium 139, potassium 4.2, chloride 103, bicarb 30, BUN is 51, and creatinine at 2.79. ASSESSMENT: A 53-year-old gentleman resides in [place] heart Association class 4 heart failure with reduced ejection fraction. This is a nonischemic cardiomyopathy with combined systolic and diastolic dysfunction. He suffers from cardiorenal syndrome. He remains volume overloaded. He continues to have [id number] hypertension. At this point, we will give him a one day diuresis break. We will cigar packer and picker the diuresis again tomorrow. The objective is to recover his renal function before we diurese again. More urgently, his peripherally inserted central catheter needs to be replaced. Otherwise, there is no way to continuously infuse medications. Please see the following for recommendations. RECOMMENDATIONS: 1. Hold IV furosemide for today. For tomorrow, we will start with metolazone 2.5 mg oral one dose followed by Lasix 100 mg IV 30 minutes later. Then, we will follow him throughout the day to see how much more he needs. Please find a way to replace the PICC line. He will need this for chronic infusion. 2. Please continue to weigh him daily on a stand up weight that has been working very well. It has been a pleasure taking care of Mr. [place]. If you have any questions, please give me a call. Job ID: [id number] MTDD
[2019-11-06] MEDS: DOBUTamine 500 mg/250 ml 500 MG in Premix Bag 1 BAG IVPB SCH (16:04)
--- NOTE | 2019-11-06 16:21 | PDOC.HOSPP ---
- Subjective Encounter Date: 11/06/19 Encounter Time: 09:45 Subjective: pt up in bed feels dizzy and tired. - Objective Vital Signs & Weight: Vital Signs (12 hours) Temp Pulse Pulse Pulse Resp BP BP 11/06/19 16:00 98.7 F 85 16 11/06/19 14:35 86 164/70 H 11/06/19 14:07 86 79 164/70 H 11/06/19 11:10 98.2 F 83 16 11/06/19 09:01 146/65 H 11/06/19 08:18 95 182/80 H 11/06/19 07:20 98.6 F 95 16 BP BP Pulse Ox 11/06/19 16:00 159/70 H 94 L 11/06/19 14:35 11/06/19 14:07 139/65 11/06/19 11:10 149/66 H 98 11/06/19 09:01 11/06/19 08:18 11/06/19 07:20 182/80 H 98 Weight Admit Weight 250 lb Weight 194 lb 8 oz I&O: 11/05/19 11/06/19 11/07/19 06:59 06:59 06:59 Intake Total 1430 1539.6 Output Total 1999 3350 Balance -570 -1810.4 Result Diagrams: 11/06/19 04:35 11/06/19 09:00 Additional Labs: Accuchecks 11/06/19 11/06/19 11/05/19 11:15 05:38 20:51 POC Glucose 179 H 169 H 176 H 11/05/19 16:46 POC Glucose 150 H Hospitalist ROS - Review of Systems Respiratory: denies: cough, dry, shortness of breath, hemoptysis, SOB with excertion, pleuritic pain, sputum, wheezing, other Cardiovascular: denies: chest pain, palpitations, orthopnea, paroxysmal noc. dyspnea, edema, light headedness, other Gastrointestinal: denies: nausea, vomiting, abdominal pain, diarrhea, constipation, melena, hematochezia, other - Medication Medications: Active Medications Generic Name Dose Route Start Last Admin Trade Name Freq PRN Reason Stop Dose Admin Acetaminophen 650 mg 10/26/19 20:04 10/26/19 20:15 Tylenol PO 650 mg Q4H PRN Administration Headache/Fever or Pain Amlodipine Besylate 10 mg 10/31/19 09:00 11/06/19 08:18 Norvasc PO 10 mg DAILY JEN Administration Aspirin 81 mg 10/31/19 09:00 11/06/19 08:18 Aspirin Chewable PO 81 mg DAILY JEN Administration Carvedilol 6.25 mg 11/01/19 09:00 11/06/19 08:18 Coreg PO 6.25 mg BID JEN Administration Digoxin 0.125 mg 10/28/19 09:00 11/06/19 08:18 Lanoxin PO 0.125 mg QAM JEN Administration Ferrous Sulfate 325 mg 10/24/19 21:00 11/05/19 20:50 Feosol PO 325 mg Q2D JEN Administration Furosemide 80 mg 11/04/19 09:00 11/05/19 07:42 Lasix SLOW IVP 80 mg DAILY JEN Administration Hydralazine HCl 100 mg 11/04/19 14:00 11/06/19 14:35 Apresoline PO 100 mg Q8HR JEN Administration Dobutamine HCl/Dextrose 500 mg 250 mls @ 15.15 mls/hr 10/29/19 19:00 16:04 / Device IVPB 250 mls INF JEN Administration Protocol Milrinone Lactate 20 mg/ 100 mls @ 0 mls/hr 11/05/19 22:30 11/06/19 16:03 Sodium Chloride IVPB 100 mls INF JEN Administration Protocol As Directed Insulin Human Regular 0 units 10/23/19 16:10 11/06/19 12:29 Humulin R SC 2 unit .MILD SLIDING SCALE PRN Administration Mild Correctional Scale Isosorbide Dinitrate 40 mg 11/05/19 14:00 11/06/19 14:35 Isordil PO 40 mg Q8HR JEN Administration Magnesium Oxide 800 mg 11/03/19 21:00 11/06/19 08:18 Magnesium Oxide PO 800 mg BID JEN Administration Ondansetron HCl 4 mg 10/27/19 11:19 10/27/19 21:38 Zofran IVP 4 mg Q6H PRN Administration Nausea/Vomiting Potassium Chloride 10 meq 11/03/19 17:00 11/06/19 08:18 Klor-Con 10 PO 10 meq BID-WM JEN Administration Pyridoxine HCl 50 mg 11/05/19 09:00 11/06/19 08:18 Vitamin B 6 PO 50 mg DAILY JEN Administration Sodium Chloride 10 ml 10/25/19 21:00 11/06/19 08:19 Flush - Normal Saline IVF 10 ml Q12HR JEN Administration Sodium Chloride 10 ml 10/25/19 09:41 11/03/19 06:13 Flush - Normal Saline IVF 10 ml PRN PRN Administration Saline Flush - Exam Neck: negative: supple, symmetric, no JVD, no thyromegaly, no lymphadenopathy, no carotid bruit, JVD Heart: negative: RRR, no murmur, no gallops, no rubs, normal peripheral pulses, irregular, diminshed peripheral pulses, murmur present, II/IV, III/IV Respiratory - other findings: mild crackles to bases Gastrointestinal: negative: soft, non-tender, non-distended, normal bowel sounds , no palpable masses, no hepatomegaly, no splenomegaly, no bruit, no guarding, no rigidity, tender to palpation, distended, diminished bowl sounds, voluntary guarding Hosp A/P (1) CHF (congestive heart failure), NYHA class III Code(s): I50.9 - HEART FAILURE, UNSPECIFIED Status: Acute (2) Nonischemic cardiomyopathy Code(s): I42.8 - OTHER CARDIOMYOPATHIES Status: Acute (3) Stage 3b chronic kidney disease Code(s): N18.3 - CHRONIC KIDNEY DISEASE, STAGE 3 (MODERATE) Status: Acute (4) T2DM (type 2 diabetes mellitus) Status: Acute - Plan will follow along creatinine, He is on milronine and dobutamine. pt has been loosing weight. will continue current diuretics. will monitor electrolytes. hydrazine dose has been increased due to elevated bp. 11/01 pt's weight today was 201. continue current meds milronine and dobutamine. 11/02 pt's creatinine is worsening, his bnp has improved. He has lost a lot of weight his current weight is 195lbs. will discuss with HF to back off the lasix for now to avoid overdiuresis. 11/03 pt's bp meds have been increased. His lasix has been decreased. creatinine still on rise will monitor. vit b6 supp started. he has been having blurry vision from his right eye which started when he came to [facility]. MRI did not show any abnormality. pt is covering his right eye. He states blurry vision improves when his right eye is covered. 11/[address] Traore will hold his lasix for geovani. will continue dobutamine and milirone. consulted ophthalmology for his blurry vision. His mri did not indicate any abnormalities. 11/[address] traore who states that he wants to restart pt's lasix. He was off his dobutamine and milirone due to iv access. will montior. His creatinine is still very high.
--- NOTE | 2019-11-06 16:24 | SPC ---
Sonographic guided left upper extremity PICC placement HISTORY: Heart failure. FINDINGS: After explaining the procedure and answering all questions, the left upper extremity was pr epped and draped in usual sterile fashion. Sterile technique, buffered local anesthesia, sonographic guidance, and a 22-gauge needle were used to carefully access the left brachial vein. Sta ndard technique was used to place the tip of a 5 [place] single lumen PICC so that the tip lies at the level of the cavoatrial junction. Catheter was flushed and secured externally. Patient tolerated the procedure well and was returned in unchanged condition. IMPRESSION : Left upper extremity PICC is ready for use.
[2019-11-07] MEDS ORDERED: Metolazone 2.5 MG TAB PO SCH (06:00)
[2019-11-07] MEDS: Isosorbide Dinitrate 20 MG TAB PO SCH ×3 (06:10→21:39)
[2019-11-07] MEDS: hydrALAZINE 25 MG TAB PO SCH ×3 (06:11→21:40)
[2019-11-07] MEDS ORDERED: Furosemide 100 MG/10 ML VIAL SLOW IVP SCH (06:30)
[2019-11-07] MEDS: Potassium Chloride 10 MEQ TAB PO SCH ×2 (08:54→17:16)
[2019-11-07] MEDS: Carvedilol 6.25 MG TAB PO SCH ×2 (08:55→21:40)
[2019-11-07] MEDS: Amlodipine 10 MG TAB PO SCH (08:55)
[2019-11-07] MEDS: Aspirin Chewable 81 MG TAB PO SCH (08:55)
[2019-11-07] MEDS: Digoxin 0.125 MG TAB PO SCH (08:56)
[2019-11-07] MEDS: Magnesium Oxide 400 MG TAB PO SCH ×3 (08:56→21:39)
[2019-11-07] MEDS: pyridOXINE 50 MG (B6) TAB PO SCH (08:57)
[2019-11-07] MEDS: Tamsulosin HCl 0.4 MG CAP PO SCH (08:57)
[2019-11-07] MEDS: Heparin 5,000 UNITS/ML VIAL SC SCH ×3 (09:05→21:39)
--- NOTE | 2019-11-07 09:34 | PDOC.HOSPP ---
- Subjective Encounter Date: 11/07/19 Encounter Time: 11:15 Subjective: pt up in bed no complains - Objective Vital Signs & Weight: Vital Signs (12 hours) Temp Pulse Resp BP BP Pulse Ox 11/07/19 08:55 95 11/07/19 08:53 95 149/66 H 11/07/19 08:00 98.8 F 95 18 180/77 H 96 11/07/19 06:11 99 11/07/19 03:45 98.8 F 99 18 156/70 H 92 L 11/07/19 00:38 93 L 11/06/19 22:15 98 164/70 H Weight Admit Weight 250 lb Weight 194 lb 11.2 oz I&O: 11/06/19 11/07/19 11/08/19 06:59 06:59 06:59 Intake Total 1539.6 2090 Output Total 3350 2500 Balance -1810.4 -410 Result Diagrams: 11/06/19 04:35 11/06/19 09:00 Additional Labs: Accuchecks 11/07/19 11/06/19 11/06/19 05:53 20:38 16:55 POC Glucose 108 196 H 197 H 11/06/19 11:15 POC Glucose 179 H Hospitalist ROS - Review of Systems Cardiovascular: denies: chest pain, palpitations, orthopnea, paroxysmal noc. dyspnea, edema, light headedness, other Gastrointestinal: denies: nausea, vomiting, abdominal pain, diarrhea, constipation, melena, hematochezia, other Genitourinary: denies: dysuria, frequency, incontinence, hematuria, retention, other - Medication Medications: Active Medications Generic Name Dose Route Start Last Admin Trade Name Freq PRN Reason Stop Dose Admin Acetaminophen 650 mg 10/26/19 20:04 10/26/19 20:15 Tylenol PO 650 mg Q4H PRN Administration Headache/Fever or Pain Amlodipine Besylate 10 mg 10/31/19 09:00 11/07/19 08:55 Norvasc PO 10 mg DAILY JEN Administration Aspirin 81 mg 10/31/19 09:00 11/07/19 08:55 Aspirin Chewable PO 81 mg DAILY JEN Administration Carvedilol 12.5 mg 11/07/19 09:00 11/07/19 08:55 Coreg PO 12.5 mg BID JEN Administration Digoxin 0.125 mg 10/28/19 09:00 11/07/19 08:56 Lanoxin PO 0.125 mg QAM JEN Administration Ferrous Sulfate 325 mg 10/24/19 21:00 11/05/19 20:50 Feosol PO 325 mg Q2D JEN Administration Furosemide 80 mg 11/04/19 09:00 11/05/19 07:42 Lasix SLOW IVP 80 mg DAILY JEN Administration Heparin Sodium (Porcine) 5,000 units 11/07/19 09:00 11/07/19 09:05 Heparin SC 5,000 units TID JEN Administration Hydralazine HCl 100 mg 11/04/19 14:00 11/07/19 06:11 Apresoline PO 100 mg Q8HR JEN Administration Dobutamine HCl/Dextrose 500 mg 250 mls @ 15.15 mls/hr 10/29/19 19:00 16:04 / Device IVPB 250 mls INF JEN Administration Protocol Milrinone Lactate 20 mg/ 100 mls @ 0 mls/hr 11/05/19 22:30 11/07/19 06:41 Sodium Chloride IVPB 100 mls INF JEN Administration Protocol As Directed Insulin Human Regular 0 units 10/23/19 16:10 11/06/19 17:45 Humulin R SC 2 unit .MILD SLIDING SCALE PRN Administration Mild Correctional Scale Isosorbide Dinitrate 40 mg 11/05/19 14:00 11/07/19 06:10 Isordil PO 40 mg Q8HR JEN Administration Magnesium Oxide 800 mg 11/03/19 21:00 11/07/19 09:07 Magnesium Oxide PO 800 mg BID JEN Administration Ondansetron HCl 4 mg 10/27/19 11:19 10/27/19 21:38 Zofran IVP 4 mg Q6H PRN Administration Nausea/Vomiting Potassium Chloride 10 meq 11/03/19 17:00 11/07/19 08:54 Klor-Con 10 PO 10 meq BID-WM JEN Administration Pyridoxine HCl 50 mg 11/05/19 09:00 11/07/19 08:57 Vitamin B 6 PO 50 mg DAILY JEN Administration Sodium Chloride 10 ml 10/25/19 21:00 11/07/19 08:57 Flush - Normal Saline IVF 10 ml Q12HR JEN Administration Sodium Chloride 10 ml 10/25/19 09:41 11/03/19 06:13 Flush - Normal Saline IVF 10 ml PRN PRN Administration Saline Flush Tamsulosin HCl 0.4 mg 11/07/19 09:00 11/07/19 08:57 Flomax PO 0.4 mg DAILY JEN Administration - Exam Heart: negative: RRR, no murmur, no gallops, no rubs, normal peripheral pulses, irregular, diminshed peripheral pulses, murmur present, II/IV, III/IV Respiratory - other findings: mild crackles to bases Gastrointestinal: negative: soft, non-tender, non-distended, normal bowel sounds , no palpable masses, no hepatomegaly, no splenomegaly, no bruit, no guarding, no rigidity, tender to palpation, distended, diminished bowl sounds, voluntary guarding Extremities: 2+ LE edema Hosp A/P (1) CHF (congestive heart failure), NYHA class III Code(s): I50.9 - HEART FAILURE, UNSPECIFIED Status: Acute (2) Nonischemic cardiomyopathy Code(s): I42.8 - OTHER CARDIOMYOPATHIES Status: Acute (3) Stage 3b chronic kidney disease Code(s): N18.3 - CHRONIC KIDNEY DISEASE, STAGE 3 (MODERATE) Status: Acute (4) T2DM (type 2 diabetes mellitus) Status: Acute - Plan will follow along creatinine, He is on milronine and dobutamine. pt has been loosing weight. will continue current diuretics. will monitor electrolytes. hydrazine dose has been increased due to elevated bp. 11/01 pt's weight today was 201. continue current meds milronine and dobutamine. 11/02 pt's creatinine is worsening, his bnp has improved. He has lost a lot of weight his current weight is 195lbs. will discuss with HF to back off the lasix for now to avoid overdiuresis. 11/03 pt's bp meds have been increased. His lasix has been decreased. creatinine still on rise will monitor. vit b6 supp started. he has been having blurry vision from his right eye which started when he came to [facility]. MRI did not show any abnormality. pt is covering his right eye. He states blurry vision improves when his right eye is covered. 11/[address] Traore will hold his lasix for geovani. will continue dobutamine and milirone. consulted ophthalmology for his blurry vision. His mri did not indicate any abnormalities. 11/[address] traore who states that he wants to restart pt's lasix. He was off his dobutamine and milirone due to iv access. will montior. His creatinine is still very high. 11/06 pt given lasix today. will monitor electrolytes. bmp for today is pending. will continue to monitor his vitals and weight. 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
[2019-11-07] MEDS ORDERED: Heparin 1,000 UNITS/ML VIAL ONE (09:38)
[2019-11-07 10:31] LABS: #Basophils 0.1 thou/uL (0.0-0.2); #Eosinphils 0.2 thou/uL (0.0-0.7); #Lymphocytes 1.2 thou/uL (1.20-3.40); #Monocytes 0.8 thou/uL (0.11-0.59); #Neutrophils 5.5 thou/uL (1.40-6.50); %Basophils 0.7 % (0.0-1.0); %Eosinophils 2.8 % (0.0-10.0); %Lymphocytes 15.9 % (21.0-51.0); %Monocytes 9.7 % (0.0-10.0); %Neutrophils 70.9 % (42.0-75.0); Hemoglobin 8.8 g/dL (14.0-18.0); Mean Corpuscular HGB CONC 30.1 g/dL (32.0-36.0); Mean Corpuscular Hemoglobin 23.7 pg (27.0-31.0); Mean Corpuscular Volume 78.8 fL (78.0-98.0); Mean Platelet Volume 9.6 fL (7.4-10.4); Platelet Count 315 thou/uL (130-400); Red Blood Cell (RBC) Count 3.71 mill/uL (4.70-6.10); White Blood Cell (WBC) Count 7.8 thou/uL (4.8-10.8)
[2019-11-07 10:45] LABS: Anion Gap 11 mmol/L (10-20); BUN (Urea Nitrogen) 53 mg/dL (8.4-25.7); Calc. Creatinine Clearance 39 mL/min (70-130); Calcium 8.6 mg/dL (7.8-10.44); Carbon Dioxide 27 mmol/L (22-29); Chloride 102 mmol/L (98-107); Estimated GFR-MDRD 29; Glucose 150 mg/dL (70-105); Magnesium 2.1 mg/dL (1.6-2.6); Potassium 4.4 mmol/L (3.5-5.1); Sodium 136 mmol/L (136-145)
--- NOTE | 2019-11-07 13:00 | PRG ---
DATE OF SERVICE: 11/07/2019 SUBJECTIVE: Mr. Carolina had a good day. He was able to ambulate all the way down to the [place] and back. He did not have any fever, chills, or cough. He is breathing easier. He was able to maintain urine output despite no diuretics. REVIEW OF SYSTEMS: GENERAL: There is no fever, chills, or cough. Energy level is good. PULMONARY: Breathing easy. CARDIOVASCULAR: There are no palpitations or syncope. GASTROINTESTINAL: He is able to eat well. GENITOURINARY: There is no problem with urination. NEUROLOGIC: He complains of sudden tremors or jerks. MUSCULOSKELETAL: There are no complaints. He can see his knees now. He is happy with that. INTEGUMENT: There is no new skin breakdown. MEDICATIONS: Medication that would have a cardiovascular effect, Flomax 0.4 mg daily, this is to lower the blood pressure; magnesium oxide 800 mg twice a day; dobutamine currently at 5 mcg/kg/minute; carvedilol has been increased to 12.5 mg twice per day; digoxin 0.125 mg every morning; milrinone currently at 0.3 mcg/kg/minute; amlodipine 10 mg daily; hydralazine 100 mg q.8 hours; isosorbide dinitrate at 40 mg q.8 hours; aspirin 81 mg daily; potassium chloride at 10 mEq twice a day. PHYSICAL EXAMINATION: VITAL SIGNS: His last set of vitals are heart rate 95, blood pressure 149/66. GENERAL: He is alert, conversational. There is no acute distress. He is able to carry on a long sentence. HEENT: Show EOMI. Oropharynx benign. There is no erythema. NECK: JVP is still elevated, at least 12, maybe 13 cm. PULMONARY: There are bilateral bibasilar crackles. CARDIAC: Regular rate and rhythm with 3/6 holosystolic murmur at the apex with radiation to the left axilla. ABDOMEN: Soft, nontender. Positive bowel sounds. EXTREMITIES: Lower extremity edema has decreased somewhat, it is 2+. It is about 3/4 cm indention from the feet up to his knee and about 0.5 cm indention from his knee about half his thigh. Even without diuretics, he was able to maintain his weight at 194 pounds. The patient reported that he had larger volume urine output this morning after combination of metolazone and Lasix 100 mg. The labs were not drawn this morning. Unfortunately, the lab drawn in midst of metolazone and Lasix will not be accurate, you are likely to have worse renal function than what would have been after some recovery. ASSESSMENT: A 53-year-old gentleman, resides in [place] Heart Association class 4 heart failure with reduced ejection fraction. This is a nonischemic cardiomyopathy with combination of systolic and diastolic dysfunctions. He remains volume overloaded. He has a cardiorenal syndrome. His renal status remains tenuous. There are some signs of a potential milrinone toxicity, so this will need to be decreased. It is good that he is able to maintain his weight on a diuretic holiday. This suggests the current iontrope combination is sufficient to at least maintain sufficient cardiac output. However, he will still need inotrope for [employer] until he reaches euvolemia and reaches a good dry weight. It may be several days or week before we can get there, but due to his tenuous renal status and his decreasing volume, rate of his diureses will need to be decreased, perhaps like every other day. Please see the following for recommendations. RECOMMENDATIONS: 1. Decrease milrinone to 0.25 mcg/kg/minute. 2. Ensure daily labs are drawn and results are shown before diuretics. 3. Stop all diuretics for now. 4. We will reassess tomorrow morning after the labs come back and pick diuretics dosage from that point. 5. It is possible that we may have to do every other day the large volume diuretics, that will allow one day for kidneys to recover. I suspect we will still be able to maintain diuresis and eventually get him down to dry weight. He has lost about 30 pounds already. So, hopefully we will approach dry weight within a week. It has been a pleasure taking care of Mr. Carolina. If you have any questions, please give me a call. Job ID: [id number] [facility]
[2019-11-07] MEDS: Insulin Regular 300 UNITS/3 ML VIAL SC PRN (17:17)
[2019-11-07] MEDS: Ferrous Sulfate 325 MG TAB PO SCH (21:43)
[2019-11-08 04:18] LABS: #Eosinphils 0.2 thou/uL (0.0-0.7); #Lymphocytes 1.6 thou/uL (1.20-3.40); #Monocytes 0.7 thou/uL (0.11-0.59); #Neutrophils 4.4 thou/uL (1.40-6.50); %Basophils 0.6 % (0.0-1.0); %Lymphocytes 22.7 % (21.0-51.0); %Monocytes 9.9 % (0.0-10.0); %Neutrophils 63.9 % (42.0-75.0); Hemoglobin 8.6 g/dL (14.0-18.0); Mean Corpuscular HGB CONC 30.4 g/dL (32.0-36.0); Mean Platelet Volume 9.3 fL (7.4-10.4); Platelet Count 305 thou/uL (130-400); RBC Distribution Width 15.9 % (11.5-14.5); Red Blood Cell (RBC) Count 3.57 mill/uL (4.70-6.10); White Blood Cell (WBC) Count 6.9 thou/uL (4.8-10.8)
[2019-11-08 04:40] LABS: Anion Gap 11 mmol/L (10-20); BUN (Urea Nitrogen) 54 mg/dL (8.4-25.7); Calc. Creatinine Clearance 41 mL/min (70-130); Calcium 8.6 mg/dL (7.8-10.44); Carbon Dioxide 27 mmol/L (22-29); Chloride 104 mmol/L (98-107); Estimated GFR-MDRD 31; Glucose 109 mg/dL (70-105); Magnesium 2.2 mg/dL (1.6-2.6); Potassium 4.3 mmol/L (3.5-5.1); Sodium 138 mmol/L (136-145)
[2019-11-08] MEDS: Isosorbide Dinitrate 20 MG TAB PO SCH ×3 (05:34→21:29)
[2019-11-08] MEDS: hydrALAZINE 25 MG TAB PO SCH ×3 (05:35→21:28)
[2019-11-08] MEDS: Amlodipine 10 MG TAB PO SCH (07:36)
[2019-11-08] MEDS: Potassium Chloride 10 MEQ TAB PO SCH ×2 (07:36→17:19)
[2019-11-08] MEDS: Aspirin Chewable 81 MG TAB PO SCH (07:36)
[2019-11-08] MEDS: Carvedilol 6.25 MG TAB PO SCH ×2 (07:37→21:21)
[2019-11-08] MEDS: Digoxin 0.125 MG TAB PO SCH (07:37)
[2019-11-08] MEDS: Magnesium Oxide 400 MG TAB PO SCH (07:38)
[2019-11-08] MEDS: pyridOXINE 50 MG (B6) TAB PO SCH (07:38)
[2019-11-08] MEDS: Tamsulosin HCl 0.4 MG CAP PO SCH (07:38)
[2019-11-08] MEDS: Heparin 5,000 UNITS/ML VIAL SC SCH ×3 (07:39→21:22)
[2019-11-08] MEDS: DOBUTamine 500 mg/250 ml 500 MG in Premix Bag 1 BAG IVPB SCH ×2 (09:34→23:34)
[2019-11-08] MEDS ORDERED: Hydrochlorothiazide 25 MG TAB PO SCH (10:30)
--- NOTE | 2019-11-08 13:23 | PDOC.HOSPP ---
- Subjective Encounter Date: 11/08/19 Encounter Time: 10:15 Subjective: pt up in bed feels well but is having some twitching at times. - Objective Vital Signs & Weight: Vital Signs (12 hours) Temp Pulse Pulse Pulse Resp BP BP 11/08/19 11:07 87 87 166/70 H 175/77 H 11/08/19 11:02 97.9 F 88 18 11/08/19 07:26 98.2 F 89 14 11/08/19 05:35 89 11/08/19 04:00 99 F 89 18 BP BP Pulse Ox 11/08/19 11:07 11/08/19 11:02 170/74 H 98 11/08/19 07:26 166/72 H 97 11/08/19 05:35 11/08/19 04:00 170/72 H 95 Weight Admit Weight 250 lb Weight 187 lb 8 oz I&O: 11/07/19 11/08/19 11/09/19 06:59 06:59 06:59 Intake Total 2090 1853.6 Output Total 2500 3325 Balance -410 -9451.4 Result Diagrams: 11/08/19 04:02 11/08/19 04:02 Additional Labs: Accuchecks 11/08/19 11/08/19 11/07/19 12:03 05:57 20:32 POC Glucose 146 H 123 H 167 H 11/07/19 16:55 POC Glucose 177 H Hospitalist ROS - Review of Systems Respiratory: denies: cough, dry, shortness of breath, hemoptysis, SOB with excertion, pleuritic pain, sputum, wheezing, other Cardiovascular: denies: chest pain, palpitations, orthopnea, paroxysmal noc. dyspnea, edema, light headedness, other Gastrointestinal: denies: nausea, vomiting, abdominal pain, diarrhea, constipation, melena, hematochezia, other - Medication Medications: Active Medications Generic Name Dose Route Start Last Admin Trade Name Freq PRN Reason Stop Dose Admin Acetaminophen 650 mg 10/26/19 20:04 10/26/19 20:15 Tylenol PO 650 mg Q4H PRN Administration Headache/Fever or Pain Amlodipine Besylate 10 mg 10/31/19 09:00 11/08/19 07:36 Norvasc PO 10 mg DAILY JEN Administration Aspirin 81 mg 10/31/19 09:00 11/08/19 07:36 Aspirin Chewable PO 81 mg DAILY JEN Administration Carvedilol 12.5 mg 11/07/19 09:00 11/08/19 07:37 Coreg PO 12.5 mg BID JEN Administration Digoxin 0.125 mg 10/28/19 09:00 11/08/19 07:37 Lanoxin PO 0.125 mg QAM JEN Administration Ferrous Sulfate 325 mg 10/24/19 21:00 11/07/19 21:43 Feosol PO 325 mg Q2D JEN Administration Heparin Sodium (Porcine) 5,000 units 11/07/19 09:00 11/08/19 07:39 Heparin SC 5,000 units TID JEN Administration Hydralazine HCl 100 mg 11/04/19 14:00 11/08/19 05:35 Apresoline PO 100 mg Q8HR JEN Administration Dobutamine HCl/Dextrose 500 mg 250 mls @ 15.15 mls/hr 10/29/19 19:00 09:34 / Device IVPB 250 mls INF JEN Administration Protocol Milrinone Lactate 20 mg/ 100 mls @ 6.57 mls/hr 11/05/19 22:30 11/08/19 11:40 Sodium Chloride IVPB 100 mls INF JEN Administration Protocol 0.25 MCG/KG/MIN Insulin Human Regular 0 units 10/23/19 16:10 11/07/19 17:17 Humulin R SC 2 unit .MILD SLIDING SCALE PRN Administration Mild Correctional Scale Isosorbide Dinitrate 40 mg 11/05/19 14:00 11/08/19 05:34 Isordil PO 40 mg Q8HR JEN Administration Magnesium Oxide 800 mg 11/03/19 21:00 11/08/19 07:38 Magnesium Oxide PO 800 mg BID JEN Administration Ondansetron HCl 4 mg 10/27/19 11:19 10/27/19 21:38 Zofran IVP 4 mg Q6H PRN Administration Nausea/Vomiting Potassium Chloride 10 meq 11/03/19 17:00 11/08/19 07:36 Klor-Con 10 PO 10 meq BID-WM JEN Administration Pyridoxine HCl 50 mg 11/05/19 09:00 11/08/19 07:38 Vitamin B 6 PO 50 mg DAILY JEN Administration Sodium Chloride 10 ml 10/25/19 21:00 11/08/19 07:38 Flush - Normal Saline IVF 10 ml Q12HR JEN Administration Sodium Chloride 10 ml 10/25/19 09:41 11/03/19 06:13 Flush - Normal Saline IVF 10 ml PRN PRN Administration Saline Flush Tamsulosin HCl 0.4 mg 11/07/19 09:00 11/08/19 07:38 Flomax PO 0.4 mg DAILY JEN Administration - Exam Neck: negative: supple, symmetric, no JVD, no thyromegaly, no lymphadenopathy, no carotid bruit, JVD Heart: negative: RRR, no murmur, no gallops, no rubs, normal peripheral pulses, irregular, diminshed peripheral pulses, murmur present, II/IV, III/IV Respiratory - other findings: mild crackles to bases Gastrointestinal: negative: soft, non-tender, non-distended, normal bowel sounds , no palpable masses, no hepatomegaly, no splenomegaly, no bruit, no guarding, no rigidity, tender to palpation, distended, diminished bowl sounds, voluntary guarding Hosp A/P (1) CHF (congestive heart failure), NYHA class III Code(s): I50.9 - HEART FAILURE, UNSPECIFIED Status: Acute (2) Nonischemic cardiomyopathy Code(s): I42.8 - OTHER CARDIOMYOPATHIES Status: Acute (3) Stage 3b chronic kidney disease Code(s): N18.3 - CHRONIC KIDNEY DISEASE, STAGE 3 (MODERATE) Status: Acute (4) T2DM (type 2 diabetes mellitus) Status: Acute - Plan will follow along creatinine, He is on milronine and dobutamine. pt has been loosing weight. will continue current diuretics. will monitor electrolytes. hydrazine dose has been increased due to elevated bp. 11/01 pt's weight today was 201. continue current meds milronine and dobutamine. 11/02 pt's creatinine is worsening, his bnp has improved. He has lost a lot of weight his current weight is 195lbs. will discuss with HF to back off the lasix for now to avoid overdiuresis. 11/03 pt's bp meds have been increased. His lasix has been decreased. creatinine still on rise will monitor. vit b6 supp started. he has been having blurry vision from his right eye which started when he came to [facility]. MRI did not show any abnormality. pt is covering his right eye. He states blurry vision improves when his right eye is covered. 11/[address] Traore will hold his lasix for geovani. will continue dobutamine and milirone. consulted ophthalmology for his blurry vision. His mri did not indicate any abnormalities. 11/[address] traore who states that he wants to restart pt's lasix. He was off his dobutamine and milirone due to iv access. will montior. His creatinine is still very high. 11/06 pt given lasix today. will monitor electrolytes. bmp for today is pending. will continue to monitor his vitals and weight. 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 11/07 spoke with HF will start pt back on lasix in am. His creatinine improved. He has added hctz for his bp. pt up ambulating. Pt feels that magnesium is causing him to have some diarrhea at times. will hold off on mag for now.
--- NOTE | 2019-11-08 14:31 | PRG ---
DATE OF SERVICE: 11/08/2019 This is from [facility]. SUBJECTIVE: Mr. Carolina had a day of a large amount of diuresis. He received metolazone 2.5 followed by Lasix 100 mg once. He then produced a lots of urine. The actual amount was not kept. He said he felt good and was coming off; however, afterwards, he is still tired and a bit weak. He did feel kind of out of sorts this morning, but overall still well in comparison to 2 weeks ago. He did say that he was able to increase the walking distance. He again walked from his room all the way to the end of the zuleta and back. Overall, he believes that he is doing a little bit better every day, and he can feel that the fluid is coming off him. REVIEW OF SYSTEMS: GENERAL: There is no fever, chills, or productive cough. HEENT: There is no change in vision, hearing, or swallowing. PULMONARY: Breathing easier. Please see HPI. GI: He is eating well. : Please see HPI. NEUROLOGIC: There are no focal deficits or weaknesses. MUSCULOSKELETAL: He does not complain of joint pains. INTEGUMENT: He does not complain of rashes or skin breakdowns. MEDICATIONS: His current cardiac medications include: 1. Magnesium oxide 800 twice a day. 2. Dobutamine at 5 mcg/kg/minute. 3. Carvedilol 12.5 mg twice a day. 4. Digoxin at 0.125 mg every morning. 5. Milrinone at 0.25 mcg/kg daily. 6. Amlodipine at 10 mg daily. 7. Hydralazine at 100 mg q.8 hours. 8. Isosorbide dinitrate 40 mg q.8 hours. 9. Aspirin 81 mg daily. 10. Potassium currently at 10 mEq twice per day. OBJECTIVE: TELEMETRY: His telemetry was reviewed. He has maintained sinus rhythm. He has occasional PVC, but there is no concerning arrhythmia such as ventricular tachycardia. VITAL SIGNS: Heart rate 87, blood pressure 163/70. GENERAL: He is alert and conversational, resting comfortably in bed. HEENT: Show EOMI. Oropharynx is benign with moist mucosa without erythema. No exudate. NECK: JVP is still elevated. There are prominent carotid pulsations; however, his JVP is about 13 cm, there were distal as well as carotid pulsations. PULMONARY: Good air movement top one-half lungs; however, he still has bibasilar crackles. CARDIAC: Regular rate and rhythm. There is 3/6 holosystolic murmur at the apex with radiation to the left axilla. ABDOMEN: Soft, distended, but nontender. He still has some flank pitting edema. EXTREMITIES: Lower extremities; edema about his thighs is nearly gone. He still has about 3+ pitting edema from his feet to two-thirds width to his knees. It is much less than what it was before. The patient had a 7-pound weight decrease this 1 day. He went from 194 pounds to 187 pounds. ASSESSMENT: 53-year-old gentleman resides in [place] Heart Association class IV heart failure with reduced ejection fraction. It is a nonischemic cardiomyopathy with combined diastolic and systolic dysfunction. 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 He also has [id number] hypertension. Currently, combination of dobutamine at 5 mcg/kg/minute and milrinone at 0.25 mcg/kg/minute seemed to be sufficient to provide cardiac output to sustain diuresis. His creatinine has improved. His BUN has increased. He is still volume overloaded, but less so. We are starting to approach point of his dry weight. At this point, in order to preserve his renal function, we should convert to [id number] diuresis. We will also need some additional medication for better blood pressure control. Please see the following for recommendations. RECOMMENDATIONS: 1. Continue dobutamine at 5 mcg/kg/minute and milrinone at 0.25 mcg/kg/minute. 2. Add hydrochlorothiazide 25 mg daily, first dose now. This may be titrated up. This will provide blood pressure reduction in addition to all other antihypertensive medications. 3. Hold Lasix for today. 4. Start Lasix 100 mg IV every other day starting tomorrow. We will likely to continue this until his dry weight is reached. 5. Once the patient's dry weight is reached, we will need to make the conversion to oral medications only. Before we can get there, we will also need to ensure his renal function is good as possible. It has been a pleasure taking care of Mr. Carolina. If you have any questions, please give me a call. Job ID: [id number] MTDD
--- NOTE | 2019-11-08 17:45 | PDOC.FMACP ---
Advance Care Planning - Problem (1) Palliative care encounter Status: Acute Code(s): Z51.5 - ENCOUNTER FOR PALLIATIVE CARE (2) Anemia of chronic disease Status: Acute Code(s): D63.8 - ANEMIA IN OTHER CHRONIC DISEASES CLASSIFIED ELSEWHERE (3) CHF (congestive heart failure), NYHA class III Status: Acute Code(s): I50.9 - HEART FAILURE, UNSPECIFIED (4) Nonischemic cardiomyopathy Status: Acute Code(s): I42.8 - OTHER CARDIOMYOPATHIES (5) Stage 3b chronic kidney disease Status: Acute Code(s): N18.3 - CHRONIC KIDNEY DISEASE, STAGE 3 (MODERATE) (6) T2DM (type 2 diabetes mellitus) Status: Acute - Note Participants: patient, palliative care Summary: Advanced Care Planning was discussed. The diagnosis, prognosis and goals of care were discussed. Appropriate forms and documentation to accomplish the goals of care were discussed. All questions were answered. The Palliative Care Team will be engaged to assist with completion of any outstanding forms that are needed. Visited with patient at length, provided live review and that he is currently homeless, but hoping to live with one of his brothers for a period of time. Discussed that he currently wished to remain with full resuscitation measures. He confirmed he has one son, however wishes for his sister Dayana to be MPOA. Patient states if he did require to be intubated and on mechanical ventilation he would not desire a trach or PEG, encouraged to share wishes with his sister. Cayetano Perez RNelectrical test engineer to follow up with completion of paperwork. Palliative Care will sign off, please reconsult if we can be of further assistance.
[2019-11-08] MEDS: Ondansetron PF 4 MG/2 ML Vial IVP PRN (19:41)
[2019-11-08] MEDS: Milrinone Lactate/D5W 20 MG in Premix Bag 1 BAG IVPB SCH (21:40)
[2019-11-09] MEDS: Isosorbide Dinitrate 20 MG TAB PO SCH ×3 (05:49→21:37)
[2019-11-09] MEDS: hydrALAZINE 25 MG TAB PO SCH ×3 (05:49→21:36)
[2019-11-09] MEDS ORDERED: Furosemide 100 MG/10 ML VIAL SLOW IVP SCH ×2 (06:00→10:00)
[2019-11-09] MEDS: Digoxin 0.125 MG TAB PO SCH (07:59)
[2019-11-09] MEDS: Carvedilol 6.25 MG TAB PO SCH (08:00)
[2019-11-09] MEDS: Amlodipine 10 MG TAB PO SCH (08:00)
[2019-11-09] MEDS: pyridOXINE 50 MG (B6) TAB PO SCH (08:00)
[2019-11-09] MEDS: Tamsulosin HCl 0.4 MG CAP PO SCH (08:00)
[2019-11-09] MEDS: Aspirin Chewable 81 MG TAB PO SCH (08:00)
[2019-11-09] MEDS: Potassium Chloride 10 MEQ TAB PO SCH ×2 (08:00→16:43)
[2019-11-09] MEDS: Heparin 5,000 UNITS/ML VIAL SC SCH ×3 (08:01→21:37)
[2019-11-09] MEDS ORDERED: Hydrochlorothiazide 25 MG TAB PO SCH (09:00)
[2019-11-09 09:41] LABS: #Basophils 0.1 thou/uL (0.0-0.2); #Eosinphils 0.3 thou/uL (0.0-0.7); #Lymphocytes 1.5 thou/uL (1.20-3.40); #Monocytes 0.6 thou/uL (0.11-0.59); #Neutrophils 4.8 thou/uL (1.40-6.50); %Basophils 1.1 % (0.0-1.0); %Lymphocytes 20.2 % (21.0-51.0); %Neutrophils 66.8 % (42.0-75.0); Hemoglobin 8.6 g/dL (14.0-18.0); Mean Corpuscular HGB CONC 30.6 g/dL (32.0-36.0); Mean Corpuscular Hemoglobin 24.3 pg (27.0-31.0); Mean Corpuscular Volume 79.5 fL (78.0-98.0); Platelet Count 334 thou/uL (130-400); RBC Distribution Width 15.9 % (11.5-14.5); Red Blood Cell (RBC) Count 3.54 mill/uL (4.70-6.10); White Blood Cell (WBC) Count 7.2 thou/uL (4.8-10.8)
[2019-11-09 09:54] LABS: ALT (SGPT) 10 U/L (8-55); AST (SGOT) 17 U/L (5-34); Albumin 2.8 g/dL (3.5-5.0); Alkaline Phosphatase 81 U/L (40-110); Anion Gap 10 mmol/L (10-20); BUN (Urea Nitrogen) 52 mg/dL (8.4-25.7); Bilirubin, Total 0.3 mg/dL (0.2-1.2); Calc. Creatinine Clearance 38 mL/min (70-130); Calcium 8.5 mg/dL (7.8-10.44); Carbon Dioxide 27 mmol/L (22-29); Chloride 104 mmol/L (98-107); Estimated GFR-MDRD 29; Globulin 3.2 g/dL (2.4-3.5); Glucose 133 mg/dL (70-105); Magnesium 2.1 mg/dL (1.6-2.6); Potassium 4.8 mmol/L (3.5-5.1); Sodium 136 mmol/L (136-145)
[2019-11-09] MEDS: Carvedilol 25 MG TAB PO SCH ×2 (10:10→21:36)
--- NOTE | 2019-11-09 10:10 | PRG ---
DATE OF SERVICE: 11/09/2019 This is from [facility]. SUBJECTIVE: Mr. Niranjan Carolina had a good day. Without IV Lasix, he was still able to put out quite a bit of urine. He has good strength. He was able to walk down to the end of zuleta and come back. He feels generally well. He is able to eat well. He also slept well. REVIEW OF SYSTEMS: GENERAL: There is no fever, chills, or cough. HEENT : There is no change in vision, hearing, or swallowing. He still complains of right-sided eye blindness. PULMONARY: Breathing easier. CARDIOVASCULAR: No palpitations or syncope. GI: He is eating well. : He is urinating well. NEUROLOGIC: There is no focal weakness or deficits. MUSCULOSKELETAL: There is no complaint of joint pains. INTEGUMENT: There is no skin breakdown. MEDICATIONS: His cardiac medications include; 1. Dobutamine 5 mcg/kg per minute IVGTT. 2. Milrinone 0.25 mcg/kg IVGTT. 3. Amlodipine 10 mg daily. 4. Aspirin 81 mg daily. 5. Potassium 10 mEq twice a day. 6. Hydralazine 100 mg q.8 hours. 7. Isosorbide dinitrate 40 mg q.8 hours. 8. Carvedilol 12.5 mg twice a day. 9. Tamsulosin 0.4 mg daily. 10. Furosemide 100 mg, meant to be every other day. 11. Hydrochlorothiazide 25 mg daily. PHYSICAL EXAMINATION: VITAL SIGNS: Telemetry was reviewed. He had one short run of nonsustained VT of about 8 beats at about 11:00 last night. He is generally in sinus rhythm. His latest recorded vitals are, heart rate 90, blood pressure 175/74. GENERAL: He is alert and conversational, resting comfortably in bed. HEENT: Showed EOMI. Oropharynx benign. Moist mucosa. NECK: JVP is still high, there is a strong carotid pulsation, but his JVP is lower than that, at approximately 13 cm. PULMONARY: Good air movement on top half of lungs; however, he still has bibasilar crackles. CARDIAC: Regular rate and rhythm. There is 3/6 holosystolic murmur at apex with radiation to the left axilla. ABDOMEN: Soft, nontender, but distended. There is still flank edema. EXTREMITIES: Lower extremities, there is minimal amount of thigh edema now. He still has about 2+ edema from feet to below his knee that is about 0.5 to 1 cm. His weight increased to 187 pounds and 8 ounces to 188 pounds and 1.6 ounce. This is excellent, where he is able to self sustain without diuretics. ASSESSMENT: 53-year-old gentleman, resides in [place] heart Association class 4 heart failure with reduced ejection fraction. This is a nonischemic cardiomyopathy with a combination of systolic and diastolic dysfunctions. Even though, he has improved greatly, he is still volume overloaded, this volume overload has been decreasing. We will need to continue inotropic support for reaching a dry weight. Currently, there is no lab. So, consequently, we cannot give diuresis or adjust his medication until we know his electrolytes and renal functions. Ideally, the switching from dobutamine to pure milrinone will be good because that will lower the blood pressure more and decrease arrhythmia. However, not knowing the renal function, we cannot do this, and furthermore, we do not know his electrolytes. Consequently, it is important that his electrolytes to be checked everyday. Please see the following for recommendations. Recommendations 1. Hold Lasix 100 mg IV; if creatinine is the same or better, go ahead and give it. If not, need to replan. 2. Go ahead and do a noncontrast CT of the chest to look for pulmonary fibrosis to ensure that he does not have pulmonary fibrosis. He could have pulmonary fibrosis. He diuresed over 30 to 40 pounds, this is not likely that this will be pulmonary edema. If it is, then we need to know. 3. We will increase carvedilol to 25 mg twice a day. We will hold off on amiodarone for now. If he has recurrence of nonsustained ventricular tachycardia, then we will need to start amiodarone tomorrow. Follow-up: Patient's Cr increased, therefore, recommend the following - Increase dobutamine to 6 mcg/kg/min ivgtt - hold Lasix today It has been my pleasure taking care of Mr. Carolina. If you have any questions, please give me a call. Job ID: [id number] [facility]
--- NOTE | 2019-11-09 10:46 | CT ---
CT chest noncontrast HISTORY: Chest pain. Dyspnea. Iodine allergy. FINDINGS: Lungs are well-inflated. No interstitial thickening. No lobar consolidation or mass. Minima l fluid in the dependent portion of the left hemithorax. Airways are patent. Lack of contrast limits evaluation of the soft tissues. Old bilateral rib fractures are apparent. Lef t upper extremity PICC partially visualized. Small amount of pericardial fluid. There is increased density throughout the subcutaneous fat. IMPRESSION : No evidence of pulmonary fibrosis or other acute pulmonary abnormality. Very small left pleural effusion and pericardial effusion. Cause is not evident. Diffuse edema throughout the subcutaneous tissues.
[2019-11-09] MEDS: Milrinone Lactate/D5W 20 MG in Premix Bag 1 BAG IVPB SCH (12:52)
--- NOTE | 2019-11-09 13:58 | PDOC.HOSPP ---
- Subjective Encounter Date: 11/09/19 Encounter Time: 13:58 Subjective: pt up in bed no - Objective Vital Signs & Weight: Vital Signs (12 hours) Temp Pulse Resp BP BP BP Pulse Ox 11/09/19 11:00 97.8 F 85 18 173/77 H 95 11/09/19 08:00 90 175/74 H 11/09/19 07:59 90 11/09/19 07:12 98.7 F 90 16 171/74 H 95 11/09/19 05:49 88 11/09/19 03:56 98.2 F 89 18 157/69 H 99 Weight Admit Weight 250 lb Weight 188 lb 1.6 oz I&O: 11/08/19 11/09/19 11/10/19 06:59 06:59 06:59 Intake Total 1853.6 1499.4 Output Total 3325 1450 Balance -1471.4 49.4 Result Diagrams: 11/09/19 09:25 11/09/19 09:25 Additional Labs: Accuchecks 11/09/19 11/09/19 11/08/19 11:03 05:56 20:15 POC Glucose 142 H 111 H 139 H 11/08/19 16:35 POC Glucose 169 H Hospitalist ROS - Review of Systems Respiratory: denies: cough, dry, shortness of breath, hemoptysis, SOB with excertion, pleuritic pain, sputum, wheezing, other Cardiovascular: denies: chest pain, palpitations, orthopnea, paroxysmal noc. dyspnea, edema, light headedness, other Gastrointestinal: denies: nausea, vomiting, abdominal pain, diarrhea, constipation, melena, hematochezia, other - Medication Medications: Active Medications Generic Name Dose Route Start Last Admin Trade Name Freq PRN Reason Stop Dose Admin Acetaminophen 650 mg 10/26/19 20:04 10/26/19 20:15 Tylenol PO 650 mg Q4H PRN Administration Headache/Fever or Pain Amlodipine Besylate 10 mg 10/31/19 09:00 11/09/19 08:00 Norvasc PO 10 mg DAILY JEN Administration Aspirin 81 mg 10/31/19 09:00 11/09/19 08:00 Aspirin Chewable PO 81 mg DAILY JEN Administration Carvedilol 25 mg 11/09/19 09:00 11/09/19 10:10 Coreg PO Not Given Q12HR [facility] Digoxin 0.125 mg 10/28/19 09:00 11/09/19 07:59 Lanoxin PO 0.125 mg QAM JEN Administration Ferrous Sulfate 325 mg 10/24/19 21:00 11/07/19 21:43 Feosol PO 325 mg Q2D JEN Administration Heparin Sodium (Porcine) 5,000 units 11/07/19 09:00 11/09/19 08:01 Heparin SC 5,000 units TID JEN Administration Hydralazine HCl 100 mg 11/04/19 14:00 11/09/19 05:49 Apresoline PO 100 mg Q8HR JEN Administration Dobutamine HCl/Dextrose 500 mg 250 mls @ 18.19 mls/hr 10/29/19 19:00 23:34 / Device IVPB 250 mls INF JEN Administration Protocol 6 MCG/KG/MIN Milrinone Lactate/Dextrose 20 100 mls @ 6.57 mls/hr 11/08/19 21:30 11/09/19 12:52 mg/ Device IVPB 100 mls INF JEN Administration Protocol 0.25 MCG/KG/MIN Insulin Human Regular 0 units 10/23/19 16:10 11/07/19 17:17 Humulin R SC 2 unit .MILD SLIDING SCALE PRN Administration Mild Correctional Scale Isosorbide Dinitrate 40 mg 11/05/19 14:00 11/09/19 05:49 Isordil PO 40 mg Q8HR JEN Administration Magnesium Oxide 800 mg 11/03/19 21:00 11/08/19 07:38 Magnesium Oxide PO 800 mg BID JEN Administration Ondansetron HCl 4 mg 10/27/19 11:19 11/08/19 19:41 Zofran IVP 4 mg Q6H PRN Administration Nausea/Vomiting Potassium Chloride 10 meq 11/03/19 17:00 11/09/19 08:00 Klor-Con 10 PO 10 meq BID-WM JEN Administration Pyridoxine HCl 50 mg 11/05/19 09:00 11/09/19 08:00 Vitamin B 6 PO 50 mg DAILY JEN Administration Sodium Chloride 10 ml 10/25/19 21:00 11/09/19 08:01 Flush - Normal Saline IVF 10 ml Q12HR JEN Administration Sodium Chloride 10 ml 10/25/19 09:41 11/03/19 06:13 Flush - Normal Saline IVF 10 ml PRN PRN Administration Saline Flush Tamsulosin HCl 0.4 mg 11/07/19 09:00 11/09/19 08:00 Flomax PO 0.4 mg DAILY JEN Administration - Exam Neck: negative: supple, symmetric, no JVD, no thyromegaly, no lymphadenopathy, no carotid bruit, JVD Heart: negative: RRR, no murmur, no gallops, no rubs, normal peripheral pulses, irregular, diminshed peripheral pulses, murmur present, II/IV, III/IV Respiratory - other findings: mild crackles to bases Gastrointestinal: negative: soft, non-tender, non-distended, normal bowel sounds , no palpable masses, no hepatomegaly, no splenomegaly, no bruit, no guarding, no rigidity, tender to palpation, distended, diminished bowl sounds, voluntary guarding Extremities: 2+ LE edema Hosp A/P (1) CHF (congestive heart failure), NYHA class III Code(s): I50.9 - HEART FAILURE, UNSPECIFIED Status: Acute (2) Nonischemic cardiomyopathy Code(s): I42.8 - OTHER CARDIOMYOPATHIES Status: Acute (3) Stage 3b chronic kidney disease Code(s): N18.3 - CHRONIC KIDNEY DISEASE, STAGE 3 (MODERATE) Status: Acute (4) T2DM (type 2 diabetes mellitus) Status: Acute - Plan will follow along creatinine, He is on milronine and dobutamine. pt has been loosing weight. will continue current diuretics. will monitor electrolytes. hydrazine dose has been increased due to elevated bp. 11/01 pt's weight today was 201. continue current meds milronine and dobutamine. 11/02 pt's creatinine is worsening, his bnp has improved. He has lost a lot of weight his current weight is 195lbs. will discuss with HF to back off the lasix for now to avoid overdiuresis. 11/03 pt's bp meds have been increased. His lasix has been decreased. creatinine still on rise will monitor. vit b6 supp started. he has been having blurry vision from his right eye which started when he came to [facility]. MRI did not show any abnormality. pt is covering his right eye. He states blurry vision improves when his right eye is covered. 11/[address] Traore will hold his lasix for geovani. will continue dobutamine and milirone. consulted ophthalmology for his blurry vision. His mri did not indicate any abnormalities. 11/[address] traore who states that he wants to restart pt's lasix. He was off his dobutamine and milirone due to iv access. will montior. His creatinine is still very high. 11/06 pt given lasix today. will monitor electrolytes. bmp for today is pending. will continue to monitor his vitals and weight. 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 11/07 spoke with HF will start pt back on lasix in am. His creatinine improved. He has added hctz for his bp. pt up ambulating. Pt feels that magnesium is causing him to have some diarrhea at times. will hold off on mag for now. 11/08 pt's bp still on the high side. his hctz was discontinued due to his elevated bp. pt had DQ tacos today. I have advised him against it and he stated that he will not do it again. His weight is on the downward trend.
[2019-11-09] MEDS: DOBUTamine 500 mg/250 ml 500 MG in Premix Bag 1 BAG IVPB SCH (15:55)
[2019-11-09] MEDS: Insulin Regular 300 UNITS/3 ML VIAL SC PRN (16:43)
[2019-11-09] MEDS: Ferrous Sulfate 325 MG TAB PO SCH (21:37)
[2019-11-10] MEDS: Milrinone Lactate/D5W 20 MG in Premix Bag 1 BAG IVPB SCH (03:25)
[2019-11-10 04:28] LABS: #Basophils 0.1 thou/uL (0.0-0.2); #Eosinphils 0.3 thou/uL (0.0-0.7); #Lymphocytes 1.5 thou/uL (1.20-3.40); #Monocytes 0.7 thou/uL (0.11-0.59); #Neutrophils 4.8 thou/uL (1.40-6.50); %Basophils 0.9 % (0.0-1.0); %Eosinophils 3.9 % (0.0-10.0); %Lymphocytes 20.7 % (21.0-51.0); %Monocytes 8.9 % (0.0-10.0); %Neutrophils 65.6 % (42.0-75.0); Hemoglobin 8.6 g/dL (14.0-18.0); Mean Corpuscular HGB CONC 30.3 g/dL (32.0-36.0); Mean Corpuscular Hemoglobin 24.1 pg (27.0-31.0); Mean Corpuscular Volume 79.3 fL (78.0-98.0); Mean Platelet Volume 9.4 fL (7.4-10.4); Platelet Count 340 thou/uL (130-400); RBC Distribution Width 15.7 % (11.5-14.5); Red Blood Cell (RBC) Count 3.56 mill/uL (4.70-6.10); White Blood Cell (WBC) Count 7.3 thou/uL (4.8-10.8)
[2019-11-10 04:51] LABS: ALT (SGPT) 11 U/L (8-55); AST (SGOT) 19 U/L (5-34); Albumin 2.8 g/dL (3.5-5.0); Alkaline Phosphatase 87 U/L (40-110); Anion Gap 11 mmol/L (10-20); BUN (Urea Nitrogen) 51 mg/dL (8.4-25.7); Bilirubin, Total 0.3 mg/dL (0.2-1.2); Calc. Creatinine Clearance 38 mL/min (70-130); Calcium 8.4 mg/dL (7.8-10.44); Carbon Dioxide 26 mmol/L (22-29); Chloride 105 mmol/L (98-107); Estimated GFR-MDRD 29; Globulin 3.2 g/dL (2.4-3.5); Glucose 97 mg/dL (70-105); Magnesium 2.2 mg/dL (1.6-2.6); Potassium 5.1 mmol/L (3.5-5.1); Sodium 137 mmol/L (136-145)
[2019-11-10] MEDS: Isosorbide Dinitrate 20 MG TAB PO SCH ×3 (06:26→21:17)
[2019-11-10] MEDS: hydrALAZINE 25 MG TAB PO SCH ×3 (06:27→21:18)
[2019-11-10] MEDS: DOBUTamine 500 mg/250 ml 500 MG in Premix Bag 1 BAG IVPB SCH ×2 (06:35→23:06)
[2019-11-10] MEDS: Aspirin Chewable 81 MG TAB PO SCH (08:58)
[2019-11-10] MEDS: Digoxin 0.125 MG TAB PO SCH (08:58)
[2019-11-10] MEDS: Amlodipine 10 MG TAB PO SCH (08:58)
[2019-11-10] MEDS: Heparin 5,000 UNITS/ML VIAL SC SCH ×3 (08:58→21:17)
[2019-11-10] MEDS: Potassium Chloride 10 MEQ TAB PO SCH (08:58)
[2019-11-10] MEDS: Minoxidil 2.5 MG TAB PO SCH (08:59)
[2019-11-10] MEDS: Tamsulosin HCl 0.4 MG CAP PO SCH (08:59)
[2019-11-10] MEDS: Carvedilol 25 MG TAB PO SCH ×2 (08:59→21:18)
[2019-11-10] MEDS: pyridOXINE 50 MG (B6) TAB PO SCH (09:21)
[2019-11-10] MEDS ORDERED: Milrinone Lactate/D5W 20 MG in Premix Bag 1 BAG IVPB SCH (11:00)
[2019-11-10] MEDS ORDERED: Furosemide 100 MG/10 ML VIAL SLOW IVP SCH (11:00)
--- NOTE | 2019-11-10 15:26 | PDOC.HOSPP ---
- Subjective Encounter Date: 11/10/19 Encounter Time: 11:15 Subjective: pt up in bed got nauseated and threw up. - Objective Vital Signs & Weight: Vital Signs (12 hours) Temp Pulse Pulse Pulse Resp BP BP 11/10/19 15:05 98.0 F 75 16 11/10/19 14:04 77 144/65 H 11/10/19 11:35 93 94 146/65 H 11/10/19 11:07 98.4 F 78 16 11/10/19 08:58 89 11/10/19 07:38 98.2 F 95 20 11/10/19 06:27 93 11/10/19 04:00 98.2 F 92 18 BP BP BP Pulse Ox 11/10/19 15:05 137/64 96 11/10/19 14:04 11/10/19 11:35 137/62 11/10/19 11:07 150/64 H 95 11/10/19 08:58 11/10/19 07:38 169/73 H 96 11/10/19 06:27 11/10/19 04:00 173/76 H 94 L Weight Admit Weight 250 lb Weight 188 lb I&O: 11/09/19 11/10/19 11/11/19 06:59 06:59 06:59 Intake Total 1499.4 1636 Output Total 1450 3500 Balance 49.4 -1864 Result Diagrams: 11/10/19 04:15 11/10/19 04:15 Additional Labs: Accuchecks 11/10/19 11/09/19 11:07 16:32 POC Glucose 124 H 183 H Hospitalist ROS - Review of Systems Cardiovascular: denies: chest pain, palpitations, orthopnea, paroxysmal noc. dyspnea, edema, light headedness, other Gastrointestinal: reports: nausea, vomiting Genitourinary: denies: dysuria, frequency, incontinence, hematuria, retention, other Musculoskeletal: denies: neck pain, shoulder pain, arm pain, back pain, hand pain, leg pain, foot pain, other - Medication Medications: Active Medications Generic Name Dose Route Start Last Admin Trade Name Freq PRN Reason Stop Dose Admin Acetaminophen 650 mg 10/26/19 20:04 10/26/19 20:15 Tylenol PO 650 mg Q4H PRN Administration Headache/Fever or Pain Amlodipine Besylate 10 mg 10/31/19 09:00 11/10/19 08:58 Norvasc PO 10 mg DAILY JEN Administration Aspirin 81 mg 10/31/19 09:00 11/10/19 08:58 Aspirin Chewable PO 81 mg DAILY JEN Administration Carvedilol 25 mg 11/09/19 09:00 11/10/19 08:59 Coreg PO 25 mg Q12HR JEN Administration Ferrous Sulfate 325 mg 10/24/19 21:00 11/09/19 21:37 Feosol PO 325 mg Q2D JEN Administration Heparin Sodium (Porcine) 5,000 units 11/07/19 09:00 11/10/19 14:04 Heparin SC 5,000 units TID JEN Administration Hydralazine HCl 100 mg 11/04/19 14:00 11/10/19 14:04 Apresoline PO 100 mg Q8HR JEN Administration Insulin Human Regular 0 units 10/23/19 16:10 11/09/19 16:43 Humulin R SC 2 unit .MILD SLIDING SCALE PRN Administration Mild Correctional Scale Isosorbide Dinitrate 40 mg 11/05/19 14:00 11/10/19 14:04 Isordil PO 40 mg Q8HR JEN Administration Magnesium Oxide 800 mg 11/03/19 21:00 11/08/19 07:38 Magnesium Oxide PO 800 mg BID JEN Administration Minoxidil 2.5 mg 11/10/19 09:00 11/10/19 08:59 Minoxidil PO 2.5 mg DAILY JEN Administration Ondansetron HCl 4 mg 10/27/19 11:19 11/08/19 19:41 Zofran IVP 4 mg Q6H PRN Administration Nausea/Vomiting Pyridoxine HCl 50 mg 11/05/19 09:00 11/10/19 09:21 Vitamin B 6 PO 50 mg DAILY JEN Administration Sodium Chloride 10 ml 10/25/19 21:00 11/10/19 09:05 Flush - Normal Saline IVF 10 ml Q12HR JEN Administration Sodium Chloride 10 ml 10/25/19 09:41 11/03/19 06:13 Flush - Normal Saline IVF 10 ml PRN PRN Administration Saline Flush Tamsulosin HCl 0.4 mg 11/07/19 09:00 11/10/19 08:59 Flomax PO 0.4 mg DAILY JEN Administration - Exam Heart: negative: RRR, no murmur, no gallops, no rubs, normal peripheral pulses, irregular, diminshed peripheral pulses, murmur present, II/IV, III/IV Respiratory: negative: CTAB, no wheezes, no rales, no ronchi, normal chest expansion, no tachypnea, normal percussion, rales, rhonchi, tachypneic, wheezes Gastrointestinal: negative: soft, non-tender, non-distended, normal bowel sounds , no palpable masses, no hepatomegaly, no splenomegaly, no bruit, no guarding, no rigidity, tender to palpation, distended, diminished bowl sounds, voluntary guarding Extremities: 2+ LE edema Hosp A/P (1) CHF (congestive heart failure), NYHA class III Code(s): I50.9 - HEART FAILURE, UNSPECIFIED Status: Acute (2) Nonischemic cardiomyopathy Code(s): I42.8 - OTHER CARDIOMYOPATHIES Status: Acute (3) Stage 3b chronic kidney disease Code(s): N18.3 - CHRONIC KIDNEY DISEASE, STAGE 3 (MODERATE) Status: Acute (4) T2DM (type 2 diabetes mellitus) Status: Acute - Plan will follow along creatinine, He is on milronine and dobutamine. pt has been loosing weight. will continue current diuretics. will monitor electrolytes. hydrazine dose has been increased due to elevated bp. 11/01 pt's weight today was 201. continue current meds milronine and dobutamine. 11/02 pt's creatinine is worsening, his bnp has improved. He has lost a lot of weight his current weight is 195lbs. will discuss with HF to back off the lasix for now to avoid overdiuresis. 11/03 pt's bp meds have been increased. His lasix has been decreased. creatinine still on rise will monitor. vit b6 supp started. he has been having blurry vision from his right eye which started when he came to [facility] [place]. MRI did not show any abnormality. pt is covering his right eye. He states blurry vision improves when his right eye is covered. 11/[address] Traore will hold his lasix for geovani. will continue dobutamine and milirone. consulted ophthalmology for his blurry vision. His mri did not indicate any abnormalities. 11/[address] traore who states that he wants to restart pt's lasix. He was off his dobutamine and milirone due to iv access. will montior. His creatinine is still very high. 11/06 pt given lasix today. will monitor electrolytes. bmp for today is pending. will continue to monitor his vitals and weight. 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 11/07 spoke with HF will start pt back on lasix in am. His creatinine improved. He has added hctz for his bp. pt up ambulating. Pt feels that magnesium is causing him to have some diarrhea at times. will hold off on mag for now. 11/08 pt's bp still on the high side. his hctz was discontinued due to his elevated bp. pt had DQ tacos today. I have advised him against it and he stated that he will not do it again. His weight is on the downward trend. 11/09 will stop dig spoke with Hf physician. will hold lasix for now. pt's weight has not changed. his creatinine is still elevated.
[2019-11-10] MEDS: Ondansetron PF 4 MG/2 ML Vial IVP PRN (18:12)
[2019-11-11 04:28] LABS: #Basophils 0.1 thou/uL (0.0-0.2); #Eosinphils 0.2 thou/uL (0.0-0.7); #Lymphocytes 1.4 thou/uL (1.20-3.40); #Monocytes 0.5 thou/uL (0.11-0.59); #Neutrophils 3.6 thou/uL (1.40-6.50); %Basophils 0.9 % (0.0-1.0); %Eosinophils 4.1 % (0.0-10.0); %Lymphocytes 23.9 % (21.0-51.0); %Monocytes 9.1 % (0.0-10.0); Hemoglobin 8.1 g/dL (14.0-18.0); Mean Corpuscular Hemoglobin 23.7 pg (27.0-31.0); Mean Platelet Volume 9.2 fL (7.4-10.4); Platelet Count 319 thou/uL (130-400); RBC Distribution Width 15.6 % (11.5-14.5); Red Blood Cell (RBC) Count 3.42 mill/uL (4.70-6.10); White Blood Cell (WBC) Count 5.8 thou/uL (4.8-10.8)
[2019-11-11 04:43] LABS: ALT (SGPT) 10 U/L (8-55); AST (SGOT) 16 U/L (5-34); Albumin 2.7 g/dL (3.5-5.0); Alkaline Phosphatase 84 U/L (40-110); Anion Gap 10 mmol/L (10-20); BUN (Urea Nitrogen) 52 mg/dL (8.4-25.7); Bilirubin, Total Less than 0.2 mg/dL (0.2-1.2); Calc. Creatinine Clearance 37 mL/min (70-130); Calcium 8.2 mg/dL (7.8-10.44); Carbon Dioxide 24 mmol/L (22-29); Chloride 106 mmol/L (98-107); Estimated GFR-MDRD 28; Glucose 98 mg/dL (70-105); Magnesium 2.3 mg/dL (1.6-2.6); Protein, Total 5.7 g/dL (6.0-8.3); Sodium 135 mmol/L (136-145)
[2019-11-11] MEDS: Isosorbide Dinitrate 20 MG TAB PO SCH ×3 (05:49→21:47)
[2019-11-11] MEDS: hydrALAZINE 25 MG TAB PO SCH ×3 (05:49→21:47)
--- NOTE | 2019-11-11 06:40 | PRG ---
DATE OF SERVICE: 11/10/2019 SERVICE: Advanced Heart Failure Cardiology Consulting Service. SUBJECTIVE: Mr. Niranjan Carolina had a variable day. He was able to walk all the way to the end of the [place] and come back. When he tried again this morning, he felt really nauseated and threw up. He had to go back in bed. He has had oqbdfjupj-np-lwmbday hypertension and minoxidil was added. Due to high creatinine, IV Lasix was held for another day. Carvedilol was also increased. Combination of minoxidil and carvedilol seemed to help to decrease the blood pressure. This morning it had been lowest at 110, went up about 140. REVIEW OF SYSTEMS: GENERAL: There is no fever, chills, or productive cough. HEENT: There is no change in vision, hearing, or swallowing. 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 PULMONARY: He is breathing easier. CARDIAC: There is no palpitation or syncope. GI: Please see HPI. : He said he put out large volume of urine yesterday. NEUROLOGIC: There are no focal deficits or weaknesses. INTEGUMENT: There is no new breakdown. MUSCULOSKELETAL: There is no joint pain. CURRENT CARDIAC MEDICATIONS: 1. Dobutamine at 6 mcg/kg per minute. 2. Milrinone 0.25 mcg/kg per minute. 3. Carvedilol 25 mg twice a day. 4. Digoxin at 0.125 daily. 5. Amlodipine 10 mg daily. 6. Hydralazine 100 mg q.8 hours. 7. Isosorbide dinitrate 40 mg q.8 hours. 8. Aspirin 81 mg daily. 9. Potassium chloride 10 mEq twice a day. 10. Minoxidil 2.5 mg daily. 11. Hydrochlorothiazide 25 mg daily. PHYSICAL EXAMINATION: VITAL SIGNS: Telemetry was reviewed. He is in sinus rhythm. There is no concerning arrhythmia. His current vitals are heart rate 86 and blood pressure 143/67. GENERAL: He is alert, conversational, reclining comfortably in bed. He is able to maintain long sentences without being short of breath. HEENT: Shows EOMI. He does have some mild temporalis wasting, this is chronic. His oropharynx is benign with moist mucosa without erythema nor exudate. NECK: JVP is elevated. There is strong carotid pulsation, JVP is about 12 to 13 cm. LUNGS: Clear to auscultation top two-thirds. There are bibasilar crackles, but this is diminished in comparison to yesterday. CARDIAC: Regular rate and rhythm. There is 3/6 holosystolic murmur at the apex with radiation to the left axilla. EXTREMITIES: Lower extremities; he has 2+ pitting edema that is between 0.5 to 1 cm pitting edema from his feet up to his knees. There is no edema in his thighs. Edema around his abdomen is now gone. He has loose skin just about everywhere. The patient's weight, he has 2-pound loss in weight. He decreased from 188 pounds down to 186 pounds today. I and O, in the system he is recorded that he has net loss of 1.86 L in one day. He urinated 3.5 L yesterday, that occurred with IV Lasix. LABORATORY VALUES: Sodium 137, potassium 5.1, bicarbonate 26, BUN 51, and creatinine at 2.81. His albumin is 2.8. His magnesium is 2.2. ASSESSMENT: 53-year-old gentleman has [place] Heart Association class 4 heart failure with reduced ejection fraction and resides at [facility] stage-D. This is a nonischemic cardiomyopathy. He has both systolic and diastolic dysfunction. He also suffers from chronic renal syndrome. He also has eqozgtjee-en-kwgcrcb hypertension. He self diuresed 3.5 L yesterday, thus we should hold back on IV diuretics today. We will also need to investigate if he has a renal artery stenosis as the cause of this severe hypertension. Currently dobutamine 6 mcg/kg per minute and milrinone 0.25 mcg/ kg per minute is providing sufficient cardiac output to maintain urine output even without diuretics. Thus, this is sufficient cardiac output. Unfortunately, this cannot be maintained for long-term. Ideally, he will be a candidate for left ventricle assist device as a transition to heart transplant. Without insurance, this is not possible. So, he is in a difficult situation. Stopping the inotrope will cause a quick demise. Please see the following for recommendations. RECOMMENDATIONS: 1. Continue dobutamine 6 mcg/kg per minute at weight 195 pounds. 2. Continue milrinone at 0.25 mcg/kg per minute at weight 195 pounds. 3. Please do renal ultrasound to see if there is renal artery stenosis. This will be arterial Doppler involving the aorta, afferent and efferent renal arteries. 4. It is okay to discontinue digoxin if there is a concern for digitoxicity. 5. We will need to hold IV Lasix for another day. We will recheck tomorrow morning. We will likely restart IV Lasix tomorrow morning. 6. Please ask Discharge Planning or Social Service to come by to help the patient to apply and get Medicaid. This is a very difficult case. He can be salvaged if he has insurance. It has been a pleasure taking care of Mr. Niranjan Carolina. Job ID: [id number] MTDD
--- NOTE | 2019-11-11 08:39 | ULT ---
Renal sonogram with duplex evaluation HISTORY: Hypertension. FINDINGS: Right kidney measures up to 9.9 cm and the left 12.0 cm. Each has a normal appearance witho ut mass or hydronephrosis. Good color and spectral Doppler flow within the abdominal aorta and renal arteries. No elevated peak systolic velocities are evident. Resistive index associated with the arcuate arteries of the right kidney is 0.8 and the left kidney 0 .9. IMPRESSION : Normal appearance of the kidneys. No evidence of obstruction. No sonographic evidence of renal artery stenosis. Elevated resistive index associated with the arcuate arteries of each kidney is nonspecific, often in dicative of chronic medical renal disease.
[2019-11-11] MEDS: Ondansetron PF 4 MG/2 ML Vial IVP PRN (08:46)
[2019-11-11] MEDS: Minoxidil 2.5 MG TAB PO SCH (09:27)
[2019-11-11] MEDS: Carvedilol 25 MG TAB PO SCH ×2 (09:27→21:47)
[2019-11-11] MEDS: Aspirin Chewable 81 MG TAB PO SCH (09:28)
[2019-11-11] MEDS: pyridOXINE 50 MG (B6) TAB PO SCH (09:28)
[2019-11-11] MEDS: Tamsulosin HCl 0.4 MG CAP PO SCH (09:28)
[2019-11-11] MEDS: Hydrochlorothiazide 25 MG TAB PO SCH (09:28)
[2019-11-11] MEDS: Heparin 5,000 UNITS/ML VIAL SC SCH ×3 (09:28→21:48)
[2019-11-11] MEDS: Amlodipine 10 MG TAB PO SCH (09:28)
[2019-11-11] MEDS: Potassium Chloride 10 MEQ TAB PO SCH (09:28)
[2019-11-11] MEDS: Albumin 25% 25 GM/100 ML BOT IVPB SCH ×2 (11:43→21:48)
[2019-11-11] MEDS ORDERED: Furosemide 100 MG/10 ML VIAL SLOW IVP SCH ×2 (12:00→13:30)
--- NOTE | 2019-11-11 12:24 | PRG ---
DATE OF SERVICE: 11/11/2019 SERVICE: Advanced Heart Failure Consulting Service. SUBJECTIVE: Mr. Carolina had a variable day. He said he ate a sandwich with a rotten onion that made him sick. He said he has been nauseated and sick for at least 2 days now from that. His walking distance has decreased. He is only able to walk half way down the [place] and come back. He said his nausea and weakness prevented him from walking much farther. He said he is breathing easily, was able to sleep overnight. REVIEW OF SYSTEMS: GENERAL: See HPI. HEENT: There is no change in vision, hearing, or swallowing. He has chronic blindness of the right eye. PULMONARY: Please see HPI. CARDIAC: There is no palpitation or syncope. GI: See HPI. : He is able to urinate well, but his urine output has greatly decreased yesterday. CARDIAC MEDICATIONS: Include: 1. Amlodipine 10 mg daily. 2. Aspirin 81 mg daily. 3. Carvedilol 25 mg b.i.d. 4. Dobutamine currently at 6 mcg/kg/min at the weight 195 pounds. 5. Hydralazine 100 mg q.8 hours. 6. Hydrochlorothiazide 25 mg daily. 7. Isosorbide dinitrate 40 mg daily. 8. Magnesium oxide 800 mg twice a day. 9. Milrinone 0.25 mcg/kg/minute. 10. Minoxidil 2.5 mg daily. 11. Potassium chloride 10 mEq daily. PHYSICAL EXAMINATION: Telemetry was reviewed. It is a sinus rhythm with very few PVC. There is no concerning arrhythmia. VITAL SIGNS: Latest vital signs are heart rate 83, blood pressure 151/69. GENERAL: He is alert, conversational, resting comfortably in bed. HEENT: EOMI. Oropharynx benign without erythema. No exudate. NECK: He has large carotid pulsations. His JVP is behind that. It is about 13 cm with positive hepatojugular reflux. PULMONARY: He has bilateral crackles. It is about half way up. This is worse than yesterday. ABDOMEN: Soft, but some diffuse discomfort with palpation. EXTREMITIES: He has 1+ edema in his thighs, about 2+ edema from feet up to his ankles. It is a lot better than several days ago, but still there is edema. LABORATORY VALUES: Sodium 135, potassium 5, BUN at 52, creatinine 2.86. His albumin is 2.7. ASSESSMENT: 53-year-old gentleman resides in [place] Heart Association class 4 and AHA stage-D heart failure with reduced ejection fraction. This is a nonischemic cardiomyopathy. He has combined systolic and diastolic dysfunctions. He remains volume overloaded. His volume overload is worsening as evidenced by increased crackles. He may have a mild case of food poisoning. At this point, there is no choice but to give him diuretics. This may still improve renal function because decreasing his CVP would allow increased pressure to the renal arteries to increase renal flow. Please see the following for recommendations. Of note, ultrasound did not demonstrate any evidence of renal artery stenosis. Rather, ultrasound demonstrated existence of long standing intrinsic renal disease with high resistance, likely due to combination of long standing diabetes and hypertension. RECOMMENDATIONS: 1. Increase milrinone to 0.375 mcg/kg/minute. This was attempted to increase cardiac output and lower his peripheral resistance. 2. Give albumin 25 g IV q.12 hours for 2 days. This has increased osmolarity in the blood stream to pull more fluid from the tissue. 3. Lasix 100 mg IV one dose today. Please give this about 3 hours after milrinone has increased to 0.375. This is aimed to pull some fluid off. 4. Please continue to do daily standing weight. 5. Continue to use his weight 195 pounds for his drips. 6. Please help the patient to apply for Medicaid if at all possible. He has very little options for him to survive. He will need advanced heart failure therapy, without insurance there is no way to obtain that. 7. I will attempt to ask [facility] to see if they have any possible compassionate care for this case. Otherwise, he will become a hospice case. Conversation with Lana Thomas in [place] took place. Unfortunately, they are not allowed to do any unfunded LVAD or any unfunded advanced heart failure therapy. Thus, the only option left for Mr. Carolina is hospice care. It has been a pleasure taking care of Mr. Carolina. If you have any questions, please give me a call. Job ID: [id number] MTDD
[2019-11-11] MEDS: Milrinone Lactate/D5W 20 MG in Premix Bag 1 BAG IVPB SCH (21:46)
[2019-11-11] MEDS: Ferrous Sulfate 325 MG TAB PO SCH (21:47)
[2019-11-11] MEDS: Magnesium Oxide 400 MG TAB PO SCH ×2 (21:48→21:54)
[2019-11-12 04:20] LABS: #Eosinphils 0.2 thou/uL (0.0-0.7); #Lymphocytes 1.4 thou/uL (1.20-3.40); #Monocytes 0.4 thou/uL (0.11-0.59); #Neutrophils 3.6 thou/uL (1.40-6.50); %Basophils 0.3 % (0.0-1.0); %Eosinophils 3.3 % (0.0-10.0); %Lymphocytes 25.7 % (21.0-51.0); %Monocytes 7.5 % (0.0-10.0); %Neutrophils 63.2 % (42.0-75.0); Mean Corpuscular HGB CONC 30.4 g/dL (32.0-36.0); Mean Corpuscular Hemoglobin 23.9 pg (27.0-31.0); Mean Corpuscular Volume 78.6 fL (78.0-98.0); Mean Platelet Volume 9.2 fL (7.4-10.4); Platelet Count 295 thou/uL (130-400); RBC Distribution Width 15.5 % (11.5-14.5); Red Blood Cell (RBC) Count 3.35 mill/uL (4.70-6.10); White Blood Cell (WBC) Count 5.6 thou/uL (4.8-10.8)
[2019-11-12 04:47] LABS: ALT (SGPT) 10 U/L (8-55); AST (SGOT) 16 U/L (5-34); Albumin 3.2 g/dL (3.5-5.0); Alkaline Phosphatase 84 U/L (40-110); Anion Gap 11 mmol/L (10-20); BUN (Urea Nitrogen) 54 mg/dL (8.4-25.7); Bilirubin, Total 0.2 mg/dL (0.2-1.2); Calc. Creatinine Clearance 34 mL/min (70-130); Calcium 8.5 mg/dL (7.8-10.44); Carbon Dioxide 25 mmol/L (22-29); Chloride 106 mmol/L (98-107); Estimated GFR-MDRD 26; Globulin 2.9 g/dL (2.4-3.5); Glucose 85 mg/dL (70-105); Magnesium 2.3 mg/dL (1.6-2.6); Protein, Total 6.1 g/dL (6.0-8.3); Sodium 137 mmol/L (136-145)
[2019-11-12] MEDS: Isosorbide Dinitrate 20 MG TAB PO SCH ×3 (05:39→22:46)
[2019-11-12] MEDS: hydrALAZINE 25 MG TAB PO SCH ×3 (05:39→22:46)
[2019-11-12] MEDS: Milrinone Lactate/D5W 20 MG in Premix Bag 1 BAG IVPB SCH ×2 (09:01→19:36)
[2019-11-12] MEDS: Hydrochlorothiazide 25 MG TAB PO SCH (09:02)
[2019-11-12] MEDS: Minoxidil 2.5 MG TAB PO SCH (09:04)
[2019-11-12] MEDS: Heparin 5,000 UNITS/ML VIAL SC SCH ×4 (09:04→20:59)
[2019-11-12] MEDS: Magnesium Oxide 400 MG TAB PO SCH ×2 (09:04→20:59)
[2019-11-12] MEDS: pyridOXINE 50 MG (B6) TAB PO SCH (09:05)
[2019-11-12] MEDS: Carvedilol 25 MG TAB PO SCH (09:05)
[2019-11-12] MEDS: Ondansetron PF 4 MG/2 ML Vial IVP PRN ×2 (09:05→18:36)
[2019-11-12] MEDS: Tamsulosin HCl 0.4 MG CAP PO SCH (09:05)
[2019-11-12] MEDS: Amlodipine 10 MG TAB PO SCH (09:05)
[2019-11-12] MEDS: Potassium Chloride 10 MEQ TAB PO SCH (09:05)
[2019-11-12] MEDS: Aspirin Chewable 81 MG TAB PO SCH (09:06)
[2019-11-12] MEDS: Albumin 25% 25 GM/100 ML BOT IVPB SCH (09:07)
[2019-11-12] MEDS: DOBUTamine 500 mg/250 ml 500 MG in Premix Bag 1 BAG IVPB SCH (09:23)
[2019-11-12 11:58] VITALS: BMI 28.9
--- NOTE | 2019-11-12 12:23 | PRG ---
DATE OF SERVICE: 11/12/2019 SUBJECTIVE: Mr. Carolina had a variable day. He felt strong enough as he was able to walk. However, he felt nauseated and required Zofran. He did not respond that well to Lasix 100 mg IV. He did have increased urine output, but not enough to be net negative, this despite of increasing the milrinone dosage. Much more information about him was revealed yesterday after multiple conversations with his sister, Dayana Zaman. Mr. Carolina has bipolar disorder. Apparently, he was unstable at home. He left his second . On that day, he broke all four car windows and slashed the tires before he left. They are not , but he has been and estranged since last fall. His still works as a nurse at [employer]. Since then, the patient has been staying with his brothers and sisters. He recently stayed at a brother's house in [place]. That is how he came about at [place]. Exploration of potential family support was also done. Essentially, no one can really stay with him for every day for 6 weeks of time. Telephone conversations made with potential sources of compassionate care for left ventricular assist device. At this point, that option is no longer possible. The last center that would do that said that they cannot do that anymore due to financial reasons. So without insurance, Mr. Carolina has no options left. REVIEW OF SYSTEMS: GENERAL: There is no fever, chills, or cough. 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 PULMONARY: He is not short of breath. GI: See HPI. He has been nauseated. : He does urinate well on his own. His urine output has been decreasing lately even with the resumption of diuretics. NEUROLOGIC: There are no new focal deficits or weaknesses. MUSCULOSKELETAL: There are no new complaints of joint pains, muscle achiness. INTEGUMENT: There are no complaints of breakdown. PHYSICAL EXAMINATION: Telemetry was review. There is no tachyarrhythmia. He is in sinus rhythm. VITAL SIGNS: Last set of physical exam, heart rate 86 and blood pressure about 138/70. He is at 184 pounds today. GENERAL: He is alert and conversational, able to talk without being short of breath, but he does have temporalis wasting. HEENT: Show EOMI. There is no scleral icterus. He is not jaundiced. Oropharynx benign with moist mucosa without erythema or exudate. NECK: His JVP still elevated. He has strong carotid pulsations, behind that you can see about 12-13 cm high. PULMONARY: He has bilateral basilar crackles. This is a little bit less than yesterday. CARDIAC: Regular rate and rhythm with 3/6 holosystolic murmur at the apex with radiation to the left axilla. ABDOMEN: Soft, nontender. Positive bowel sounds. EXTREMITIES: Lower extremity, he has decreased edema. There is essentially no edema in his thighs now. He has about 1+ edema from the feet to two-thirds the way up. This is the best yet. LABORATORY DATA: Sodium 137, potassium 5, BUN 54, creatinine 3.06, is a bit worse than yesterday but not terribly so. ASSESSMENT: 53-year-old gentleman resides in [place] Heart Association stage D and [place] Heart Association class 4 heart failure with reduced ejection fraction. This is a nonischemic cardiomyopathy. He has both systolic and diastolic dysfunction. He has a strong family history of congenital heart failure with early . It is likely an inherited mutation. Unfortunately, he has reached a point where inotropic support is no longer effective. 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 He is still volume overloaded, but is less so. At this point, the only possible way for him to live is urgent left ventricular assist device implantation as a bridge to transplant for the future. However, this is not a possible option. He does not have insurance. After contacting the only center who will do compassionate care, the center had strongly said to me that option is no longer available. So at this point, the only option left for this patient is hospice. Family meeting was called today. His sister, Dayana Zaman was in, that his other siblings were on the phone, and his son who was also on telephone conference, this was witnessed by the primary care for the hospitalization along with our heart failure coordinators and nurses. The entire situation was explained to the patient and family. They understood the situation and they agreed with the hospice approach. So consequently at this point, I will maximize cardiac output and keep him as comfortable as possible as outpatient hospice is being arranged. RECOMMENDATIONS: 1. Increase dobutamine to 7.5 mcg/kg/minute at 195 pounds. 2. Decrease milrinone to 0.25 mcg/kg/minute at 195 pounds. I will decrease this over next 2 days. Milrinone is renally cleared. This will become toxic very quickly. So, we will consolidate a single drip to dobutamine if hospice cannot be provided. 3. We will hold diuretics today. He is at the lowest weight that he ever has been. This is dry ever it has been. I will like to give him the best renal function possible before discharge, that way he would have easier time. 4. For next 2 days, tomorrow we will restart large IV diuretics to give him the dry as possible. 5. The day after, we will likely to use torsemide 40 mg p.o. twice a day to keep him dry. 6. It is unknown how long he can survive. I suspect less than three months. It has been a pleasure taking care of Mr. Carolina. I am very sorry that it is coming to this point. I will continue until he is discharged for hospice. If you have any questions, please give me a call. Job ID: [id number] MTDD
--- NOTE | 2019-11-12 18:20 | PDOC.HOSPP ---
- Subjective Encounter Date: 11/11/19 Encounter Time: 10:45 Subjective: pt up in bed feels tired. - Objective Vital Signs & Weight: Vital Signs (12 hours) Temp Pulse Resp BP Pulse Ox 11/12/19 15:42 98.6 F 97 14 161/72 H 94 L 11/12/19 12:34 94 11/12/19 11:40 98.7 F 94 14 168/76 H 94 L 11/12/19 07:45 99.5 F 95 14 139/64 96 Weight Admit Weight 250 lb Weight 184 lb 8 oz I&O: 11/11/19 11/12/19 11/13/19 06:59 06:59 06:59 Intake Total 1190 2110 Output Total 825 1900 Balance 365 210 Result Diagrams: 11/12/19 04:07 11/12/19 04:07 Additional Labs: Accuchecks 11/12/19 11/12/19 11/11/19 10:41 06:08 20:34 POC Glucose 111 H 102 160 H 11/11/19 06:29 POC Glucose 105 Hospitalist ROS - Review of Systems Cardiovascular: denies: chest pain, palpitations, orthopnea, paroxysmal noc. dyspnea, edema, light headedness, other Gastrointestinal: denies: nausea, vomiting, abdominal pain, diarrhea, constipation, melena, hematochezia, other Genitourinary: denies: dysuria, frequency, incontinence, hematuria, retention, other - Medication Medications: Active Medications Generic Name Dose Route Start Last Admin Trade Name Freq PRN Reason Stop Dose Admin Acetaminophen 650 mg 10/26/19 20:04 10/26/19 20:15 Tylenol PO 650 mg Q4H PRN Administration Headache/Fever or Pain Amlodipine Besylate 10 mg 10/31/19 09:00 11/12/19 09:05 Norvasc PO 10 mg DAILY JEN Administration Aspirin 81 mg 10/31/19 09:00 11/12/19 09:06 Aspirin Chewable PO 81 mg DAILY JEN Administration Carvedilol 25 mg 11/09/19 09:00 11/12/19 09:05 Coreg PO 25 mg Q12HR JEN Administration Ferrous Sulfate 325 mg 10/24/19 21:00 11/11/19 21:47 Feosol PO 325 mg Q2D JEN Administration Furosemide 100 mg 11/11/19 12:00 11/11/19 12:52 Lasix SLOW IVP Not Given Q2D [facility] Heparin Sodium (Porcine) 5,000 units 11/07/19 09:00 11/12/19 16:50 Heparin SC Not Given TID [facility] Hydralazine HCl 100 mg 11/04/19 14:00 11/12/19 12:34 Apresoline PO 100 mg Q8HR JEN Administration Hydrochlorothiazide 25 mg 11/11/19 09:00 11/12/19 09:02 Hydrochlorothiazide PO 25 mg DAILY JEN Administration Dobutamine HCl/Dextrose 500 mg 250 mls @ 15.93 mls/hr 11/10/19 11:00 09:23 / Device IVPB 250 mls INF JEN Administration 6 MCG/KG/MIN Milrinone Lactate/Dextrose 20 100 mls @ 9.96 mls/hr 11/11/19 10:30 11/12/19 09:01 mg/ Device IVPB 100 mls INF JEN Administration 0.375 MCG/KG/MIN Insulin Human Regular 0 units 10/23/19 16:10 11/09/19 16:43 Humulin R SC 2 unit .MILD SLIDING SCALE PRN Administration Mild Correctional Scale Isosorbide Dinitrate 40 mg 11/05/19 14:00 11/12/19 12:35 Isordil PO 40 mg Q8HR [facility] Administration Magnesium Oxide 800 mg 11/03/19 21:00 11/12/19 09:04 Magnesium Oxide PO Not Given BID [facility] Minoxidil 2.5 mg 11/10/19 09:00 11/12/19 09:04 Minoxidil PO 2.5 mg DAILY JEN Administration Ondansetron HCl 4 mg 10/27/19 11:19 11/12/19 09:05 Zofran IVP 4 mg Q6H PRN Administration Nausea/Vomiting Potassium Chloride 10 meq 11/11/19 08:00 11/12/19 09:05 Klor-Con 10 PO 10 meq QAM-WM JEN Administration Pyridoxine HCl 50 mg 11/05/19 09:00 11/12/19 09:05 Vitamin B 6 PO 50 mg DAILY JEN Administration Sodium Chloride 10 ml 10/25/19 21:00 11/12/19 09:06 Flush - Normal Saline IVF 10 ml Q12HR JEN Administration Sodium Chloride 10 ml 10/25/19 09:41 11/03/19 06:13 Flush - Normal Saline IVF 10 ml PRN PRN Administration Saline Flush Tamsulosin HCl 0.4 mg 11/07/19 09:00 11/12/19 09:05 Flomax PO 0.4 mg DAILY JEN Administration - Exam Neck: negative: supple, symmetric, no JVD, no thyromegaly, no lymphadenopathy, no carotid bruit, JVD Heart: negative: RRR, no murmur, no gallops, no rubs, normal peripheral pulses, irregular, diminshed peripheral pulses, murmur present, II/IV, III/IV Respiratory - other findings: crackles to bases Gastrointestinal: negative: soft, non-tender, non-distended, normal bowel sounds , no palpable masses, no hepatomegaly, no splenomegaly, no bruit, no guarding, no rigidity, tender to palpation, distended, diminished bowl sounds, voluntary guarding Hosp A/P (1) CHF (congestive heart failure), NYHA class III Code(s): I50.9 - HEART FAILURE, UNSPECIFIED Status: Acute (2) Nonischemic cardiomyopathy Code(s): I42.8 - OTHER CARDIOMYOPATHIES Status: Acute (3) Stage 3b chronic kidney disease Code(s): N18.3 - CHRONIC KIDNEY DISEASE, STAGE 3 (MODERATE) Status: Acute (4) T2DM (type 2 diabetes mellitus) Status: Acute - Plan will follow along creatinine, He is on milronine and dobutamine. pt has been loosing weight. will continue current diuretics. will monitor electrolytes. hydrazine dose has been increased due to elevated bp. 11/01 pt's weight today was 201. continue current meds milronine and dobutamine. 11/02 pt's creatinine is worsening, his bnp has improved. He has lost a lot of weight his current weight is 195lbs. will discuss with HF to back off the lasix for now to avoid overdiuresis. 11/03 pt's bp meds have been increased. His lasix has been decreased. creatinine still on rise will monitor. vit b6 supp started. he has been having blurry vision from his right eye which started when he came to [facility]. MRI did not show any abnormality. pt is covering his right eye. He states blurry vision improves when his right eye is covered. 11/[address] Traore will hold his lasix for geovani. will continue dobutamine and milirone. consulted ophthalmology for his blurry vision. His mri did not indicate any abnormalities. 11/[address] traore who states that he wants to restart pt's lasix. He was off his dobutamine and milirone due to iv access. will montior. His creatinine is still very high. 11/06 pt given lasix today. will monitor electrolytes. bmp for today is pending. will continue to monitor his vitals and weight. 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 11/07 spoke with HF will start pt back on lasix in am. His creatinine improved. He has added hctz for his bp. pt up ambulating. Pt feels that magnesium is causing him to have some diarrhea at times. will hold off on mag for now. 11/08 pt's bp still on the high side. his hctz was discontinued due to his elevated bp. pt had DQ tacos today. I have advised him against it and he stated that he will not do it again. His weight is on the downward trend. 11/09 will stop dig spoke with Hf physician. will hold lasix for now. pt's weight has not changed. his creatinine is still elevated. 11/10 Dr Traore to talk with compassionate care for possible LVAD. pt will talk with family. will have a family meeting in am. If not hospice is an option.
--- NOTE | 2019-11-12 18:24 | PDOC.HOSPP ---
- Subjective Encounter Date: 11/12/19 Encounter Time: 12:30 Subjective: pt up in bed family at bedside. - Objective Vital Signs & Weight: Vital Signs (12 hours) Temp Pulse Resp BP Pulse Ox 11/12/19 15:42 98.6 F 97 14 161/72 H 94 L 11/12/19 12:34 94 11/12/19 11:40 98.7 F 94 14 168/76 H 94 L 11/12/19 07:45 99.5 F 95 14 139/64 96 Weight Admit Weight 250 lb Weight 184 lb 8 oz I&O: 11/11/19 11/12/19 11/13/19 06:59 06:59 06:59 Intake Total 1190 2110 Output Total 825 1900 Balance 365 210 Result Diagrams: 11/12/19 04:07 11/12/19 04:07 Additional Labs: Accuchecks 11/12/19 11/12/19 11/11/19 10:41 06:08 20:34 POC Glucose 111 H 102 160 H 11/11/19 06:29 POC Glucose 105 Hospitalist ROS - Review of Systems Cardiovascular: denies: chest pain, palpitations, orthopnea, paroxysmal noc. dyspnea, edema, light headedness, other Gastrointestinal: denies: nausea, vomiting, abdominal pain, diarrhea, constipation, melena, hematochezia, other Genitourinary: denies: dysuria, frequency, incontinence, hematuria, retention, other - Medication Medications: Active Medications Generic Name Dose Route Start Last Admin Trade Name Freq PRN Reason Stop Dose Admin Acetaminophen 650 mg 10/26/19 20:04 10/26/19 20:15 Tylenol PO 650 mg Q4H PRN Administration Headache/Fever or Pain Amlodipine Besylate 10 mg 10/31/19 09:00 11/12/19 09:05 Norvasc PO 10 mg DAILY JEN Administration Aspirin 81 mg 10/31/19 09:00 11/12/19 09:06 Aspirin Chewable PO 81 mg DAILY JEN Administration Carvedilol 25 mg 11/09/19 09:00 11/12/19 09:05 Coreg PO 25 mg Q12HR JEN Administration Ferrous Sulfate 325 mg 10/24/19 21:00 11/11/19 21:47 Feosol PO 325 mg Q2D JEN Administration Furosemide 100 mg 11/11/19 12:00 11/11/19 12:52 Lasix SLOW IVP Not Given Q2D [facility] Heparin Sodium (Porcine) 5,000 units 11/07/19 09:00 11/12/19 16:50 Heparin SC Not Given TID [facility] Hydralazine HCl 100 mg 11/04/19 14:00 11/12/19 12:34 Apresoline PO 100 mg Q8HR JEN Administration Hydrochlorothiazide 25 mg 11/11/19 09:00 11/12/19 09:02 Hydrochlorothiazide PO 25 mg DAILY JEN Administration Dobutamine HCl/Dextrose 500 mg 250 mls @ 15.93 mls/hr 11/10/19 11:00 09:23 / Device IVPB 250 mls INF JEN Administration 6 MCG/KG/MIN Milrinone Lactate/Dextrose 20 100 mls @ 9.96 mls/hr 11/11/19 10:30 11/12/19 09:01 mg/ Device IVPB 100 mls INF JEN Administration 0.375 MCG/KG/MIN Insulin Human Regular 0 units 10/23/19 16:10 11/09/19 16:43 Humulin R SC 2 unit .MILD SLIDING SCALE PRN Administration Mild Correctional Scale Isosorbide Dinitrate 40 mg 11/05/19 14:00 11/12/19 12:35 Isordil PO 40 mg Q8HR [facility] Administration Magnesium Oxide 800 mg 11/03/19 21:00 11/12/19 09:04 Magnesium Oxide PO Not Given BID [facility] Minoxidil 2.5 mg 11/10/19 09:00 11/12/19 09:04 Minoxidil PO 2.5 mg DAILY JEN Administration Ondansetron HCl 4 mg 10/27/19 11:19 11/12/19 09:05 Zofran IVP 4 mg Q6H PRN Administration Nausea/Vomiting Potassium Chloride 10 meq 11/11/19 08:00 11/12/19 09:05 Klor-Con 10 PO 10 meq QAM-WM JEN Administration Pyridoxine HCl 50 mg 11/05/19 09:00 11/12/19 09:05 Vitamin B 6 PO 50 mg DAILY JEN Administration Sodium Chloride 10 ml 10/25/19 21:00 11/12/19 09:06 Flush - Normal Saline IVF 10 ml Q12HR JEN Administration Sodium Chloride 10 ml 10/25/19 09:41 11/03/19 06:13 Flush - Normal Saline IVF 10 ml PRN PRN Administration Saline Flush Tamsulosin HCl 0.4 mg 11/07/19 09:00 11/12/19 09:05 Flomax PO 0.4 mg DAILY JEN Administration - Exam Neck: negative: supple, symmetric, no JVD, no thyromegaly, no lymphadenopathy, no carotid bruit, JVD Heart: negative: RRR, no murmur, no gallops, no rubs, normal peripheral pulses, irregular, diminshed peripheral pulses, murmur present, II/IV, III/IV Respiratory - other findings: crackles to bases Gastrointestinal: negative: soft, non-tender, non-distended, normal bowel sounds , no palpable masses, no hepatomegaly, no splenomegaly, no bruit, no guarding, no rigidity, tender to palpation, distended, diminished bowl sounds, voluntary guarding Hosp A/P (1) CHF (congestive heart failure), NYHA class III Code(s): I50.9 - HEART FAILURE, UNSPECIFIED Status: Acute (2) Nonischemic cardiomyopathy Code(s): I42.8 - OTHER CARDIOMYOPATHIES Status: Acute (3) Stage 3b chronic kidney disease Code(s): N18.3 - CHRONIC KIDNEY DISEASE, STAGE 3 (MODERATE) Status: Acute (4) T2DM (type 2 diabetes mellitus) Status: Acute - Plan will follow along creatinine, He is on milronine and dobutamine. pt has been loosing weight. will continue current diuretics. will monitor electrolytes. hydrazine dose has been increased due to elevated bp. 11/01 pt's weight today was 201. continue current meds milronine and dobutamine. 11/02 pt's creatinine is worsening, his bnp has improved. He has lost a lot of weight his current weight is 195lbs. will discuss with HF to back off the lasix for now to avoid overdiuresis. 11/03 pt's bp meds have been increased. His lasix has been decreased. creatinine still on rise will monitor. vit b6 supp started. he has been having blurry vision from his right eye which started when he came [facility]. MRI did not show any abnormality. pt is covering his right eye. He states blurry vision improves when his right eye is covered. 11/[address] Traore will hold his lasix for geovani. will continue dobutamine and milirone. consulted ophthalmology for his blurry vision. His mri did not indicate any abnormalities. 11/[address] traore who states that he wants to restart pt's lasix. He was off his dobutamine and milirone due to iv access. will montior. His creatinine is still very high. 11/06 pt given lasix today. will monitor electrolytes. bmp for today is pending. will continue to monitor his vitals and weight. 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 11/07 spoke with HF will start pt back on lasix in am. His creatinine improved. He has added hctz for his bp. pt up ambulating. Pt feels that magnesium is causing him to have some diarrhea at times. will hold off on mag for now. 11/08 pt's bp still on the high side. his hctz was discontinued due to his elevated bp. pt had DQ tacos today. I have advised him against it and he stated that he will not do it again. His weight is on the downward trend. 11/09 will stop dig spoke with Hf physician. will hold lasix for now. pt's weight has not changed. his creatinine is still elevated. 11/10 Dr Traore to talk with compassionate care for possible LVAD. pt will talk with family. will have a family meeting in am. If not hospice is an option. 11/11 unfortunately pt no more compassionate care LVAD are allowed per Dr Traore. pt will need to go with hospice.
[2019-11-12] MEDS ORDERED: ALPRAZolam 0.25 MG TAB PO SCH (19:15)
[2019-11-12] MEDS: cloNIDine 0.1 MG TAB PO PRN (19:23)
[2019-11-12] MEDS: Carvedilol 6.25 MG TAB PO SCH (20:43)
[2019-11-12] MEDS: Amiodarone 200 MG TAB PO SCH (20:43)
[2019-11-13] MEDS: DOBUTamine 500 mg/250 ml 500 MG in Premix Bag 1 BAG IVPB SCH ×2 (00:26→14:54)
[2019-11-13 04:05] LABS: #Basophils 0.1 thou/uL (0.0-0.2); #Eosinphils 0.2 thou/uL (0.0-0.7); #Lymphocytes 1.4 thou/uL (1.20-3.40); #Monocytes 0.4 thou/uL (0.11-0.59); #Neutrophils 4.2 thou/uL (1.40-6.50); %Basophils 0.8 % (0.0-1.0); %Eosinophils 3.6 % (0.0-10.0); %Lymphocytes 22.6 % (21.0-51.0); %Monocytes 6.6 % (0.0-10.0); %Neutrophils 66.4 % (42.0-75.0); Hemoglobin 8.5 g/dL (14.0-18.0); Mean Corpuscular HGB CONC 30.4 g/dL (32.0-36.0); Mean Corpuscular Hemoglobin 23.8 pg (27.0-31.0); Mean Corpuscular Volume 78.1 fL (78.0-98.0); Mean Platelet Volume 9.5 fL (7.4-10.4); Platelet Count 300 thou/uL (130-400); RBC Distribution Width 15.8 % (11.5-14.5); Red Blood Cell (RBC) Count 3.58 mill/uL (4.70-6.10); White Blood Cell (WBC) Count 6.3 thou/uL (4.8-10.8)
[2019-11-13 04:27] LABS: ALT (SGPT) 9 U/L (8-55); AST (SGOT) 16 U/L (5-34); Alkaline Phosphatase 86 U/L (40-110); Anion Gap 11 mmol/L (10-20); BUN (Urea Nitrogen) 48 mg/dL (8.4-25.7); Bilirubin, Total 0.2 mg/dL (0.2-1.2); Calc. Creatinine Clearance 35 mL/min (70-130); Calcium 8.3 mg/dL (7.8-10.44); Carbon Dioxide 22 mmol/L (22-29); Chloride 107 mmol/L (98-107); Estimated GFR-MDRD 28; Glucose 81 mg/dL (70-105); Magnesium 2.2 mg/dL (1.6-2.6); Potassium 4.9 mmol/L (3.5-5.1); Sodium 135 mmol/L (136-145)
[2019-11-13] MEDS: Isosorbide Dinitrate 20 MG TAB PO SCH ×3 (06:19→22:46)
[2019-11-13] MEDS: hydrALAZINE 25 MG TAB PO SCH ×3 (06:19→22:46)
[2019-11-13] MEDS: Amiodarone 200 MG TAB PO SCH ×2 (10:13→20:31)
[2019-11-13] MEDS: pyridOXINE 50 MG (B6) TAB PO SCH (10:13)
[2019-11-13] MEDS: Minoxidil 2.5 MG TAB PO SCH (10:14)
[2019-11-13] MEDS: Aspirin Chewable 81 MG TAB PO SCH (10:14)
[2019-11-13] MEDS: Amlodipine 10 MG TAB PO SCH (10:14)
[2019-11-13] MEDS: Tamsulosin HCl 0.4 MG CAP PO SCH (10:15)
[2019-11-13] MEDS: Carvedilol 6.25 MG TAB PO SCH ×2 (10:15→20:31)
[2019-11-13] MEDS: Heparin 5,000 UNITS/ML VIAL SC SCH ×3 (10:16→20:31)
[2019-11-13] MEDS: Magnesium Oxide 400 MG TAB PO SCH ×2 (10:16→20:35)
[2019-11-13] MEDS: Potassium Chloride 10 MEQ TAB PO SCH (10:18)
[2019-11-13] MEDS: Ondansetron PF 4 MG/2 ML Vial IVP PRN (12:40)
[2019-11-13] MEDS: Milrinone Lactate/D5W 20 MG in Premix Bag 1 BAG IVPB SCH (12:40)
[2019-11-13] MEDS: cloNIDine 0.1 MG TAB PO PRN (12:40)
--- NOTE | 2019-11-13 12:57 | PRG ---
DATE OF SERVICE: 11/13/2019 SERVICE: [facility]. SUBJECTIVE: Mr. Niranjan Carolina had a good 24 hours improvement. He started with nausea and vomiting. Then, we had an extensive family meeting, where his situation was explained. Due to lack of insurance, the only option left for him is hospice. The family understood the situation and accepted that is the only possible way to go. Of note, he could have potential; however, due to his actions in the past, he has estranged from his and made it difficult for the entire extended family. Milrinone was titrated down to 0.25 mcg/kg/minute. The dobutamine was increased to 7.5 mcg/kg/minute and carvedilol was reduced to 12.5 mg twice per day. This is changed to optimize his contractility. His cardiac myocyte does not have enough cyclic AMP really to allow the milrinone to work. He responded well to this combination. He had increased urine output and has self diuresed. However, he did encounter short runs of nonsustained ventricular tachycardia. Consequently, amiodarone 200 mg twice a day was started. Since then, he has been feeling well , able to sleep overnight. REVIEW OF SYSTEMS: GENERAL: There is no fever, chills, or productive cough. HEENT: He has right eye blindness but no change in hearing or swallowing. PULMONARY: He is not short of breath. CARDIOVASCULAR: He denies palpitations or syncope. GI: His nausea and vomiting have abated. He was able to eat a light breakfast today. : He urinated well. NEUROLOGIC: There are no focal deficits or weaknesses. MUSCULOSKELETAL: There is no complaint of joint pains or muscle pains. INTEGUMENT: There are no complaints of skin breakdown. MEDICATIONS: His current cardiac medications include, 1. Dobutamine at 7.5 mcg/kg/minute at weight of 195 pounds. 2. Milrinone at 0.25 mcg/kg/minute at weight of 195 pounds. 3. Amiodarone at 200 mg twice a day. 4. Amlodipine at 10 mg daily. 5. Aspirin at 81 mg daily. 6. Carvedilol at 12.5 mg twice a day. 7. Clonidine 0.1 mg q.6 hours p.r.n. for blood pressure over 180. 8. Hydralazine 100 mg q.8 hours. 9. Isosorbide dinitrate 40 mg q.8 hours. 10. Magnesium oxide 800 mg twice a day. 11. Potassium chloride at 10 mEq daily. 12. Tamsulosin, which is Flomax is 0.4 mg daily. PHYSICAL EXAMINATION: Telemetry was reviewed. Between 5 and 6 p.m. last night, he had several runs of ventricular tachycardia, the longest were about 10 beats each. Amiodarone was started and his nonsustained ventricular tachycardia went away. VITAL SIGNS: His current set of vitals are heart rate 82, blood pressure 155/ 72. GENERAL: He is alert and conversational, sitting comfortably in bed. HEENT: Show EOMI. Oropharynx is benign with moist mucosa without erythema nor exudate. NECK: He has a strong carotid pulsation but behind that he can see JVP about 13 cm with positive hepatojugular reflux. PULMONARY: He still has bilateral basilar crackles at lower 1/3 of the lungs. CARDIAC: Regular rate and rhythm with a loud 3/6 holosystolic murmur at the apex with radiation to the left axilla. ABDOMEN: Soft, nontender. Positive bowel sounds. There is still slight flank edema. EXTREMITIES: Lower extremities, there is no more thigh edema. He only has 1+ edema from feet to about 2/[address] way up toward the knee, this is an improvement. LABORATORY VALUES: Reviewed. It show that BUN has decreased from 54 down to 48 and creatinine has decreased from 3.06 down to 2.92. ASSESSMENT: 53-year-old gentleman resides in [place] Heart Association stage D and also [place] Heart Association class 4 heart failure with reduced ejection fraction. This is a nonischemic cardiomyopathy as evident with multiple family members having nonischemic cardiomyopathy and early deaths. This current formulation of dobutamine at 7.5 mcg/kg/minute and milrinone at 0.25 mcg/minute has increased cardiac output sufficiently to cause self diuresis and improvement in his renal function. At this point, while waiting for hospice, I will leave on this combination. The aim is to provide as much volume relief and will cover the renal function as much as possible. When the hospice has been arranged, we will need to titrate off the drip over about a two-day period. Please see the following for detailed recommendations. RECOMMENDATIONS: 1. Leave dobutamine at 7.5 mcg/kg/minute at 195 pounds. 2. Leave milrinone at 0.25 mcg/kg/minute at 195 pounds. This is to allow the cyclic AMP to remain that has been stimulated by dobutamine. This will augment the effect of dobutamine. 3. Leave this reduction of carvedilol at 12.5 mg twice a day. 4. We will leave off diuretics for now. This will allow him to self diurese and improve on renal function as much as possible. 5. With hospice arranged, then we will titrate off with inotropic drips over a two-day period. At that point, we will initiate oral diuretics of torsemide 40 mg daily. It has been a pleasure of taking care of Mr. Carolina. If you have any questions, please give me a call. Job ID: [id number] MTDD
--- NOTE | 2019-11-13 15:05 | PDOC.HOSPP ---
- Subjective Encounter Date: 11/13/19 Encounter Time: 15:01 Subjective: pt up in bed no complains. - Objective Vital Signs & Weight: Vital Signs (12 hours) Temp Pulse Resp BP BP Pulse Ox 11/13/19 12:05 97.8 F 81 13 192/88 H 99 11/13/19 07:06 84 18 156/70 H 95 11/13/19 06:19 95 177/79 H 11/13/19 03:53 98.9 F 97 20 166/74 H 94 L Weight Admit Weight 250 lb Weight 179 lb 12.8 oz I&O: 11/12/19 11/13/19 11/14/19 06:59 06:59 06:59 Intake Total 2110 1440 Output Total 1900 2300 Balance 210 -860 Result Diagrams: 11/15/19 04:25 11/15/19 04:25 Additional Labs: Accuchecks 11/13/19 11/13/19 10:34 05:54 POC Glucose 115 H 84 Hospitalist ROS - Review of Systems Cardiovascular: denies: chest pain, palpitations, orthopnea, paroxysmal noc. dyspnea, edema, light headedness, other Gastrointestinal: denies: nausea, vomiting, abdominal pain, diarrhea, constipation, melena, hematochezia, other Genitourinary: denies: dysuria, frequency, incontinence, hematuria, retention, other - Medication Medications: Active Medications Generic Name Dose Route Start Last Admin Trade Name Freq PRN Reason Stop Dose Admin Acetaminophen 650 mg 10/26/19 20:04 10/26/19 20:15 Tylenol PO 650 mg Q4H PRN Administration Headache/Fever or Pain Amiodarone HCl 200 mg 11/12/19 21:00 11/13/19 10:13 Cordarone PO 200 mg BID JEN Administration Amlodipine Besylate 10 mg 10/31/19 09:00 11/13/19 10:14 Norvasc PO 10 mg DAILY JEN Administration Aspirin 81 mg 10/31/19 09:00 11/13/19 10:14 Aspirin Chewable PO 81 mg DAILY JEN Administration Carvedilol 12.5 mg 11/12/19 21:00 11/13/19 10:15 Coreg PO 12.5 mg Q12HR JEN Administration Clonidine 0.1 mg 11/12/19 19:02 11/13/19 12:40 Catapres PO 0.1 mg Q6H PRN Administration SBP > 180 Ferrous Sulfate 325 mg 10/24/19 21:00 11/11/19 21:47 Feosol PO 325 mg Q2D JEN Administration Heparin Sodium (Porcine) 5,000 units 11/07/19 09:00 11/13/19 10:16 Heparin SC Not Given TID JEN Hydralazine HCl 100 mg 11/04/19 14:00 11/13/19 14:54 Apresoline PO 100 mg Q8HR JEN Administration Dobutamine HCl/Dextrose 500 mg 250 mls @ 19.92 mls/hr 11/10/19 11:00 14:54 / Device IVPB 250 mls INF JEN Administration 7.5 MCG/KG/MIN Milrinone Lactate/Dextrose 20 100 mls @ 6.64 mls/hr 11/11/19 10:30 11/13/19 12:40 mg/ Device IVPB 100 mls INF JEN Administration 0.25 MCG/KG/MIN Insulin Human Regular 0 units 10/23/19 16:10 11/09/19 16:43 Humulin R SC 2 unit .MILD SLIDING SCALE PRN Administration Mild Correctional Scale Isosorbide Dinitrate 40 mg 11/05/19 14:00 11/13/19 14:55 Isordil PO 40 mg Q8HR JEN Administration Magnesium Oxide 800 mg 11/03/19 21:00 11/13/19 10:16 Magnesium Oxide PO Not Given BID [facility] Minoxidil 2.5 mg 11/10/19 09:00 11/13/19 10:14 Minoxidil PO 2.5 mg DAILY JEN Administration Ondansetron HCl 4 mg 10/27/19 11:19 11/13/19 12:40 Zofran IVP 4 mg Q6H PRN Administration Nausea/Vomiting Potassium Chloride 10 meq 11/11/19 08:00 11/13/19 10:18 Klor-Con 10 PO Not Given QAM-WM [facility] Pyridoxine HCl 50 mg 11/05/19 09:00 11/13/19 10:13 Vitamin B 6 PO 50 mg DAILY JEN Administration Sodium Chloride 10 ml 10/25/19 21:00 11/13/19 10:16 Flush - Normal Saline IVF 10 ml Q12HR JEN Administration Sodium Chloride 10 ml 10/25/19 09:41 11/03/19 06:13 Flush - Normal Saline IVF 10 ml PRN PRN Administration Saline Flush Tamsulosin HCl 0.4 mg 11/07/19 09:00 11/13/19 10:15 Flomax PO 0.4 mg DAILY JEN Administration - Exam Heart: negative: RRR, no murmur, no gallops, no rubs, normal peripheral pulses, irregular, diminshed peripheral pulses, murmur present, II/IV, III/IV Respiratory - other findings: mild crackles to bases Gastrointestinal: soft, non-tender, normal bowel sounds Extremities: 2+ LE edema Hosp A/P (1) CHF (congestive heart failure), NYHA class III Code(s): I50.9 - HEART FAILURE, UNSPECIFIED Status: Acute (2) Nonischemic cardiomyopathy Code(s): I42.8 - OTHER CARDIOMYOPATHIES Status: Acute (3) Stage 3b chronic kidney disease Code(s): N18.3 - CHRONIC KIDNEY DISEASE, STAGE 3 (MODERATE) Status: Acute (4) T2DM (type 2 diabetes mellitus) Status: Acute - Plan will follow along creatinine, He is on milronine and dobutamine. pt has been loosing weight. will continue current diuretics. will monitor electrolytes. hydrazine dose has been increased due to elevated bp. 11/01 pt's weight today was 201. continue current meds milronine and dobutamine. 11/02 pt's creatinine is worsening, his bnp has improved. He has lost a lot of weight his current weight is 195lbs. will discuss with HF to back off the lasix for now to avoid overdiuresis. 11/03 pt's bp meds have been increased. His lasix has been decreased. creatinine still on rise will monitor. vit b6 supp started. he has been having blurry vision from his right eye which started when he came to [facility]. MRI did not show any abnormality. pt is covering his right eye. He states blurry vision improves when his right eye is covered. 11/[address] Traore will hold his lasix for geovani. will continue dobutamine and milirone. consulted ophthalmology for his blurry vision. His mri did not indicate any abnormalities. 11/[address] traore who states that he wants to restart pt's lasix. He was off his dobutamine and milirone due to iv access. will montior. His creatinine is still very high. 11/06 pt given lasix today. will monitor electrolytes. bmp for today is pending. will continue to monitor his vitals and weight. 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 11/07 spoke with HF will start pt back on lasix in am. His creatinine improved. He has added hctz for his bp. pt up ambulating. Pt feels that magnesium is causing him to have some diarrhea at times. will hold off on mag for now. 11/08 pt's bp still on the high side. his hctz was discontinued due to his elevated bp. pt had DQ tacos today. I have advised him against it and he stated that he will not do it again. His weight is on the downward trend. 11/09 will stop dig spoke with Hf physician. will hold lasix for now. pt's weight has not changed. his creatinine is still elevated. 11/10 Dr Traore to talk with compassionate care for possible LVAD. pt will talk with family. will have a family meeting in am. If not hospice is an option. 11/11 pt ordered fried chicken, i have educated him that it is not good to do so especially since we are trying to get him euvolemic. He understands and i have told the nurse not to get him outside food. will continue current tx. spoke with manager rn case who is trying to see if he can get iv meds given his financial constraints. per manager rn case she may be able to get milrinone but not dobutamine. 11/12 pt feels well, awaiting hospice set up. will continue to monitor. He was nauseated. He has been having bowl movements. will monitor.
--- NOTE | 2019-11-13 17:09 | ULT ---
Renal sonogram with duplex evaluation HISTORY: Hypertension. FINDINGS: Right kidney measures up to 9.9 cm and the left 12.0 cm. Each has a normal appearance witho ut mass or hydronephrosis. Good color and spectral Doppler flow within the abdominal aorta and renal arteries. No elevated peak systolic velocities are evident. Resistive index associated with the arcuate arteries of the right kidney is 0.8 and the left kidney 0 .9. IMPRESSION : Normal appearance of the kidneys. No evidence of obstruction. No sonographic evidence of renal artery stenosis. Elevated resistive index associated with the arcuate arteries of each kidney is nonspecific, often in dicative of chronic medical renal disease. Transcribed Date/Time: 11/13/2019 5:09 PM
[2019-11-13] MEDS: Ferrous Sulfate 325 MG TAB PO SCH (20:35)
[2019-11-14] MEDS: DOBUTamine 500 mg/250 ml 500 MG in Premix Bag 1 BAG IVPB SCH (04:06)
[2019-11-14] MEDS: Milrinone Lactate/D5W 20 MG in Premix Bag 1 BAG IVPB SCH (04:06)
[2019-11-14 04:09] LABS: #Basophils 0.1 thou/uL (0.0-0.2); #Eosinphils 0.3 thou/uL (0.0-0.7); #Lymphocytes 1.6 thou/uL (1.20-3.40); #Monocytes 0.5 thou/uL (0.11-0.59); #Neutrophils 4.7 thou/uL (1.40-6.50); %Basophils 0.8 % (0.0-1.0); %Eosinophils 4.3 % (0.0-10.0); %Lymphocytes 22.2 % (21.0-51.0); %Monocytes 6.4 % (0.0-10.0); %Neutrophils 66.3 % (42.0-75.0); Mean Corpuscular HGB CONC 31.1 g/dL (32.0-36.0); Mean Corpuscular Volume 77.2 fL (78.0-98.0); Mean Platelet Volume 9.2 fL (7.4-10.4); Platelet Count 286 thou/uL (130-400); RBC Distribution Width 15.7 % (11.5-14.5); Red Blood Cell (RBC) Count 3.73 mill/uL (4.70-6.10); White Blood Cell (WBC) Count 7.1 thou/uL (4.8-10.8)
[2019-11-14 04:32] LABS: ALT (SGPT) 10 U/L (8-55); AST (SGOT) 14 U/L (5-34); Albumin 3.2 g/dL (3.5-5.0); Alkaline Phosphatase 88 U/L (40-110); Anion Gap 10 mmol/L (10-20); BUN (Urea Nitrogen) 48 mg/dL (8.4-25.7); Bilirubin, Total 0.2 mg/dL (0.2-1.2); Calc. Creatinine Clearance 33 mL/min (70-130); Calcium 8.3 mg/dL (7.8-10.44); Carbon Dioxide 25 mmol/L (22-29); Chloride 106 mmol/L (98-107); Estimated GFR-MDRD 26; Globulin 3.1 g/dL (2.4-3.5); Glucose 100 mg/dL (70-105); Magnesium 2.2 mg/dL (1.6-2.6); Protein, Total 6.3 g/dL (6.0-8.3); Sodium 136 mmol/L (136-145)
[2019-11-14] MEDS: Isosorbide Dinitrate 20 MG TAB PO SCH ×3 (05:49→21:05)
[2019-11-14] MEDS: hydrALAZINE 25 MG TAB PO SCH ×3 (05:49→21:04)
[2019-11-14] MEDS ORDERED: Metolazone 5 MG TAB PO SCH (08:30)
[2019-11-14] MEDS: Magnesium Oxide 400 MG TAB PO SCH ×2 (08:57→21:04)
[2019-11-14] MEDS: Carvedilol 6.25 MG TAB PO SCH ×2 (08:57→21:04)
[2019-11-14] MEDS: pyridOXINE 50 MG (B6) TAB PO SCH (08:57)
[2019-11-14] MEDS: Minoxidil 2.5 MG TAB PO SCH (08:58)
[2019-11-14] MEDS: Tamsulosin HCl 0.4 MG CAP PO SCH (08:58)
[2019-11-14] MEDS: Amlodipine 10 MG TAB PO SCH (08:58)
[2019-11-14] MEDS: Potassium Chloride 10 MEQ TAB PO SCH (08:58)
[2019-11-14] MEDS: Aspirin Chewable 81 MG TAB PO SCH (08:58)
[2019-11-14] MEDS: Amiodarone 200 MG TAB PO SCH ×2 (08:58→21:04)
[2019-11-14] MEDS: Heparin 5,000 UNITS/ML VIAL SC SCH ×3 (08:59→21:04)
[2019-11-14] MEDS ORDERED: Furosemide 100 MG/10 ML VIAL SLOW IVP SCH (09:00)
--- NOTE | 2019-11-14 09:50 | PRG ---
DATE OF SERVICE: 11/14/2019 SUBJECTIVE: Mr. Niranjan Carolina had a difficult day. He said he has nausea, vomiting. He eventually was calmed down. He was able to rest overnight. He felt strong this morning that he believes he can take a few steps. He says that he is now ready to go on hospice. REVIEW OF SYSTEMS: GENERAL: There is no fever or chills. HEENT: There is no change in vision, hearing, or swallowing. He has a chronic right eye blindness. PULMONARY: See HPI. CARDIOVASCULAR: There is no palpitations or syncope. GI: Please see HPI. : He is urinating well. MUSCULOSKELETAL: There is no complaint of joint pains. NEUROLOGIC: There is no focal deficits, or weakness. INTEGUMENT: There is no new breakdown. MEDICATIONS: His cardiac medications include; 1. Amiodarone at 200 mg twice a day. 2. Amlodipine at 10 mg daily. 3. Aspirin at 81 mg daily. 4. Carvedilol at 12.5 mg twice a day. 5. Clonidine at 0.1 mg q.6 hours. 6. Dobutamine at 7.5 mcg/kg/minute IV GTT at 195 pounds. 7. Milrinone at 0.25 mcg/kg IV GTT at 195 pounds. 8. Hydralazine 100 mg q.8 hours. 9. Isosorbide dinitrate 80 mg q.8 hours. 10. Minoxidil at 2.5 mg daily. 11. He is on potassium supplement 10 mEq daily. PHYSICAL EXAMINATION: Telemetry was reviewed. His heart rate has increased at about average of 96. There is some PVC. There is no ventricular tachycardia for the last 18 hours. VITAL SIGNS: Heart rate is about 94, blood pressure 167/74. GENERAL: He is alert and conversational, sitting comfortably in bed. He is able to talk in long sentences. HEENT: Show EOMI. Oropharynx is benign with moist mucosa. NECK: Shows a strong carotid pulsation. There is JVP behind that about 13 cm. PULMONARY: There is good air movement in bilateral upper half lung [place]. There are chronic bibasilar crackles. CARDIAC: Regular rate and rhythm with occasional irregularity. There is 3/6 holosystolic murmur at the apex with radiation to the left axilla. ABDOMEN: Soft, nontender, but distended. EXTREMITIES: Lower extremities, there is no thigh edema. There is about 1+ edema from the feet towards 2/[address] up the knee that is about 0.5 cm in dimension. LABORATORY VALUES: Sodium 136, potassium 5, BUN of 48, creatinine increased from 2.92 to 3.1 despite diuretics being held and good blood pressure. ASSESSMENT: 53-year-old gentleman resides in [place] Heart Association stage D and [place] Heart Association class 4 heart failure with reduced ejection fraction. This is a nonischemic cardiomyopathy. He has both systolic and diastolic dysfunctions. He also suffers from cardiorenal syndrome. Recently, he had nonsustained ventricular tachycardia. Due to lack of insurance and lack of family support, no advanced heart failure therapy possible. Even more ominous, after one day of good response to increased dose of dobutamine, even with the increase of the dobutamine without diuretics, his renal function continued to worsen. His heart is deteriorating. Increasing CVP could have contributed to this, but at this point, it is becoming irrelevant. The patient and family understood the situation. They have decided to go on hospice. We will spend this next 24 hours to get as much volume off as possible and down titrate both drips. Please see the following for recommendations. RECOMMENDATIONS: 1. Metolazone 5 mg p.o. one dose now. 2. Give Lasix 100 mg IV one dose at 30 minutes after the metolazone. 3. At 2 p.m. today, decrease dobutamine down to 5 mcg/kg per minute based on 195 pounds. 4. At 8 p.m. tonight decrease dobutamine to 2.5 mcg/kg/minute and milrinone at 1.25 mcg/kg per minute for overnight based on 195 pounds. 5. At 6 a.m. tomorrow, stop milrinone and decrease dobutamine down to 1.25 mcg/kg/minute. 6. At 8 a.m. tomorrow, stop dobutamine. 7. Start torsemide 40 mg p.o. every morning as tomorrow morning. Based on the overall results are well consolidated, set up discharge medications for hospice. It has been a pleasure taking care of Mr. [place]. If you have any questions, please give me a call. Job ID: [id number] [facility]
[2019-11-14] MEDS: Insulin Regular 300 UNITS/3 ML VIAL SC PRN (12:40)
[2019-11-14] MEDS ORDERED: DOBUTamine 500 mg/250 ml 500 MG in Premix Bag 1 BAG IVPB SCH ×2 (14:30→21:00)
[2019-11-14] MEDS: Ondansetron PF 4 MG/2 ML Vial IVP PRN (15:37)
[2019-11-14] MEDS ORDERED: Milrinone Lactate/D5W 20 MG in Premix Bag 1 BAG IVPB SCH (21:00)
[2019-11-15] MEDS: Ondansetron PF 4 MG/2 ML Vial IVP PRN (04:41)
[2019-11-15] MEDS: hydrALAZINE 25 MG TAB PO SCH (04:44)
[2019-11-15] MEDS: Isosorbide Dinitrate 20 MG TAB PO SCH (04:45)
[2019-11-15 04:57] LABS: #Eosinphils 0.3 thou/uL (0.0-0.7); #Lymphocytes 1.4 thou/uL (1.20-3.40); #Monocytes 0.4 thou/uL (0.11-0.59); #Neutrophils 3.9 thou/uL (1.40-6.50); %Basophils 0.5 % (0.0-1.0); %Eosinophils 5.1 % (0.0-10.0); %Monocytes 6.2 % (0.0-10.0); %Neutrophils 65.2 % (42.0-75.0); Hemoglobin 8.1 g/dL (14.0-18.0); Mean Corpuscular HGB CONC 30.5 g/dL (32.0-36.0); Mean Corpuscular Hemoglobin 24.2 pg (27.0-31.0); Mean Corpuscular Volume 79.1 fL (78.0-98.0); Mean Platelet Volume 9.8 fL (7.4-10.4); Platelet Count 258 thou/uL (130-400); RBC Distribution Width 16.1 % (11.5-14.5); Red Blood Cell (RBC) Count 3.35 mill/uL (4.70-6.10)
[2019-11-15 05:35] LABS: ALT (SGPT) 11 U/L (8-55); AST (SGOT) 16 U/L (5-34); Alkaline Phosphatase 84 U/L (40-110); Anion Gap 11 mmol/L (10-20); BUN (Urea Nitrogen) 51 mg/dL (8.4-25.7); Bilirubin, Total 0.2 mg/dL (0.2-1.2); Calc. Creatinine Clearance 32 mL/min (70-130); Carbon Dioxide 25 mmol/L (22-29); Chloride 105 mmol/L (98-107); Estimated GFR-MDRD 23; Glucose 100 mg/dL (70-105); Magnesium 2.1 mg/dL (1.6-2.6); Sodium 136 mmol/L (136-145)
[2019-11-15] MEDS ORDERED: DOBUTamine 500 mg/250 ml 500 MG in Premix Bag 1 BAG IVPB SCH (06:00)
--- NOTE | 2019-11-15 07:25 | PDOC.HOSPP ---
- Subjective Encounter Date: 11/14/19 Encounter Time: 11:15 Subjective: pt up in bed feels well no complains of some n/v no abdomen pain. - Objective Vital Signs & Weight: Vital Signs (12 hours) Temp Pulse Resp BP BP Pulse Ox 11/15/19 05:13 94 L 11/15/19 04:44 77 156/70 H 11/15/19 03:30 97.4 F L 77 14 145/65 H 94 L 11/14/19 23:25 98 F 73 16 123/58 L 93 L 11/14/19 21:04 83 165/72 H 11/14/19 20:00 97.7 F 83 18 158/71 H 94 L Weight Admit Weight 250 lb Weight 182 lb 12.8 oz I&O: 11/14/19 11/15/19 11/16/19 06:59 06:59 06:59 Intake Total 1250 960 Output Total 1120 1550 Balance 130 -590 Result Diagrams: 11/15/19 04:25 11/15/19 04:25 Additional Labs: Accuchecks 11/14/19 11/14/19 20:40 16:45 POC Glucose 175 H 165 H Hospitalist ROS - Review of Systems Cardiovascular: denies: chest pain, palpitations, orthopnea, paroxysmal noc. dyspnea, edema, light headedness, other Gastrointestinal: denies: nausea, vomiting, abdominal pain, diarrhea, constipation, melena, hematochezia, other Genitourinary: denies: dysuria, frequency, incontinence, hematuria, retention, other - Medication Medications: Active Medications Generic Name Dose Route Start Last Admin Trade Name Barronq PRN Reason Stop Dose Admin Acetaminophen 650 mg 10/26/19 20:04 10/26/19 20:15 Tylenol PO 650 mg Q4H PRN Administration Headache/Fever or Pain Amiodarone HCl 200 mg 11/12/19 21:00 11/14/19 21:04 Cordarone PO 200 mg BID JEN Administration Amlodipine Besylate 10 mg 10/31/19 09:00 11/14/19 08:58 Norvasc PO 10 mg DAILY JEN Administration Aspirin 81 mg 10/31/19 09:00 11/14/19 08:58 Aspirin Chewable PO 81 mg DAILY JEN Administration Carvedilol 12.5 mg 11/12/19 21:00 11/14/19 21:04 Coreg PO 12.5 mg Q12HR JEN Administration Clonidine 0.1 mg 11/12/19 19:02 11/13/19 12:40 Catapres PO 0.1 mg Q6H PRN Administration SBP > 180 Ferrous Sulfate 325 mg 10/24/19 21:00 11/13/19 20:35 Feosol PO Not Given Q2D JEN Heparin Sodium (Porcine) 5,000 units 11/07/19 09:00 11/14/19 21:04 Heparin SC 5,000 units TID JEN Administration Hydralazine HCl 100 mg 11/04/19 14:00 11/15/19 04:44 Apresoline PO 100 mg Q8HR JEN Administration Insulin Human Regular 0 units 10/23/19 16:10 11/14/19 12:40 Humulin R SC 2 unit .MILD SLIDING SCALE PRN Administration Mild Correctional Scale Isosorbide Dinitrate 40 mg 11/05/19 14:00 11/15/19 04:45 Isordil PO 40 mg Q8HR JEN Administration Magnesium Oxide 800 mg 11/03/19 21:00 11/14/19 21:04 Magnesium Oxide PO 800 mg BID JEN Administration Minoxidil 2.5 mg 11/10/19 09:00 11/14/19 08:58 Minoxidil PO 2.5 mg DAILY JEN Administration Ondansetron HCl 4 mg 10/27/19 11:19 11/15/19 04:41 Zofran IVP 4 mg Q6H PRN Administration Nausea/Vomiting Potassium Chloride 10 meq 11/11/19 08:00 11/14/19 08:58 Klor-Con 10 PO 10 meq QAM-WM JEN Administration Pyridoxine HCl 50 mg 11/05/19 09:00 11/14/19 08:57 Vitamin B 6 PO 50 mg DAILY JEN Administration Sodium Chloride 10 ml 10/25/19 21:00 11/14/19 21:05 Flush - Normal Saline IVF 10 ml Q12HR JEN Administration Sodium Chloride 10 ml 10/25/19 09:41 11/03/19 06:13 Flush - Normal Saline IVF 10 ml PRN PRN Administration Saline Flush Tamsulosin HCl 0.4 mg 11/07/19 09:00 11/14/19 08:58 Flomax PO 0.4 mg DAILY JEN Administration - Exam Heart: negative: RRR, no murmur, no gallops, no rubs, normal peripheral pulses, irregular, diminshed peripheral pulses, murmur present, II/IV, III/IV Respiratory - other findings: mild crackles noted to bases Gastrointestinal: negative: soft, non-tender, non-distended, normal bowel sounds , no palpable masses, no hepatomegaly, no splenomegaly, no bruit, no guarding, no rigidity, tender to palpation, distended, diminished bowl sounds, voluntary guarding Extremities: 1+ LE edema Hosp A/P (1) CHF (congestive heart failure), NYHA class III Code(s): I50.9 - HEART FAILURE, UNSPECIFIED Status: Acute (2) Nonischemic cardiomyopathy Code(s): I42.8 - OTHER CARDIOMYOPATHIES Status: Acute (3) Stage 3b chronic kidney disease Code(s): N18.3 - CHRONIC KIDNEY DISEASE, STAGE 3 (MODERATE) Status: Acute (4) T2DM (type 2 diabetes mellitus) Status: Acute - Plan will follow along creatinine, He is on milronine and dobutamine. pt has been loosing weight. will continue current diuretics. will monitor electrolytes. hydrazine dose has been increased due to elevated bp. 11/01 pt's weight today was 201. continue current meds milronine and dobutamine. 11/02 pt's creatinine is worsening, his bnp has improved. He has lost a lot of weight his current weight is 195lbs. will discuss with HF to back off the lasix for now to avoid overdiuresis. 11/03 pt's bp meds have been increased. His lasix has been decreased. creatinine still on rise will monitor. vit b6 supp started. he has been having blurry vision from his right eye which started when he came to [facility]. MRI did not show any abnormality. pt is covering his right eye. He states blurry vision improves when his right eye is covered. 11/[address] Traore will hold his lasix for geovani. will continue dobutamine and milirone. consulted ophthalmology for his blurry vision. His mri did not indicate any abnormalities. 11/[address] traore who states that he wants to restart pt's lasix. He was off his dobutamine and milirone due to iv access. will montior. His creatinine is still very high. 11/06 pt given lasix today. will monitor electrolytes. bmp for today is pending. will continue to monitor his vitals and weight. 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 11/07 spoke with HF will start pt back on lasix in am. His creatinine improved. He has added hctz for his bp. pt up ambulating. Pt feels that magnesium is causing him to have some diarrhea at times. will hold off on mag for now. 11/08 pt's bp still on the high side. his hctz was discontinued due to his elevated bp. pt had DQ tacos today. I have advised him against it and he stated that he will not do it again. His weight is on the downward trend. 11/09 will stop dig spoke with [facility] physician. will hold lasix for now. pt's weight has not changed. his creatinine is still elevated. 11/10 Dr Traore to talk with compassionate care for possible LVAD. pt will talk with family. will have a family meeting in am. If not hospice is an option. 11/11 pt ordered fried chicken, i have educated him that it is not good to do so especially since we are trying to get him euvolemic. He understands and i have told the nurse not to get him outside food. will continue current tx. spoke with [employer] who is trying to see if he can get iv meds given his financial constraints. per [employer] she may be able to get milrinone but not dobutamine. 11/12 pt feels well, awaiting hospice set up. will continue to monitor. He was nauseated. He has been having bowl movements. will monitor. 11/13 will check lipase. pt will not be able to get iv meds per [employer]. Dr traore trying to wean him off the drip. pt did receive iv lasix. pt's creatinine worsening. will monitor.
[2019-11-15] MEDS ORDERED: Torsemide 20 MG TAB PO SCH (09:00)
[2019-11-15] MEDS: Amiodarone 200 MG TAB PO SCH (09:28)
[2019-11-15] MEDS: Carvedilol 6.25 MG TAB PO SCH (09:28)
[2019-11-15] MEDS: Amlodipine 10 MG TAB PO SCH (09:29)
[2019-11-15] MEDS: Minoxidil 2.5 MG TAB PO SCH (09:30)
[2019-11-15] MEDS: Tamsulosin HCl 0.4 MG CAP PO SCH (09:30)
[2019-11-15] MEDS: pyridOXINE 50 MG (B6) TAB PO SCH (09:30)
[2019-11-15] MEDS: Aspirin Chewable 81 MG TAB PO SCH (09:30)
[2019-11-15] MEDS: Heparin 5,000 UNITS/ML VIAL SC SCH (09:30)
[2019-11-15] MEDS: Potassium Chloride 10 MEQ TAB PO SCH (09:41)
[2019-11-15] MEDS: Magnesium Oxide 400 MG TAB PO SCH (09:42)
--- NOTE | 2019-11-15 10:14 | PRG ---
DATE OF SERVICE: 11/15/2019 SERVICE: Advanced Heart Failure Cardiology Consulting Service. SUBJECTIVE: Mr. Carolina had a difficult day. He continued to have nausea and vomiting. He was too weak to really walk. Dobutamine and milrinone were slowly titrated off for the last 24 hours. He did diurese with metolazone 5 mg and Lasix 100 mg IV. He was able to sleep some last night. He did not have PND last night. He got up this morning, was able to eat breakfast. He said he is ready to go hospice at home. REVIEW OF SYSTEMS: GENERAL: There is no fever, chills, or cough, but has overall weakness that is progressive. HEENT: He has right eye blindness, but no changing in hearing or swallowing. PULMONARY: He is breathing easier at rest but get short of breath when he exerts himself. CARDIAC: There is no palpitation or syncope. No chest pain. GI: Please see HPI. : He is able to urinate well. NEUROLOGIC: There is no focal deficits or new weaknesses. MUSCULOSKELETAL: There is no complaint of joint pains or muscle pains. INTEGUMENT: There are no complaints of new skin breakdown. MEDICATIONS: Cardiac medications are, 1. Dobutamine was titrated off from 7.5 mcg/kg/minute down to 0 over 24-hour period. 2. Milrinone was titrated off from 0.25 mcg/kg/minute to 0. His current medications include, 1. Amiodarone 200 mg twice a day. 2. Amlodipine 10 mg daily. 3. Aspirin 81 mg daily. 4. Carvedilol 12.5 mg daily. 5. Clonidine 0.1 mg q.6 hours. 6. Hydralazine 100 mg q.8 hours. 7. Isosorbide dinitrate at 40 mg q.8 hours. 8. Minoxidil 2.5 mg daily. 9. Potassium at 10 mEq daily. 10. Flomax at 0.4 mg daily. 11. Torsemide 40 mg q.a.m. PHYSICAL EXAMINATION: Telemetry was reviewed. He is in sinus rhythm. Average rate about 82 to 90s. There is no more ventricular tachycardia. His current physical exam, VITAL SIGNS: Heart rate 78, blood pressure 146/79. GENERAL: He is alert, conversational, resting comfortably, reclining in bed. HEENT: Show EOMI. Oropharynx benign with moist mucosa. NECK: There is still strong carotid pulsations, but JVP is elevated at about 13 cm or higher. PULMONARY: He has bibasilar crackles at the lower half. CARDIAC: He has regular rate and rhythm with 3/6 holosystolic murmur at the apex with radiation to the left axilla. There is also right ventricular heave. ABDOMEN: Mild distention. Soft, nontender. Positive bowel sounds. EXTREMITIES: His thighs does not have any edema, but he has about 1+ edema from the feet about 2/[address] out. His I's and O's, -590 mL. Apparently, was decreased off the dobutamine and milrinone and titrated off. Even though with diuretics, he gained 1 pound now, he is 182 pounds today. LABORATORY VALUES: His sodium is 136, potassium is 5, BUN is worsened at 51, creatinine continues to worsen to 3.37. There is reflection in titrating off the inotropic agents. ASSESSMENT: 53-year-old gentleman resides in [place] Heart Association stage D and [place] Heart Association class 4 heart failure with reduced ejection fraction. He has both systolic and diastolic dysfunctions. He also has a right ventricular dysfunction. It is nonischemic cardiomyopathy. 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 He also has severe and [id number] hypertension. Without insurance and without adequate family support, there is no way forward for advanced heart failure treatment such as left ventricular assist device or heart transplant; consequently, hospice is the only viable option. The patient and his family have chosen this option. With both dobutamine and milrinone titrated off, the patient is ready to go home on hospice. I would like to recommend a reduced set of cardiac medication to go home on. RECOMMENDATIONS: 1. Carvedilol 25 mg b.i.d. 2. Isosorbide mononitrate 120 mg daily. (this is easier than 3 times per day dosing of isosorbide dinitrate) 3. Hydralazine 100 mg t.i.d. 4. Amlodipine 10 mg daily. 5. Torsemide 40 mg b.i.d. 6. Potassium chloride in terms of K-Dur 10 mEq daily. 7. Magnesium oxide at 800 mg b.i.d. 8. Aspirin 81 mg daily. 9. Please provide whatever antinausea medication that he can tolerate. 10. Discontinue amiodarone; removing this can reduce nausea and make hospice more comfortable 11. Discharge to home with hospice care as planned. It has been a pleasure taking care of Mr. Carolina. If you have any questions, please give me a call. Job ID: [id number] MTDD
[2019-11-15 12:23] VITALS: BP 137/63; TEMP 97.9
--- NOTE | 2019-11-15 23:36 | DIS ---
DATE OF ADMISSION: 10/23/2019 DATE OF DISCHARGE: 11/15/2019 DISCHARGE DIAGNOSES: As of the followin. Acute on chronic systolic heart failure, [place] Heart Association class III, unknown etiology, nonischemic. 2. Nonischemic cardiomyopathy. 3. Stage IIIB chronic kidney disease. 4. Diabetes type 2. HOSPITAL COURSE: The patient is a 53-year-old male, who initially presented to the hospital on 10/22, with complaints of shortness of breath. The patient has a history of nonischemic cardiomyopathy. Initially, he was put on diuretics and Cardiology was consulted. His BNP was in the 3000. The patient was diuresed throughout the hospital stay. He also was seen by GI for anemia. At this time, I recommend against any intervention, just recommended to transfuse as needed and check H and H's. The patient was followed by heart failure specialist and was initially put on milrinone and dobutamine drip. He also underwent significant diuresis. His weight initially on 10/23 was 248 pounds, on the day of discharge was 182 pounds. Given the fact that the patient had no insurance, attempts were made for compassionate care for an LVAD. However, this did not occur. The patient's next option was to go home with hospice. The patient and the family accepted this. The patient will be discharged home to hospice. His hospital course was complicated, there was a time period where his mentation was low with altered. He did have a CT brain and also an MRI brain and Neurology was consulted. CT brain did not show any acute abnormalities and Nephrology recommended to continue the aspirin and was concerned for possible infarct, however, that was ruled out with MRI. He did have some vision loss in his right eye. At this time, he was seen by Ophthalmology also in the hospital. I recommended to follow up with the retina specialist. The patient also had a CT chest to rule out any pulmonary fibrosis, which was ruled out. PHYSICAL EXAMINATION: VITAL SIGNS: On discharge was 97.9, 75, 20, 97% on room air, 137/63. GENERAL: He is awake, alert, and oriented x3. Does not appear in distress. CV: S1, S2 present. No murmurs, rubs, or gallops. LUNGS: Mild crackles to bilateral lower lung bases. EXTREMITIES: Mild 1+ lower extremity edema. Pedal pulses present. HOME MEDICATIONS: 1. He is going to be on B6 since he had B6 deficiency, numbers below 50 mg daily. 2. Hydralazine 100 mg q.8 hours. 3. Torsemide 40 mg b.i.d. 4. Tamsulosin 0.4 daily. 5. Potassium 10 mEq daily. 6. Magnesium oxide 800 mg b.i.d. 7. Isosorbide 40 mg q.8 hours. 8. Iron 325 every two days. 9. Carvedilol 325 b.i.d. 10. Aspirin 81 mg daily. 11. Norvasc 10 mg p.o. daily. 12. I have asked him to take a stool softener daily. Also hospice had set up his equipment at home. He also was sent home with some oxygen. Job ID: [id number]
== END 2019-11-15 12:20 | disposition hospice, home (50) | DRG 291 ==
LOC: ERS 09:07 → OBSVTOIN 16:04 → 2SW 16:04 → MERGE 16:04 → 2NO 10-27 16:41
PROVIDERS: ADMIT Internal Medicine; ATTEND Internal Medicine
PROC: 02HV33Z Insertion of Infusion Device into Superior Vena Cava, Percutaneous Approach (ICD-10-PCS; principal; 2019-11-06)
PROC: B548ZZA Ultrasonography of Superior Vena Cava, Guidance (ICD-10-PCS; 2019-11-06)
DX: I13.0 Hypertensive heart and chronic kidney disease with heart failure and stage 1 through stage 4 chronic kidney disease, or unspecified chronic kidney disease (principal); I50.23 Acute on chronic systolic (congestive) heart failure; G93.41 Metabolic encephalopathy; I16.1 Hypertensive emergency; I24.8 Other forms of acute ischemic heart disease; Z51.5 Encounter for palliative care; N17.9 Acute kidney failure, unspecified; I42.8 Other cardiomyopathies; N18.3 Chronic kidney disease, stage 3 (moderate); E11.22 Type 2 diabetes mellitus with diabetic chronic kidney disease; H54.61 Unqualified visual loss, right eye, normal vision left eye; E78.5 Hyperlipidemia, unspecified; D50.9 Iron deficiency anemia, unspecified; D63.8 Anemia in other chronic diseases classified elsewhere; E11.3591 Type 2 diabetes mellitus with proliferative diabetic retinopathy without macular edema, right eye; H43.11 Vitreous hemorrhage, right eye; I34.0 Nonrheumatic mitral (valve) insufficiency; T44.5X5A Adverse effect of predominantly beta-adrenoreceptor agonists, initial encounter; R11.0 Nausea; R42 Dizziness and giddiness; Z87.891 Personal history of nicotine dependence; Z91.14 Patient's other noncompliance with medication regimen
CPT/HCPCS: 36415; 36416; 36569; 70450; 70551; 71045; 71250; 76705; 76770; 80048; 80053; 80061; 80162; 81001; 81003; 81015; 82553; 82607; 82728; 83036; 83540; 83550; 83690; 83735; 83880; 84100; 84132; 84207; 84425; 84443; 84484; 85014; 85018; 85025; 93005; 93010; 93306; 93798; 93976; 96374; C1751; J1160; J1250; J1644; J1650; J1815; J1940; J2260; J2405; J3490; P9047